=== PATIENT | male | born 1990 | race Two or more races ===

== ENCOUNTER 2024-06-20 10:05 | Outpatient (AMB) | payer OTHER, SELFPAY ==
--- NOTE | 2024-06-20 10:11 | A.OFFVIS_ITS ---
Vital Signs 06/20/24 10:14 Height 5 ft 8 in Weight 218 lb 11.177 oz BMI 33.2 BP 128/70 Blood Pressure Location Lt brachial Position Sitting Pulse 68 Pulse Source Pulse Oximeter Pulse Oximetry (%) 98 Oxygen Delivery Method Room Air Intake Visit Reasons: Colonoscopy Screening Intake Note: NEW PATIENT Oleg presents in office today for a scheduled colo scrn. Prior hx of colo/egd? None reported per referral. No relevant surgeries or FMHx. Meds and Allergies reviewed? Y Any significant concerns or questions? Cramping, diarrhea, constipation, intermittently throughout multiple years. Pharmacy verified? [facility] ([facility]; Father - Crohn's Audio Tape Librarian Required: No Allergies No Known Allergies Allergy (Verified 06/20/24 10:13) HPI HPI Colonoscopy Screening: Details: 33-year-old male with no significant past medical history is here today for initial evaluation. Patient has been sent by PCP. Patient reports that since he was in his 20s he has been dealing with frequent bowel movements. Cramping and pain prior to bowel movement. Pain in the whole abdomen. Patient denies any epigastric pain or discomfort. Denies any melena, hematochezia, unintentional weight loss or ribbon like stools. Patient reports that his father was diagnosed with Crohn's when he was a teenager. Patient reports that he has been tested for IBD in his early 20s. Patient reports that his symptoms are getting worse. Denies any mucus in his stools. Patient is avoiding lactose. Patient is eating healthy food. Patient reports that his bowel movements have nothing to do with meals. Denies postprandial diarrhea. [facility] Medical History (Updated 06/20/24 @ 10:41 by Dena Encinas, [facility]) Family history of Crohn's disease Chronic headache Erectile dysfunction Surgical History (Updated 06/20/24 @ 10:17 by TAL Serrano) Status post left shoulder hemiarthroplasty [place] teeth removed History of tonsillectomy History of adenoidectomy Family History (Updated 06/20/24 @ 10:17 by TAL Serrano) Father Crohn's disease Social History (Updated 06/20/24 @ 10:17 by TAL Serrano) Alcohol intake: current Comment: 1-2 / week Patient Tobacco Use Status: Never used Tobacco Review of Systems Const Denies weight gain and Denies weight loss ENT Reports no additional complaints, Denies dysphagia and Denies odynophagia Card Reports no additional complaints Resp Reports no additional complaints GI Denies abdominal pain, Denies belching, Denies melena, Reports bloating, Denies change in bowel habits, Reports tenesmus, Reports GI cramping, Denies dysphagia, Denies excessive flatus, Denies dyspepsia, Denies heartburn, Denies diarrhea, Reports loose stools, Denies nausea, Denies odynophagia and Denies vomiting Reports no additional complaints Musc Reports no additional complaints Neuro Reports no additional complaints Psych Reports no additional complaints Endo Reports no additional complaints Physical Exam Vital Signs: Last Vital Signs Pulse 68 06/20/24 10:14 BP 128/70 06/20/24 10:14 Pulse Ox 98 06/20/24 10:14 Oxygen Delivery Method Room Air 06/20/24 10:14 BMI result Body Mass Index 33.2 Const General: healthy appearing, no acute distress and well developed Nutritional Appearance: well nourished Orientation/consciousness: patient oriented x3 Resp Effort & Inspection: normal respiratory effort, able to speak in complete sentences, no tracheal deviation and symmetric chest movement Auscultation: clear to auscultation bilaterally Cardio Rate: regular rate GI Inspection: Yes normal to inspection and No distended Palpation (GI): Soft to palpation, not firm, nontender and No hepatosplenomegaly present Auscultation: normal bowel sounds General: Yes no CVA tenderness Back/Spine/Pelvis Back: no CVA tenderness Skin General skin exam: elasticity normal, turgor normal and dry skin Neuro General: patient oriented x3 Psych Appearance: grossly normal Mental Status: mental status grossly normal Assessment & Plan Assessment & Plan (1) Family history of Crohn's disease: Code(s): Z83.79 - Family history of other diseases of the digestive system Category: Medical (2) Diarrhea: Code(s): R19.7 - Diarrhea, unspecified Qualifiers: Diarrhea type: functional diarrhea Qualified Code(s): K59.1 - Functional diarrhea Plan Message sent to surgical schedulers to schedule colonoscopy for patient. Patien t had symptoms of diarrhea on and off for extensive time, however he does report that his symptoms are getting worse. Patient denies any melena, hematochezia, unintentional weight loss or ribbon like stools. Family history of IBD. Patient's father was diagnosed with Crohn's as a teenager. Occasional postprandial abdominal bloating. Will check CRP, fecal calprotectin and rule out celiac. Patient will return in 2 months, sooner on as needed basis. He is agreeable to this plan and verbalizes understanding of instructions. He was given the opportunity to ask questions and all questions answered. Thank you for allowing me to participate in his care Orders: Orders Transglutaminase IgA Today R10.9 - Unspecified abdominal pain C Reactive Protein Today K58.9 - Irritable bowel syndrome, unspecified Calprotectin, Fecal Today R15.9 - Full incontinence of feces Medications: New bisacodyl (Dulcolax (bisacodyl)) take 4 tabs at noon the day before your colonoscopy 20 mg (4 x 5 mg) PO ONCE 1 day 4 tabs 0RF Z12.11 - Encounter for screening for malignant neoplasm of colon polyethylene glycol 3350 (Miralax) As directed by gastroenterology department at [facility] 238 grams PO ONCE 238 grams 0RF Z12.11 - Encounter for screening for malignant neoplasm of colon Coding Level of Care Code New Pt Level 4 (53825) Diagnoses Family history of Crohn's disease Z83.79 Functional diarrhea K59.1 Diarrhea type: functional diarrhea Time Spent (min) 45 Comment 30 minutes spent with patient and additional 15 minutes spent reviewing his records
[2024-06-20 10:14] VITALS: BP 128/70; PULSE 68; O2SAT 98; BMI 33.2
--- OUTSIDE RECORDS SUMMARY | 2024-06-21 00:03 | XMS_ITS | Continuity of Care Document ---
Author Name [facility] Organization [facility] Care Team Providers Care Flange Turner Name Role Phone [facility] Unavailable Unavailable Problems Combined list of problems from Department of Defense and Veterans Affairs facilities. It does not include entries that were removed or entered in error. Problem Status Onset Date Problem Type Date of Resolution Comments Source Cervicalgia Active 013 Condition [facility] Joint pain Active 013 Condition Mar 21, 2024 Entered By: FLAVIA PINZON Comment: joint pain, localized in the hip [facility] Chronic recurrent sinusitis Active Condition [place] Exposure to potentially hazardous substance Active Condition Feb 22, 2024 Entered By: ALBIN FARRELL Comment: [facility] [place] [facility] Irritable bowel syndrome characterized by alternating bowel habit Active Condition Feb 22, 2024 Entered By: ALBIN FARRELL Comment: Alternates Between Constipation and Diarrhea; Gets Colicky Crampy ABD PainAug 2023 Entered By: ALBIN FARRELL Comment: Request Diagnost Colonoscopy to Exclude Organic Disease [place] Labral Tear Active Condition Feb 22, 2024 Entered By: ALBIN FARRELL Comment: Traumatic Tear, Labrum. L Shldr In [employer]; [place]: Was Exercising Feb 22, 2024 Entered By: ALBIN FARRELL Comment: Underwent Surg Repair [place] Mechanical low back pain Active Condition Feb 22, 2024 Entered By: ALBIN FARRELL Comment: Non-Radicular LBP x Yrs; Has Seen PT and ChiropractorAug 2023 Entered By: ALBIN FARRELL Comment: Has Had MRI of L-Spine w/i Last Two Yrs;Feb 22, 2024 Entered By: ALBIN FARRELL Comment: No Definitive Pathology Noted for the LBP; LBP is Non-RadicularAug 2023 Entered By: ALBIN FARRELL Comment: Dorsalgia, T-SpineAug 2023 Entered By: ALBIN FARRELL Comment: Gets X-Ray's T and L Spines; Do PT alsoAug 2023 Entered By: ALBIN FARRELL Comment: Is Weight-Lead [employer] [place] Migraine without aura Active Condition Feb 22, 2024 Entered By: ALBIN FARRELL Comment: Sees Private Neuro at [facility] as of 2023; Attempt Prophylaxis w/ Anti-Seizure Med;Feb 22, 2024 Entered By: ALBIN FARRELL Comment: Insomnia is a FactorAug 2023 Entered By: ALBIN FARRELL Comment: Has Had MRI of Brain: No Organic Disease [place] Primary erectile dysfunction Active Condition [place] Tinnitus Active Condition [place] Brace Inactive Condition [facility] bone cyst Active Condition [facility] joint pain, localized in the hip Active Condition [facility] cervicalgia Active Condition [facility] abdominal pain Active Condition [facility] visit for: services physical demobilization NG Active Condition [facility] groin (inguinal) pain Active Condition [facility] fatigue Active Condition [facility] diffuse joint pain (arthralgias) Inactive Condition [facility] feeling underweight Active Condition [facility] emotional lability Active Condition [facility] changed sexual interest (libido): decreased Active Condition [facility] male erectile disorder Active Condition [facility] wrist sprain Inactive Condition [facility] upper respiratory infection Inactive Condition [facility] lower back pain Active Condition [facility] dermatophytosis tinea corporis Active Condition [facility] visit for: administrative purpose Inactive Condition [facility] Other Physical Therapy Active Condition [facility] joint pain, localized in the left shoulder Active Condition [facility] Aftercare Following Surgery Of Musculoskeletal System Inactive Condition [facility] Aftercare Following Surgery Active Condition [facility] Laboratory Studies Inactive Condition [facility] visit for: preoperative orthopedic exam Inactive Condition [facility] shoulder separation Inactive Condition [facility] visit for: screening exam STD Inactive Condition [facility] acne Inactive Condition [facility] ingrowing toenail Inactive Condition [facility] otitis externa Inactive Condition [facility] acne vulgaris Inactive Condition [facility] skin disorders appendage hair follicle folliculitis Inactive Condition [facility] joint pain, localized in the shoulder Active Condition [facility] strain Inactive Condition [facility] Vaccines Prophylactic Need Inactive Condition [facility] visit for: services physical Active Condition [facility] visit for: services physical pre-deployment Active Condition [facility] visit for: issue medical certificate Inactive Condition [facility] common cold Inactive Condition [facility] sinusitis Inactive Condition [facility] pharyngitis Inactive Condition [facility] Diagnosis: ICD-10-CM M54.51 Vertebrogenic low back pain Active Diagnosis [place] Diagnosis: ICD-10-CM Z71.89 Other specified counseling Active Diagnosis [place] Diagnosis: ICD-10-CM M54.50 Low back pain, unspecified Active Diagnosis [place] Diagnosis: ICD-10-CM Z77.29 Contact with and exposure to other hazardous substances Active Diagnosis [facility] Medications Combined list of outpatient medications from Department of Defense and Veterans Affairs facilities.Medications provided include 1) outpatient medications from the last 15 months, and 2) patient-reported medications. Medication Details Route Status Patient Instructions Prescription Expires Prescription Number Last Dispense Date Ordering Provider Order Date Order Qty Source DICYCLOMINE HCL 20MG TAB TAKE TWO TABLETS BY MOUTH FOUR TIMES DAILY NEEDED (FOR IRRITABL E BOWEL SYNDROME ) ORAL ACTIVE 05/09/2025 [id number] JARED FARRELL 2023 240 [place] DICYCLOMINE HCL 20MG TAB TAKE TWO TABLETS BY MOUTH FOUR TIMES DAILY NEEDED (FOR IRRITABL E BOWEL SYNDROME ) ORAL DISCONT INUED 02/22/2025 [id number] JARED FARRELL 2023 240 [place] FLUTICASONE PROPIONATE 50MCG/SPRAY SOLN,NASAL, 16GM INSTILL 1 SPRAY INTO EACH NOSTRIL TWICE DAILY FOR NASAL IRRITATI ON/INFLA MMATION NASAL ACTIVE 05/09/2025 [id number] JARED FARRELL 2023 1 [place] IBUPROFEN 600MG TAB TAKE ONE TABLET BY MOUTH NEEDED ORAL ACTIVE JARED FARRELL 2023 [place] MELOXICAM 15MG TAB TAKE ONE TABLET BY MOUTH ONCE DAILY ORAL ACTIVE JARED FARRELL 2023 IELD OTHER CAP/TAB TAKE SEIZURE MED FOR MIGRAINE CASSIDY PROPHYLA XIS - NAME? BY MOUTH ONCE DAILY ORAL ACTIVE JARED FARRELL 2023 IELD SILDENAFIL CITRATE 100MG TAB TAKE ONE TABLET BY MOUTH ONCE DAILY ORAL ACTIVE JARED FARRELL 2023 IELD SUMATRIPTAN SUCCINATE 50MG TAB TAKE ONE TABLET BY MOUTH DIRECTED AT ONSET OF HEADACHE ; MAY REPEAT IN 2 HOURS IF FIRST DOSE IS NOT EFFECTIV E ORAL DISCONT INUED 03/23/2024 [id number] JARED FARRELL 2023 18 [place] SUMATRIPTAN SUCCINATE 50MG TAB TAKE ONE TABLET BY MOUTH DIRECTED AT ONSET OF HEADACHE ; MAY REPEAT IN 2 HOURS IF FIRST DOSE IS NOT EFFECTIV E ORAL 06/07/2024 [id number] 4 JARED FARRELL 2023 18 [place] Allergies, Adverse Reactions, Alerts Combined list of allergies from Department of Defense and Veterans Affairs facilities. It does not include entries that were removed or entered in error. Substance Category Reaction Severity Reaction type Status Date Reported Comments Source No Known Allergies Drug allergy (disorder) active 09/27/2012 [facility] Immunizations Combined list of available immunizations from the Department of Defense and Veterans Affairs facilities. 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 Status Comments Source Influenza, seasonal, injectable 4 2012 [id number] Sanofi Pasteur ([facility]) complet ed Influenza , seasonal, injectabl e DoD Influenza, seasonal, injectable, preservative free 3 2011 [id number] Sanofi Pasteur ([facility]) complet ed Influenza , seasonal, injectabl e, preservat kathya free DoD ANTHRAX VACCINE, UNSPECIFIED 2 2009 319 complet ed Lot#: [id number] [facility] I-PulseN [employer] [facility] anthrax vaccine 2 2009 [id number] [employer] [place] ([facility]) complet ed anthrax vaccine DoD VACCINIA (SMALLPOX) 1 2009 75 complet ed vaccinia (smallpox ) vaccine Lot#: [id number] [facility] 1[employer] [facility] vaccinia (smallpox) vaccine 1 2009 [id number] [facility] ([facility]) complet ed vaccinia (smallpox ) vaccine DoD ANTHRAX VACCINE, UNSPECIFIED 1 2009 319 complet ed Lot#: [id number] [facility] [employer] [facility] influenza virus vaccine, split virus (incl. purified surface antigen)-reti red CODE 1 2009 [id number] Sanofi Pasteur ([facility]) complet ed influenza virus vaccine, split virus (incl. purified surface antigen)- retired CODE DoD anthrax vaccine 1 2009 [id number] [employer] [place] ([facility]) complet ed anthrax vaccine DoD HEP A, ADULT 2 2009 52 complet ed hepatitis A vaccine, adult dosage Lot#: [id number] A [facility] hepatitis A vaccine, adult dosage 2 2009 [id number] [facility] [facility] (B) complet ed hepatitis A vaccine, adult dosage DoD TYPHOID, VICPS 1 2009 101 complet ed typhoid Vi capsular polysacch aride vaccine Lot#: [id number] Mfr: SANOFI PASTEUR [facility] typhoid Vi capsular polysaccharid e vaccine 1 2009 [id number] Sanofi Pasteur ([facility]) complet ed typhoid Vi capsular polysacch aride vaccine DoD HEP A, ADULT 1 2008 52 complet ed hepatitis A vaccine, pediatric dosage, unspecifi ed formulati on Lot#: [id number] A [facility] measles, mumps and rubella virus vaccine 1 2008 03 () Not Given measles, mumps and rubella virus vaccine DoD varicella virus vaccine 1 2008 21 () Not Given varicella virus vaccine DoD hepatitis A vaccine, pediatric dosage, unspecified formulation 1 2008 [id number] 31 [facility] ([facility]) complet ed hepatitis A vaccine, pediatric dosage, unspecifi ed formulati on DoD hepatitis B vaccine, unspecified formulation 1 2008 45 () Not Given hepatitis B vaccine, unspecifi ed formulati on DoD MENINGOCOCCAL MCV4P 1 2008 114 complet ed meningoco ccal polysacch aride (groups A, C, Y and W-135) diphtheri a toxoid conjugate vaccine (MCV4P) Lot#: [id number] Mfr: [employer] [facility] POLIO, UNSPECIFIED FORMULATION 1 2008 89 complet ed polioviru s vaccine, inactivat ed Lot#: [id number] Mfr: [facility]FI PASTEUR [facility] TDAP 2008 115 complet ed tetanus toxoid, reduced diphtheri a toxoid, and acellular pertussis vaccine, adsorbed Lot#: [id number] A [facility] poliovirus vaccine, inactivated 1 2008 [id number] 10 Sanofi Pasteur ([facility]) complet ed polioviru s vaccine, inactivat ed DoD influenza virus vaccine, split virus (incl. purified surface antigen)-reti red CODE 1 2008 [id number] 15 [employer] (CSL) complet ed influenza virus vaccine, split virus (incl. purified surface antigen)- retired CODE DoD meningococcal polysaccharid e (groups A, C, Y and W-135) diphtheria toxoid conjugate vaccine (MCV4P) 1 2008 [id number] Sanofi Pasteur ([facility]) complet ed meningoco ccal polysacch aride (groups A, C, Y and W-135) diphtheri a toxoid conjugate vaccine (MCV4P) DoD tetanus toxoid, reduced diphtheria toxoid, and acellular pertu is vaccine, adsorbed 1 2008 [id number] 115 [employer] (SKB) complet ed tetanus toxoid, reduced diphtheri a toxoid, and acellular pertussis vaccine, adsorbed DoD Novel influenza-H1N 1-09, injectable 1 2008 [id number] 1 127 [employer] l Saurabh. (NOV) complet ed Novel influenza -Y1D5-77, injectabl e DoD Results Combined list of recent chemistry, hematology and other laboratory results from Department of Defense and Veterans Affairs, ranging from 15 months to all on record, depending upon the facility. Order Name Results Value Reference Range Date Interpretation Specimen Comments Source FSH FOLLITROPI N [UNITS/VOL UME] IN SERUM OR PLASMA 2.67 1 - 19 06/14 Specimen Type: SERUM No comment entered. Ordering Provider: ALBIN FARRELL Report Released Date/Time: May 08, 2024 11:11 AM Reporting Lab: [facility] [address] [address] Performing Lab: [facility] [address] [address] [place] LH LUTROPIN [UNITS/VOL UME] IN SERUM OR PLASMA 2.51 1 - 9 06/14 Specimen Type: SERUM No comment entered. Ordering Provider: ALBIN FARRELL Report Released Date/Time: May 08, 2024 11:11 AM Reporting Lab: [facility] [address] [address] Performing Lab: [facility] [address] [address] [place] PSA PROSTATE SPECIFIC AG [MASS/VOLU ME] IN SERUM OR PLASMA 0.48 ng/mL 0.00 - 4.00 06/14 Specimen Type: SERUM No comment entered. Ordering Provider: ALBIN FARRELL Report Released Date/Time: May 08, 2024 11:11 AM Reporting Lab: [address] [address] Performing Lab: [address] [address] [place] PTH INTACT PARATHYRIN .INTACT [MASS/VOLU ME] IN SERUM OR PLASMA 57.4 pg/mL 8.7 - 77.1 06/14 Specimen Type: SERUM No comment entered. Ordering Provider: ALBIN FARRELL Report Released Date/Time: May 08, 2024 11:11 AM Reporting Lab: [address] [address] Performing Lab: [address] [address] [place] TESTOSTE LALO, TOTAL (WHV) TESTOSTERO NE [MASS/VOLU ME] IN SERUM OR PLASMA 303.02 ng/dL 220.00 - 892.00 06/14 Specimen Type: SERUM No comment entered. Ordering Provider: ALBIN FARRELL Report Released Date/Time: May 08, 2024 11:11 AM Reporting Lab: [address] [address] Performing Lab: [facility] [address] [facility] [address] [place] TESTOSTE LALO-GEOFF E (qu) TESTOSTERO NE FREE [MASS/VOLU ME] IN SERUM OR PLASMA 75.3 pg/mL 46.0 - 224.0 06/14 Specimen Type: SERUM Comment: The concentrati on of free testosteron e is derived from a mathematica l model using total testosteron e by LCMSMS, sex hormone binding globulin and albumin. This test was developed and its analytical performance characteris tics have been determined by [place], [place]. It has not been cleared or approved by the U.S. Food and Drug Administrat ion. This assay has been validated pursuant to the CLIA regulations and is used for clinical purposes. Test Performed by [facility], [facility], [address] [place] [address] [place] M.D., Ph.D., Director of Laboratorie s , CLIA [id number] TEST PERFORMED AT: , Ordering Provider: ALBIN FARRELL Report Released Date/Time: May 08, 2024 11:11 AM Reporting Lab: [address] [address] Performing Lab: [facility] [address] [address] [place] MICROALB UMIN CREATINI NE RATIO PANEL MICROALBUM IN/CREATIN INE [MASS RATIO] IN URINE 5.7 mg/g 0 - 29.9 04/13 Specimen Type: URINE No comment entered. Ordering Provider: ALBIN FARRELL Report Released Date/Time: Feb 22, 2024 01:07 PM Reporting Lab: [address] [address] Performing Lab: [address] [address] [place] MICROALB UMIN CREATINI NE RATIO PANEL MICROALBUM IN [MASS/VOLU ME] IN URINE 0.8 mg/dL 04/13 Specimen Type: URINE No comment entered. Ordering Provider: ALBIN FARRELL Report Released Date/Time: Feb 22, 2024 01:07 PM Reporting Lab: [address] [address] Performing Lab: [address] [address] [place] MICROALB UMIN CREATINI NE RATIO PANEL CREATININE [MASS/VOLU ME] IN URINE 140.93 mg/dL 04/13 Specimen Type: URINE No comment entered. Ordering Provider: ALBIN FARRELL Report Released Date/Time: Feb 22, 2024 01:07 PM Reporting Lab: [address] [address] Performing Lab: [address] [address] [place] TSH THYROTROPI N [UNITS/VOL UME] IN SERUM OR PLASMA 1.05 u[IU]/mL 0.35 - 5.00 04/13 Specimen Type: SERUM No comment entered. Ordering Provider: ALBIN FARRELL Report Released Date/Time: Feb 22, 2024 01:07 PM Reporting Lab: [address] [address] Performing Lab: [address] [address] [place] URIC ACID URATE [MASS/VOLU ME] IN SERUM OR PLASMA 6.5 mg/dL 3.5 - 7.2 04/13 Specimen Type: SERUM No comment entered. Ordering Provider: ALBIN FARRELL Report Released Date/Time: Feb 22, 2024 01:07 PM Reporting Lab: [address] [address] Performing Lab: [address] [address] [place] URINALYS IS COLOR OF URINE Light-Ye llow 04/13 Specimen Type: URINE Comment: If Glucose = >500 and Ketones are positive, please alert the Physician. Ordering Provider: ALBIN FARRELL Report Released Date/Time: Feb 22, 2024 01:07 PM Reporting Lab: [address] [address] Performing Lab: [address] [address] [place] URINALYS IS APPEARANCE OF URINE Clear 04/13 Specimen Type: URINE Comment: If Glucose = >500 and Ketones are positive, please alert the Physician. Ordering Provider: ALBIN FARRELL Report Released Date/Time: Feb 22, 2024 01:07 PM Reporting Lab: [address] [address] Performing Lab: [address] [address] [place] URINALYS IS GLUCOSE [MASS/VOLU ME] IN URINE Normalmg /dL 04/13 Specimen Type: URINE Comment: If Glucose = >500 and Ketones are positive, please alert the Physician. Ordering Provider: ALBIN FARRELL Report Released Date/Time: Feb 22, 2024 01:07 PM Reporting Lab: [address] [address] Performing Lab: [address] [address] [place] URINALYS IS KETONES [MASS/VOLU ME] IN URINE BY TEST STRIP NEGATIVE mg/dL 04/13 Specimen Type: URINE Comment: If Glucose = >500 and Ketones are positive, please alert the Physician. Ordering Provider: ALBIN FARRELL Report Released Date/Time: Feb 22, 2024 01:07 PM Reporting Lab: [address] [address] Performing Lab: [address] [address] [place] URINALYS IS ERYTHROCYT ES [PRESENCE] IN URINE SEDIMENT BY LIGHT MICROSCOPY NEGATIVE mg/dL 04/13 Specimen Type: URINE Comment: If Glucose = >500 and Ketones are positive, please alert the Physician. Ordering Provider: ALBIN FARRELL Report Released Date/Time: Feb 22, 2024 01:07 PM Reporting Lab: [address] [address] Performing Lab: [address] [address] [place] URINALYS IS PROTEIN [MASS/VOLU ME] IN URINE BY TEST STRIP NEGATIVE mg/dL 04/13 Specimen Type: URINE Comment: If Glucose = >500 and Ketones are positive, please alert the Physician. Ordering Provider: ALBIN FARRELL Report Released Date/Time: Feb 22, 2024 01:07 PM Reporting Lab: [address] [address] Performing Lab: [address] [address] [place] URINALYS IS NITRITE [PRESENCE] IN URINE NEGATIVE mg/dL 04/13 Specimen Type: URINE Comment: If Glucose = >500 and Ketones are positive, please alert the Physician. Ordering Provider: ALBIN FARRELL Report Released Date/Time: Feb 22, 2024 01:07 PM Reporting Lab: [address] [address] Performing Lab: [address] [address] [place] URINALYS IS BILIRUBIN. TOTAL [PRESENCE] IN URINE NEGATIVE mg/dL 04/13 Specimen Type: URINE Comment: If Glucose = >500 and Ketones are positive, please alert the Physician. Ordering Provider: ALBIN FARRELL Report Released Date/Time: Feb 22, 2024 01:07 PM Reporting Lab: [address] [address] Performing Lab: [address] [address] [place] URINALYS IS SPECIFIC GRAVITY OF URINE BY REFRACTOME TRY 1.024 1.016 - 1.022 04/13 H Specimen Type: URINE Comment: If Glucose = >500 and Ketones are positive, please alert the Physician. Ordering Provider: ALBIN FARRELL Report Released Date/Time: Feb 22, 2024 01:07 PM Reporting Lab: [address] [address] Performing Lab: [address] [address] [place] URINALYS IS PH OF URINE BY TEST STRIP 6.0 5.0 - 9.0 04/13 Specimen Type: URINE Comment: If Glucose = >500 and Ketones are positive, please alert the Physician. Ordering Provider: ALBIN FARRELL Report Released Date/Time: Feb 22, 2024 01:07 PM Reporting Lab: [address] [address] Performing Lab: [address] [address] [facility] UROBILINOG EN [MASS/VOLU ME] IN URINE BY TEST STRIP Normalmg /dL <2.0 - 2.0 04/13 Specimen Type: URINE Comment: If Glucose = >500 and Ketones are positive, please alert the Physician. Ordering Provider: ALBIN FARRELL Report Released Date/Time: Feb 22, 2024 01:07 PM Reporting Lab: [address] [address] Performing Lab: [address] [address] [facility] UR[facility] IS LEUKOCYTE ESTERASE [PRESENCE] IN URINE BY TEST STRIP NEGATIVE 04/13 Specimen Type: URINE Comment: If Glucose = >500 and Ketones are positive, please alert the Physician. Ordering Provider: ALBIN FARRELL Report Released Date/Time: Feb 22, 2024 01:07 PM Reporting Lab: [address] [address] Performing Lab: [address] [address] [facility] Vital Signs Combined list of inpatient and outpatient Vital Signs from Department of Defense and Veterans Affairs, ranging from 12 months to all on record, depending upon the facility. Vital Sign Value Date Comments Source SYSTOLIC BLOOD PRESSURE 121 05/08/2024 11:18:21 [place] DIASTOLIC BLOOD PRESSURE 59 05/08/2024 11:18:21 [place] PULSE OXIMETRY 97 05/08/2024 11:18:21 [place] WEIGHT 210 05/08/2024 11:18:21 [place] BMI 32kg/m2 05/08/2024 [facility].9 05/08/[facility]24 [facility]18[facility] [facility] [place] PULSE 79 05/08/2024 11:18:21 [place] RESPIRATION 18 05/08/2024 11:18:21 [place] SYSTOLIC BLOOD PRESSURE 125 02/22/2024 11:12:46 [place] DIASTOLIC BLOOD PRESSURE 73 02/22/2024 11:12:46 [place] PULSE OXIMETRY 97 02/22/2024 11:12:46 [place] 207 02/22/2024 11:12:46 [place] TEMPERATURE 98 02/22/2024 11:12:46 [place] PULSE 78 02/22/2024 11:12:46 [place] RESPIRATION 18 02/22/2024 11:12:46 [place] Encounters Combined list of: 1) Encounters from Department of Veterans Affairs facilities going back up to thelast 18 months. 2) Encounters from the Department of [facility] facilities going back up to 280 months. Location Location Details Encounter Type Encounter Number Reason For Visit Attending Provider ADM Date DC Date Status Disposition Source [employer]([facility]) OUTPATIENT [id number] Cold symptom s DAVE CARCAMO A 08/20 Sick at Home/Quarter s [employer]([facility]) [employer]([facility]) OUTPATIENT [id number] Cold symptom s worseni SUZETTE Kebede A 08/26 Released w/o Limitations [employer]([facility]) [employer](Soc ial Work ([facility])) OUTPATIENT [id number] over[place] s MEHDI Villa 10/02 Released w/o Limitations [employer](S ocial Work ([facility]) ) [employer]([facility]) OUTPATIENT [id number] JEFF Rasheed 03/23 Released w/o Limitations [employer] [employer]([facility]) OUTPATIENT [id number] DAILY- Delpoym ent YONI CONNOLLY 03/26 Released w/o Limitations [employer] OUTPATIENT [id number] 05/18 Released w/o [facility] OUTPATIENT [id number] 05/20 Released w/o [facility] OUTPATIENT [id number] 05/20 Released w/o [facility] OUTPATIENT [id number] 05/27 Released w/o Limitations [facility] [employer]([facility]) OUTPATIENT [id number] Left Shoulde r Pain GOMEZ CROOK R 03/03 Released w/o Limitations [employer]( [facility]) [employer]([facility]) OUTPATIENT [id number] acne f/u DOWNNIKOLE MICHAUD P 05/05 Released w/o Limitations [employer]([facility]) [employer]([facility] Team B) OUTPATIENT [id number] ear issues 15 GONZALO, PIPER R 07/13 Released w/o Limitations [employer]([facility] Team B) [employer]([facility] Team B) OUTPATIENT [id number] toenail removal GONZALO, PIPER R 07/16 Released w/o Limitations [employer]([facility] Team B) [employer]([facility] Team B) OUTPATIENT [id number] f/u toenail removal GONZALO, PIPER R 07/20 Released w/o Limitations [employer]([facility] Team B) [employer]([facility]) OUTPATIENT [id number] CHON Disla 07/21 Released w/o Limitations [employer]( [facility] Clinic) [employer](Ort hopedic [facility]) OUTPATIENT [id number] joint pain, localiz ed in the lt shouldtommie r PARTH ORLANDO 08/02 Released w/o Limitations [employer]([facility]oped ic Clinic) [employer]([facility] Team B) OUTPATIENT [id number] consult roxanne CHON Ramsey 08/02 Released w/o Limitations [employer]([facility] Team B) [employer]([facility] Team A) OUTPATIENT [id number] Notes Entered by: Carmelo AGUERO 21 Sep 2011 1338 ------- ------- ------- ------- -- std check NARA TONYA Hanson 09/20 Released w/o Limitations [facility](Carmelo fink [facility] Team A) [facility]) OUTPATIENT [id number] F/U MRI results lt PARTH Interiano 09/22 Released w/o Limitations [employer](O rthoped ic Clinic) [facility] ent Care [facility]) OUTPATIENT [id number] Notes Entered by: ZHAO SAHU 25 Sep 2011 1941 ------- ------- ------- ------- -- Rt HARRY Alarcon 09/24 Released with Work/Duty Limitations [facility] Medical [facility]) [facility]) OUTPATIENT [id number] Notes Entered by: FREDRICK HOYT 27 Sep 2011 0831 ------- ------- ------- ------- -- Juan Miguel delong Rt ALBIN Murcia 09/25 Released with Work/Duty Limitations [facility](O rthoped ic Clinic) [facility] Care [facility]) OUTPATIENT [id number] Notes Entered by: Heather WALTON 02 Oct 2011 1322 ------- ------- ------- ------- -- My pain meds aren't working MILDRED SHAW 10/01 Released w/o Limitations [facility]) [facility]) TELE CONSULT [id number] Notes Entered by: DIDIER GLORIA 05 Oct 2011 0848 ------- ------- ------- ------- -- Results RAMO STROUD 10/03 Released to Self Care [employer](F amily Practic e Clinic) [employer](Ort hopedic Clinic) OUTPATIENT [id number] Post op surgery 23PARTH Ponce 10/05 Released w/o Limitations [employer](O rthoped ic Clinic) [employer](Phy sical Therapy) OUTPATIENT [id number] sp L shoulde r ANUEL Mares 10/10 Released w/o Limitations [employer](P hysical Therapy ) [employer](Phy sical Therapy) OUTPATIENT [id number] lt shoulde samir SHANELLE MCKINLEY 10/11 Released w/o Limitations [employer](P hysical Therapy ) [employer](Phy sical Therapy) OUTPATIENT [id number] lt mounaSHANELLE Isaac 10/18 Released w/o Limitations [employer](P hysical Therapy ) [employer](Phy sical Therapy) OUTPATIENT [id number] SHANELLE MCKINLEY 10/19 Released w/o Limitations [employer](P hysical Therapy ) [employer](Phy sical Therapy) OUTPATIENT [id number] SHANELLE MCKINLEY 10/20 Released w/o Limitations [employer](P hysical Therapy ) [employer](Phy sical Therapy) OUTPATIENT [id number] lt SHANELLE Larsen 10/21 Released w/o Limitations [employer](P hysical Therapy ) [employer](Phy sical Therapy) OUTPATIENT [id number] lt juan miguel dawson SHANELLE MCKINLEY 10/25 Released w/o Limitations [employer](P hysical Therapy ) [employer](Gilma sandhya [facility] Team B) OUTPATIENT [id number] post CHON SANTOS 10/25 Released w/o Limitations [employer](Carmelo fink [facility] Team B) [employer](Phy sical Therapy) OUTPATIENT [id number] lt mounaSHANELLE Isaac 10/27 Released w/o Limitations [employer](P hysical Therapy ) [employer](Phy sical Therapy) OUTPATIENT [id number] lt juan miguel MCKINLEYSHANELLE Ezio 10/28 Released w/o Limitations [employer](P hysical Therapy ) [employer](Phy sical Therapy) OUTPATIENT [id number] LULI Grace 11/02 Released w/o Limitations [employer](P hysical Therapy ) [employer](Phy sical Therapy) OUTPATIENT [id number] LULI Grace 11/02 Released w/o Limitations [employer](P hysical Therapy ) [facility](Or hopedic Clinic) OUTPATIENT [id number] F/U PARTH Edmonds 11/02 Released w/o Limitations [employer](O rthoped ic Clinic) [facility]) OUTPATIENT [id number] Notes Entered by: DARWIN MAHAJAN 07 Nov 2011 2215 ------- ------- ------- ------- -- lost his post op splint MILDRED SHAW 11/06 Released w/o Limitations [employer]([facility]) [facility](Phy sical Therapy) OUTPATIENT [id number] LULI AWAN 11/10 Released w/o Limitations [employer](P hysical Therapy ) [facility] hoped[facility]) OUTPATIENT [id number] Notes Entered by: FREDRICK HOYT 12 Nov 2011 1304 ------- ------- ------- ------- -- Juan Miguel Calero with Janae morejon MICHAEL TROY 11/11 Released w/o Limitations [employer](O rthoped ic Clinic) [employer](Phy sical Therapy) OUTPATIENT [id number] LULI Grace 11/17 Released w/o Limitations [employer](P hysical Therapy ) [employer](Phy sical Therapy) OUTPATIENT [id number] LULI Grace 11/21 Released w/o Limitations [employer](P hysical Therapy ) [employer](Phy sical Therapy) OUTPATIENT [id number] lt juan miguel dawson LULI AWAN 11/22 Released w/o Limitations [employer](P hysical Therapy ) [employer](Phy sical Therapy) OUTPATIENT [id number] lt juan miguel dawson ANUEL LING 11/23 Released w/o Limitations [employer](P hysical Therapy ) [employer](Phy sical Therapy) OUTPATIENT [id number] lt juan miguel dawson LULI AWAN 11/28 Released w/o Limitations [employer](P hysical Therapy ) [employer](Ort hopedic Clinic) OUTPATIENT [id number] lt juan miguel dawson [place] [place] 11/30 Released w/o Limitations [employer](O rthoped ic Clinic) [employer](Phy sical Therapy) OUTPATIENT [id number] lt juan miguel dawson SHANELLE MCKINLEY 12/06 Released w/o Limitations [employer](P hysical Therapy ) [employer](Fli ght Medicine Clinic) OUTPATIENT [id number] renew profile FILES, BILLY Ezio 12/19 Released w/o Limitations [employer](F light Medicin e Clinic) [employer](Phy sical Therapy Clinic) OUTPATIENT [id number] Afterharinder Davidsoni ng Surgery DARRYL RUSSO 12/23 Released w/o Limitations [employer](P hysical Therapy Clinic) [employer](Ref erral Managemen t Clinic) TELE CONSULT [id number] Notes Entered by: TERESA COFFMAN 24 Dec 2011 1323 ------- ------- ------- ------- -- Physica l Therapy Results FILES, BILLY Ezio 12/23 [employer](R eferral Managem ent Clinic) [employer](Phy sical Therapy Clinic) OUTPATIENT [id number] CYNTHIA MERCADO 12/26 Released w/o Limitations [employer](P hysical Therapy Clinic) [employer](Phy sical Therapy Clinic) OUTPATIENT [id number] CYNTHIA MERCADO 12/29 Released w/o Limitations [employer](P hysical Therapy Clinic) [employer](Phy sical Therapy Clinic) OUTPATIENT [id number] ZACK VARNER 01/02 Released w/o Limitations [employer](P hysical Therapy Clinic) [employer](Phy sical Therapy Clinic) OUTPATIENT [id number] CYNTHIA MERCADO 01/09 Released w/o Limitations [employer](P hysical Therapy Clinic) [employer]([facility]hy [facility]ical Therapy Clinic) OUTPATIENT [id number] ZACK VARNER 01/13 Released w/o Limitations [employer](P hysical Therapy Clinic) [employer](Phy sical Therapy Clinic) OUTPATIENT [id number] DARRYL RUSSO 01/16 Released w/o Limitations [employer](P hysical Therapy Clinic) [employer](Phy sical Therapy Clinic) OUTPATIENT [id number] ZACK VARNER 01/20 Released w/o Limitations [employer](P hysical Therapy Clinic) [employer](Umesh caldwell [facility] Team C) OUTPATIENT [id number] PARISH Mark 01/20 Released w/o Limitations [employer](Maximiliano steele [facility] Team C) [employer](Phy sical Therapy Clinic) OUTPATIENT [id number] ZACK VARNER 01/23 Released w/o Limitations [employer](P hysical Therapy Clinic) [employer](Phy sical Therapy Clinic) OUTPATIENT [id number] ZACK VARNER 01/25 Released w/o Limitations [employer](P hysical Therapy Clinic) [employer](Umesh caldwell [facility] Team D) TELE CONSULT [id number] Notes Entered by: Rachid ANGUIANO 31 Jan 2012 0931 ------- ------- ------- ------- -- Medical in-proc EMMETT Carlson 01/30 Referred for Appointment [employer](Maximiliano steele [facility] Team D) [employer](Phy sical Therapy Clinic) OUTPATIENT [id number] DARRYL RUSSO 02/23 Released w/o Limitations [employer](P hysical Therapy Clinic) [employer](Michaeljoselin caldwell [facility] Team A) TELE CONSULT [id number] Notes Entered by: KARAN PEÑA SA 03 Mar 2012 1007 ------- ------- ------- ------- -- Med Refill CHE PEÑA 03/03 Other Not Elsewhere Classified [employer](Maximiliano mccannmigreyson [facility] Team A) [employer](Phy sical Therapy Clinic) OUTPATIENT [id number] DARRYL RUSSO 03/23 Released w/o Limitations [employer](P hysical Therapy Clinic) [employer]([facility] Medicine Clinic) OUTPATIENT [id number] Needs med renewal :CHRISTEN Choi 03/28 Released w/o Limitations [employer](F light Medicin e Clinic) [employer]([facility] Medicine [facility]) OUTPATIENT [id number] Fungal infect BILLY WICK 05/01 Released w/o Limitations [facility](F light Medicin e Clinic) [facility] Medicine [facility]) OUTPATIENT [id number] Notes Entered by: SOL HOLBROOK 08 May 2012 1404 ------- ------- ------- ------- -- [facility] RONNY Patel 05/08 Released w/o Limitations [employer](F light Medicin e Clinic) [employer]([facility] Medicine [facility]) OUTPATIENT [id number] BACK PAIN (ON GOING) RONNY SALDANA 05/16 Released w/o Limitations [employer](F light Medicin e Clinic) [employer]([facility] Medicine [facility]) OUTPATIENT [id number] (ongoin g) back pain FILESBILLY 05/23 Released with Work/Duty Limitations [employer](F light Medicin e Clinic) [facility] Medicine [facility]) OUTPATIENT [id number] Tramado l refill FILES, BILLY S 07/18 Released w/o Limitations [employer]( light Medicin e [facility]) [employer]([facility]) OUTPATIENT [id number] wrist pain VALE VALDIVIA 08/04 Released w/o Limitations [employer]( light Medicin e [facility]) [employer]([facility]) OUTPATIENT [id number] R wrist and lab f/u RONNY SALDANA 08/14 Released w/o Limitations [employer]( light Medicin e [facility]) [facility]) OUTPATIENT [id number] Notes Entered by: Rachid RUBIO 16 Aug 2012 1300 ------- ------- ------- ------- -- f/up RONNY SALDANA 08/16 Released w/o Limitations [facility]( light Medicin e [facility]) [facility]) OUTPATIENT [id number] pelvic pain FILES, BILLY S 08/21 Released w/o Limitations [facility]( light Medicin e [facility]) [facility](Uro logy CL EG) OUTPATIENT [id number] [place] [address]Dar[place]us/ 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 PAULA GARCIA FOR COMPETI TION IN October S TO DARRYL MCCALLUM 09/07 Released w/o Limitations [employer](U rology CL EG) [facility](Tyn paulette [facility] Team B) OUTPATIENT [id number] Notes Entered by: Rachid CORTES 21 Sep 2012 1137 ------- ------- ------- ------- -- Renuka perez for AGR duty CAMELIA CORTES 09/21 Released w/o Limitations [employer](Maximiliano steele [facility] Team B) [employer]([facility] Medicine [facility]) OUTPATIENT [id number] PHA at 0730/DH A 5 at 0800 RINA ELLIOTT 09/25 Released w/o Limitations [facility]( light Medicin e [facility]) [employer]([facility]) OUTPATIENT [id number] Notes Entered by: IBRAHIMA MCCULLOUGH I 01 Nov 2012 0745 ------- ------- ------- ------- -- stomach pain STONERALBIN 11/01 Sick at Home/Quarter s [employer]( light Medicin e [facility]) [employer]([facility]) OUTPATIENT [id number] Prescri ption refill FILES, BILLY Ezio 11/06 Released w/o Limitations [facility] Medic[facility]) [facility]) OUTPATIENT [id number] separat ion physica l FILES, BILLY S 11/13 Released w/o Limitations [facility] TELE CONSULT [id number] Notes Entered by: Azalea WICK 17 Nov 2012 1441 ------- ------- ------- ------- -- MRI results FILES, BILLY Holguin 11/17 [employer]([facility] ent) [facility]) OUTPATIENT [id number] bump on side FILES, BILLY Holguin 12/07 Released w/o Limitations [facility]( light Medicin e [facility]) [facility] Outpatient Encounter [id number] Diagnos is: ICD-10- CM Z77.29 Contact with and exposur e to other hazardo us substan ekya<br/ > Pilar HAZEL 04/29 [facility] [place] [facility] Outpatient Encounter [id number] 12/15 [facility] [place] [facility] En[facility] [id number] 01/18 [facility] En[facility] [id number] 01/19 [facility] En[facility] [id number] 02/05 [facility] En[facility] [id number] 1.02/05 [facility] En[facility] [id number] 02/21 [facility] [place] O/P EST MOD 30 MIN [id number] Diagnos is: ICD-10- CM M54.50 Low back pain, unspeci fied
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
NAHOMI FRIED 05/01 [facility] XIHAE OFFICE O/P EST MOD 30 MIN [id number] 1BY. Diagnos is: ICD-10- CM M54.50 Low back pain, unspeci fied
PAWAN FARRELL Joselin 05[facility] Outpatient Encounter [id number] 1.06/14 [facility] Outpatient Encounter [id number] 1.06/14 [facility]OP EST NOVEMBER X REQ PHY/QHP [id number] 1BY. 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
NAHOMI FRIED 06/18 [facility] Procedures Combined list of: 1) Procedures from Department of Veterans Affairs facilities going back up to thelast 18 months, not all VA non-surgical procedures are included; 2) All procedures from the Department of Defense facilities. Procedure Procedure Type Code Date Perfomer Comments [facility] PHYSICAL THERAPY RE-EVALUATION 012 DoD PHYSICAL THERAPY RE-EVALUATION 012 DoD APPLICATION OF A MODALITY TO 1 OR MORE AREAS; HOT OR COLD PACKS 012 DoD THERAPEUTIC PROCEDURE, 1 OR MORE AREAS, EACH 15 MINUTES; THERAPEUTIC EXERCISES TO DEVELOP STRENGTH AND ENDURANCE, RANGE OF MOTION AND FLEXIBILITY 012 DoD APPLICATION OF A MODALITY TO 1 OR MORE AREAS; HOT OR COLD PACKS 012 DoD APPLICATION OF A MODALITY TO 1 OR MORE AREAS; HOT OR COLD PACKS 012 DoD APPLICATION OF A MODALITY TO 1 OR MORE AREAS; HOT OR COLD PACKS 012 DoD APPLICATION OF A MODALITY TO 1 OR MORE AREAS; HOT OR COLD PACKS [facility] APPLICATION OF A MODALITY TO 1 OR MORE AREAS; HOT OR COLD PACKS [facility] APPLICATION OF A MODALITY TO 1 OR MORE AREAS; HOT OR COLD PACKS [facility] APPLICATION OF A MODALITY TO 1 OR MORE AREAS; HOT OR COLD PACKS [facility] APPLICATION OF A MODALITY TO 1 OR MORE AREAS; HOT OR COLD PACKS [facility] PSYCHIATRIC DIAGNOSTIC INTERVIEW EXAMINATION [facility] THERAPEUTIC, PROPHYLACTIC, OR DIAGNOSTIC INJECTION (SPECIFY SUBSTANCE OR DRUG); SUBCUTANEOUS OR INTRAMUSCULAR [facility] THERAPEUTIC PROCEDURE, 1 OR MORE AREAS, EACH 15 MINUTES; THERAPEUTIC EXERCISES TO DEVELOP STRENGTH AND ENDURANCE, RANGE OF MOTION AND FLEXIBILITY [facility] THERAPEUTIC PROCEDURE, 1 OR MORE AREAS, EACH 15 MINUTES; THERAPEUTIC EXERCISES TO DEVELOP STRENGTH AND ENDURANCE, RANGE OF MOTION AND FLEXIBILITY [facility] PHYSICAL THERAPY RE-EVALUATION [facility] THERAPEUTIC PROCEDURE, 1 OR MORE AREAS, EACH 15 MINUTES; THERAPEUTIC EXERCISES TO DEVELOP STRENGTH AND ENDURANCE, RANGE OF MOTION AND FLEXIBILITY [facility] THERAPEUTIC PROCEDURE, 1 OR MORE AREAS, EACH 15 MINUTES; THERAPEUTIC EXERCISES TO DEVELOP STRENGTH AND ENDURANCE, RANGE OF MOTION AND FLEXIBILITY [facility] THERAPEUTIC PROCEDURE, 1 OR MORE AREAS, EACH 15 MINUTES; THERAPEUTIC EXERCISES TO DEVELOP STRENGTH AND ENDURANCE, RANGE OF MOTION AND FLEXIBILITY [facility] THERAPEUTIC PROCEDURE, 1 OR MORE AREAS, EACH 15 MINUTES; THERAPEUTIC EXERCISES TO DEVELOP STRENGTH AND ENDURANCE, RANGE OF MOTION AND FLEXIBILITY [facility] THERAPEUTIC PROCEDURE, 1 OR MORE AREAS, EACH 15 MINUTES; THERAPEUTIC EXERCISES TO DEVELOP STRENGTH AND ENDURANCE, RANGE OF MOTION AND FLEXIBILITY [facility] THERAPEUTIC PROCEDURE, 1 OR MORE AREAS, EACH 15 MINUTES; THERAPEUTIC EXERCISES TO DEVELOP STRENGTH AND ENDURANCE, RANGE OF MOTION AND FLEXIBILITY DoD THERAPEUTIC PROCEDURE, 1 OR MORE AREAS, EACH 15 MINUTES; THERAPEUTIC EXERCISES TO DEVELOP STRENGTH AND ENDURANCE, RANGE OF MOTION AND FLEXIBILITY [facility] THERAPEUTIC PROCEDURE, 1 OR MORE AREAS, EACH 15 MINUTES; THERAPEUTIC EXERCISES TO DEVELOP STRENGTH AND ENDURANCE, RANGE OF MOTION AND FLEXIBILITY DoD THERAPEUTIC PROCEDURE, 1 OR MORE AREAS, EACH 15 MINUTES; THERAPEUTIC EXERCISES TO DEVELOP STRENGTH AND ENDURANCE, RANGE OF MOTION AND FLEXIBILITY [facility] THERAPEUTIC PROCEDURE, 1 OR MORE AREAS, EACH 15 MINUTES; THERAPEUTIC EXERCISES TO DEVELOP STRENGTH AND ENDURANCE, RANGE OF MOTION AND FLEXIBILITY [facility] THERAPEUTIC PROCEDURE, 1 OR MORE AREAS, EACH 15 MINUTES; THERAPEUTIC EXERCISES TO DEVELOP STRENGTH AND ENDURANCE, RANGE OF MOTION AND FLEXIBILITY [facility] THERAPEUTIC PROCEDURE, 1 OR MORE AREAS, EACH 15 MINUTES; THERAPEUTIC EXERCISES TO DEVELOP STRENGTH AND ENDURANCE, RANGE OF MOTION AND FLEXIBILITY [facility] THERAPEUTIC PROCEDURE, 1 OR MORE AREAS, EACH 15 MINUTES; THERAPEUTIC EXERCISES TO DEVELOP STRENGTH AND ENDURANCE, RANGE OF MOTION AND FLEXIBILITY [facility] THERAPEUTIC PROCEDURE, 1 OR MORE AREAS, EACH 15 MINUTES; THERAPEUTIC EXERCISES TO DEVELOP STRENGTH AND ENDURANCE, RANGE OF MOTION AND FLEXIBILITY [facility] SELF-CARE/HOME MANAGMENT TRAIN (EG,ACT OF DAILY LIVING (ADL) &COMPENSAT TRAIN,MEAL PREPARATION,SAFETY PROCS,AND INSTRUCT IN USE OF ASST TECHNOLOGY DEV/ADPT EQUIP) DIR ONE-ON-ONE CONT,EA 15 MINUTES [facility] UNLISTED SPECIAL SERVICE, PROCEDURE OR REPORT [facility] SHOULDER SLING OR VEST DESIGN, ABDUCTION RESTRAINER, WITH OR WITHOUT SWATHE CONTROL, PREFABRICATED, INCLUDES FITTING AND ADJUSTMENT [facility] EXCISION OF NAIL AND NAIL MATRIX, PARTIAL OR COMPLETE (EG, INGROWN OR DEFORMED NAIL), FOR PERMANENT REMOVAL [facility] NEUROPSYCHOLOGICAL TESTING (EG, [place] CARD SORTING TEST), ADMINISTERED BY A COMPUTER, WITH QUALIFIED HEALTH PICKED EDGE SEWING MACHINE OPERATOR INTERPRETATION AND REPORT 010 [facility] Physical Therapy Service Re-Evaluation Physical Therapy Service Re-Evaluation [id number] DARRYL RUSSO No treatment today, progressed to self care program at this time [facility] Physical Therapy Service Re-Evaluation Physical Therapy Service Re-Evaluation [id number] DARRYL RUSSO No treatment today, progressed to gym program, will follow up in 4 weeks [facility] Physical Therapy: ___ Se ion Segments, 15 Minutes Each Physical Therapy: ___ Session Segments, 15 Minutes Each [id number] ZACK VARNER Pt performed exercise x 45min to include: UBE x 5min, shrugs, carbon capture power plant operator rows 3x10, cable column ER/Extension/ sidelying ER prone shoulder and 3x10 ea, pour fly press w/rotation 3x10 ea, chest press incline pec fly 3x10 ea, fly push ups 30x, supine tri ext 3x10 rear delt 3x10 DoD Modalities Cryotherapy Cold Packs Modalities Cryotherapy Cold Packs [id number] ZACK VARNER Cold pack to shoulder x 1-10min after exercise. DoD Modalities Cryotherapy Cold Packs Modalities Cryotherapy Cold Packs [id number] 012 ZACK VARNER Cold pack to shoulder x 1-10min after exercise. DoD Physical Therapy: ___ Se ion Segments, 15 Minutes Each Physical Therapy: ___ Session Segments, 15 Minutes Each 012 ZACK VARNER Pt performed exercise x 45min to include: UBE x 5min, shrugs, carbon capture power plant operator rows 3x10, cable column ER/Extension/ sidelying ER prone shoulder and 3x10 ea, pour fly press w/rotation 3x10 ea, chest press incline pec fly 3x10 ea, fly push ups 30x, supine tri ext 3x10 rear delt 3x10 DoD Modalities Cryotherapy Cold Packs Modalities Cryotherapy Cold Packs [id number] 012 ZACK VARNER Cold pack to shoulder x 1-10min after exercise. DoD Physical Therapy: ___ Se ion Segments, 15 Minutes Each Physical Therapy: ___ Session Segments, 15 Minutes Each 012 ZACK VARNER Pt performed exercise x 45min to include: UBE x 5min, shrugs, carbon capture power plant operator rows 3x10, cable column ER/Extension/ sidelying ER prone shoulder and 3x10 ea, pour fly press w/rotation 3x10 ea, chest press incline pec fly 3x10 ea, fly push ups 30x, supine tri ext 3x10 rear delt 3x10 DoD Modalities Cryotherapy Cold Packs Modalities Cryotherapy Cold Packs [id number] 012 DARRYL RUSSO 10 minutes to left shoulder after exercises DoD Physical Therapy: ___ Se ion Segments, 15 Minutes Each Physical Therapy: ___ Session Segments, 15 Minutes Each [id number] 012 DARRYL RUSSO 45 minutes of strengthening for the shoulder DoD Physical Therapy Service Re-Evaluation Physical Therapy Service Re-Evaluation [id number] KARAN, DARRYL D DoD Modalities Cryotherapy Cold Packs Modalities Cryotherapy Cold Packs 84079 012 ZACK VARNER Cold pack to shoulder x 1-10min after exercise. DoD Physical Therapy: ___ Se ion Segments, 15 Minutes Each Physical Therapy: ___ Session Segments, 15 Minutes Each 012 ZACK VARNER Exercises per POC x 40 minutes to include: UBE 5 minutes, wall slides flexion and abduction 10 sec x 10 reps, shrugs 30# 3 x 10 reps, carbon capture power plant operator rows 20# 3 x 10 reps, ER stretch with cane 10 sec holds x 10 reps, cable column shoulder ER 10# and extension 20# 3 x 10 reps each, SL ER 7# 3 x 10 reps, prone shoulder abduction 6# 3 x 10 reps, rear deltoid on incline bench 6# 3 x 10 reps, triceps extension with palm down 6# 3 x 10 reps, push ups on floor x 30 reps, and IR belt stretch 10 sec holds x 10 reps. DoD Modalities Cryotherapy Cold Packs Modalities Cryotherapy Cold Packs [id number] 012 CYNTHIA MRECADO CP to shoulder after exercises x 10 minutes DoD Physical Therapy: ___ Se ion Segments, 15 Minutes Each Physical Therapy: ___ Session Segments, 15 Minutes Each 012 JESSCYNTHIA SEARS Exercises per POC x 40 minutes to include: UBE 5 minutes, wall slides flexion and abduction 10 sec x 10 reps, shrugs 25# 3 x 10 reps, carbon capture power plant operator rows 20# 3 x 10 reps, ER stretch with cane 10 sec holds x 10 reps, cable column shoulder ER 10# and extension 20# 3 x 10 reps each, SL ER 6# 3 x 10 reps, prone shoulder abduction 5# 3 x 10 reps, rear deltoid on incline bench 6# 3 x 10 reps, triceps extension with palm down 6# 3 x 10 reps, push ups on floor x 30 reps, and IR belt stretch 10 sec holds x 10 reps. DoD Modalities Cryotherapy Cold Packs Modalities Cryotherapy Cold Packs 13317 012 ZACK VARNER Cold pack to shoulder x 1-10min after exercise. DoD Physical Therapy: ___ Se ion Segments, 15 Minutes Each Physical Therapy: ___ Session Segments, 15 Minutes Each [id number] 012 ZACK VARNER Exercises per POC x 40 minutes to include: UBE 5 minutes, wall slides flexion and abduction 10 sec x 10 reps, shrugs 25# 3 x 10 reps, carbon capture power plant operator rows 20# 3 x 10 reps, ER stretch with cane 10 sec holds x 10 reps, cable column shoulder ER 10# and extension 20# 3 x 10 reps each, SL ER 6# 3 x 10 reps, prone shoulder abduction 5# 3 x 10 reps, rear deltoid on incline bench 6# 3 x 10 reps, triceps extension with palm down 6# 3 x 10 reps, push up progression low mat about 2' from ground x 30 reps, and IR belt stretch 10 sec holds x 10 reps. DoD Modalities Cryotherapy Cold Packs Modalities Cryotherapy Cold Packs 56213 012 CIRILO MERCADOISSA CP to shoulder after exercises x 10 minutes DoD Physical Therapy: ___ Se ion Segments, 15 Minutes Each Physical Therapy: ___ Session Segments, 15 Minutes Each [id number] 012 JESS, CYNTHIA Exercises per POC x 40 minutes to include: UBE 5 minutes, wall slides flexion and abduction 10 sec x 10 reps, shrugs 20# 3 x 10 reps, carbon capture power plant operator rows 15# 3 x 10 reps, ER stretch with cane 10 sec holds x 10 reps, cable column shoulder ER 10# and extension 15# 3 x 10 reps each, SL ER 5# 3 x 10 reps, prone shoulder abduction 3# 3 x 10 reps, rear deltoid on incline bench 5# 3 x 10 reps, triceps extension with palm down 5# 3 x 10 reps, push up progression low mat about 3' from ground x 30 reps, and IR belt stretch 10 sec holds x 10 reps. DoD Physical Therapy: ___ Se ion Segments, 15 Minutes Each Physical Therapy: ___ Session Segments, 15 Minutes Each [id number] 012 JESS, CYNTHIA Exercises per POC x 40 minutes to include: UBE 5 minutes, wall slides flexion and abduction 10 sec x 10 reps, shrugs 10# 3 x 10 reps, carbon capture power plant operator rows 10# 3 x 10 reps, ER stretch with cane 10 sec holds x 10 reps, cable column shoulder ER and extension 53 3 x 10 reps each, SL ER 3# 3 x 10 reps, prone shoulder abduction 1# 3 x 10 reps, rear deltoid on incline bench 4# 3 x 10 reps, push up progression low mat x 30 reps, and IR belt stretch 10 sec holds x 10 reps. DoD Modalities Cryotherapy Cold Packs Modalities Cryotherapy Cold Packs 38990 012 CYNTHIA MERCADO DoD Modalities Cryotherapy Cold Packs Modalities Cryotherapy Cold Packs 62931 012 DARRYL RUSSO 10 minutes to the left shoulder after exercises DoD Physical Therapy: ___ Se ion Segments, 15 Minutes Each Physical Therapy: ___ Session Segments, 15 Minutes Each [id number] 012 DARRYL RUSSO 45 minutes of stretching and strengthening for the shoulder [facility] Physical Therapy Service Evaluation Physical Therapy Service Evaluation 76010 012 DARRYL RUSSO A isted Exercises [place] ROM [place] [address]4925 012 SHANELLE MCKINLEY isted Exercises [place] 85681 012 LULI AWAN [facility] Physical Therapy Service Re-Evaluation Physical Therapy Service Re-Evaluation 46407 012 ANUEL LING A isted Ex[place] [address] 012 LULI AWAN A isted Ex[place] 98454 012 LULI AWAN A isted Ex[place] 41253 012 LULI AWAN A isted Exercises [place] [address] 012 LULI AWAN A isted Ex[place] [address] 012 LULI AWAN A isted Ex[place] [address] 012 SHANELLE MCKINLEY A isted [place] [address] 012 SHANELLE MCKINLEY A isted Ex[place] [address] 012 SHANELLE MCKINLEY [facility] A isted Ex[place] [address] 012 SHANELLE MCKINLEY A isted Ex[place] [address] 012 SHANELLE MCKINLEY A isted [place] [address] 012 SHANELLE MCKINLEY A isted Exercises [place] 11673 012 SHANELLE MCKINLEY A isted Exercises [place] [address] 012 SHANELLE MCKINLEY [facility] Phys Therapy Education Self Care Training - Per 15 Minutes Phys Therapy Education Self Care Training - Per 15 Minutes 84568 ANUEL LING [facility] Physical Therapy Service Evaluation Physical Therapy Service Evaluation [id number] ANUEL LING [facility] Shoulder sling or vest design, abduction restrainer, with or without swathe control, prefabricated, includes fitting and adjustment LIZA MARSH Applied (M) shoulder immobilizer sling with swathe to Rt shoulder @ 2042L. [facility] Part Permanent Excis Nail, Matrix R First Toe Medial Border Part Permanent Excis Nail, Matrix R First Toe Medial Border [id number] was primary provider, Capt Sánchez was 1st assist [facility] Psychometric Neuropsych Testing Battery Admin By Computer Psychometric Neuropsych Testing Battery Admin By Computer [id number] GERMAN LUKE [facility] Psychiatric Diagnostic Evaluation Comprehensive Examination Psychiatric Diagnostic Evaluation Comprehensive Examination [id number] 010 MEHDI MAHONEY [facility] Social History Combined list of available smoking, tobacco, and other social history from Department of Defense and Veterans Affairs facilities. Social History Type Response Date Comment [facility] e Tobacco smoking status [facility] NEVER USED 02/22/20 24 [place] This section is an empty soc ial history section. [facility] Plan of Care List of future care activities from Department of Veterans Affairs facilities. Additional future care activities may be listed in the Assessment and Plan section. Date/Time Care Activity Care Activity Detail Facili ty 06/20/2024 AMBULATORY - NONE AMBULATORY - NONE [facility] [place] [facility] 07/18/2024 AMBULATORY - REHAB MEDICINE AMBULATORY - REHAB MEDICINE [place] 07/26/2024 AMBULATORY - MEDICINE AMBULATORY - MEDICI [place] 05/08/2024 Consult Order HOME SLEEP STUDY NOX/SPOPC OUTPT Cons Lead Atg Developer's Choice [place] 05/16/2024 Laboratory - Knife Machine Operator ry Order TESTOSTERONE-FREE (qu) BLOOD (RED-PLAIN) [facility] 05/16/2024 Laboratory - Knife Machine Operator ry Order TESTOSTERONE, TOTAL (WHV) BLOOD (SST-GOLD) [facility] 05/23/2024 Laboratory - Knife Machine Operator ry Order TSH BLOOD (SST-SERUM) [facility] 05/23/2024 Laboratory - Knife Machine Operator ry Order TESTOSTERONE, TOTAL (WHV) BLOOD (SST-GOLD) [facility] 05/23/2024 Laboratory - Knife Machine Operator ry Order TESTOSTERONE-FREE (qu) BLOOD (RED-PLAIN) [facility] 05/23/2024 Laboratory - Knife Machine Operator ry Order FSH BLOOD (RED-PLAIN) [facility] 05/23/2024 Laboratory - Knife Machine Operator ry Order LH BLOOD (SST-SERUM) [facility] 06/14/2024 Consult Order COMMUNITY CARE-B H PSYCHOTHERAPY Cons Lead Atg Developer's [facility]
--- OUTSIDE RECORDS SUMMARY | 2024-06-21 00:03 | XMS_ITS ---
Author Name [facility] [place] Organization [facility] [place] Address [address] [place] [id number] Care Team Providers Care Supervising Appraiser Name Role Phone ALBIN FARRELL Primary Care Provider Unavailabl e Selected Encounter This section includes the information on record at [place] for the Encounter. Date/Time Encounter Type Encounter Description Reason Pro vider Source Jan 19, 2024 02:00 PM Outpatient Encounter TELEPHONE PRIMARY CARE I[facility] Encounter Template Text not used by [place] Plan of Treatment: Future Appointments (+ 6 months) and Future Tests (+/- 45 days) The Plan of Treatment section includes future care activities for the patient from all [place] treatmentfacilities. This section includes future appointments and future orders which are active, pending or scheduled. Future Appointments This section includes appointments that were scheduled to occur 6 months from the date of the Encounter, up to a maximum of 20 appointments. The data comes from all [place] treatment facilities. Appointment Date/Time Appointment Type Appointme nt Facility Name Feb 22, 2024 11:00 AM AMBULATORY [facility] May 01, 2024 08:30 [facility] May 08, 2024 10:30 AM [facility]IC[facility] Jun 14, 2024 10:30 AM AMBULATORY - PSYCHIATRY [facility] Jun 18, 2024 02:30 PM AMBULATORY - REHAB MEDICIN E [place] Jun 20, 2024 10:00 AM AMBULATORY - NONE [facility] Jul 18, 2024 07:30 AM AMBULATORY - REHAB [facility] Active, Pending, and Scheduled Orders This section includes a listing of several types of active, pending, and scheduled orders, including clinic medications orders, diagnostic test orders, procedure orders and consult orders; where the start date of the order is 45 days before the date of the Encounter or 45 days after the date of theEncounter. The data comes from all [place] treatment facilities. Test Date/Time Test Type Test Details Facility Name Feb 22, 2024 11:53 AM Consult Order COMMUNITY CARE-COLONOSCOPY DIAGNOSTIC Cons Restaurant Cashier's Choice [place] Encounter Notes: All associated encounter notes This section contains the clinical notes associated to the Encounter. Date/Time Encounter Note(s) Provider Source Jan 19, 2024 02:00 PM PREVENTIVE MEDICINE NURSING NOTE: LOCAL TITLE: CLINICAL REMINDERS/NURSING STANDARD TITLE: PREVENTIVE MEDICINE NURSING NOTE DATE OF NOTE: JAN 19, 2024@14:00 ENTRY DATE: JAN 19, 2024@14:00:35 AUTHOR: LEEROY ARNETT EXP COSIGNER: URGENCY: STATUS: COMPLETED Advance Directive Screen MH AD: Patient does not have an Advance Directive completed and is requesting more information. The patient received education about Advance Directives and written notification of his/her rights. Vet was sent an advanced directive and was asked to fill out and bring in for PCP appt Td / Tdap Immunization: Td/Tdap given previously - written records available The patient has previously received the Tetanus, Diphtheria, Pertussis vaccine (Tdap). Documented: TDAP Historical Date Administered: Jun 13, 2009 Lot: [id number] Exp Date: Unknown Outside Location: Outside Healthcare Provider Information Source: FROM OTHER REGISTRY Comment: tetanus toxoid, reduced diphtheria toxoid, and acellular pertussis vaccine, adsorbed Documented: VACCINIA (SMALLPOX) Historical Date Administered: Mar 23, 2010 Series: Series 1 Lot: [id number] Exp Date: Unknown Outside Location: Outside Healthcare Provider Information Source: FROM OTHER REGISTRY Comment: vaccinia (smallpox) vaccine Documented: TYPHOID, VICPS Historical Date Administered: Oct 02, 2009 Series: Series 1 Head Of Cytogenetics: SANOFI PASTEUR Lot: [id number] Exp Date: Unknown Outside Location: Outside Healthcare Provider Information Source: FROM OTHER REGISTRY Comment: typhoid Vi capsular polysaccharide vaccine Documented: POLIO, UNSPECIFIED FORMULATION Historical Date Administered: Jun 13, 2009 Series: Series 1 Head Of Cytogenetics: SANOFI PASTEUR Lot: [id number] Exp Date: Unknown Outside Location: Outside Healthcare Provider Information Source: FROM OTHER REGISTRY Comment: poliovirus vaccine, inactivated Documented: MENINGOCOCCAL MCV4P Historical Date Administered: Jun 13, 2009 Series: Series 1 Head Of Cytogenetics: SANOFI PASTEUR Lot: [id number] Exp Date: Unknown Outside Location: Outside Healthcare Provider Information Source: FROM OTHER REGISTRY Comment: meningococcal polysaccharide (groups A, C, Y and W-135) diphtheria toxoid conjugate vaccine (MCV4P) Documented: HEP A, ADULT Historical Date Administered: Jun 19, 2009 Series: Series 1 Lot: [id number] Exp Date: Unknown Outside Location: Outside Healthcare Provider Information Source: FROM OTHER REGISTRY Comment: hepatitis A vaccine, pediatric dosage, unspecified formulation Documented: HEP A, ADULT Historical Date Administered: Jan 26, 2010 Series: Series 2 Lot: [id number] Exp Date: Unknown Outside Location: Outside Healthcare Provider Information Source: FROM OTHER REGISTRY Comment: hepatitis A vaccine, adult dosage Documented: ANTHRAX VACCINE, UNSPECIFIED Historical Date Administered: Mar 20, 2010 Series: Series 1 Lot: [id number] Exp Date: Unknown Outside Location: Outside Healthcare Provider Information Source: FROM OTHER REGISTRY Documented: ANTHRAX VACCINE, UNSPECIFIED Historical Date Administered: May 17, 2010 Series: Series 2 Lot: [id number] Exp Date: Unknown Outside Location: Outside Healthcare Provider Information Source: FROM OTHER REGISTRY /orquidea/ LEEROY ARNETT MSN Ed., BSN STONE CARVER NURSE Signed: 03/21/2024 09:10 LEEROY ARNETT CNTRL WSN [facility]
--- OUTSIDE RECORDS SUMMARY | 2024-06-21 00:03 | XMS_ITS ---
Author Name [facility] ([place] Organization Department of [facility] ([place]) Address [address] [place] [address] Care Team Providers Care Gravity Meter Operator Name Role Phone ALBIN FARRELL Primary Care Provider Unavailabl e Selected Encounter This section includes the information on record at [place] for the Encounter. Date/Time Encounter Type Encounter Description Reason Pro vider Source Feb 06, 2024 12:13 PM Outpatient Encounter [facility] IHE Encounter Template Text not used by [place] Plan of Treatment: Future Appointments (+ 6 months) and Future Tests (+/- 45 days) The Plan of Treatment section includes future care activities for the patient from all [place] treatmentfacilities. This section includes future appointments and future orders which are active, pending or scheduled. Future Appointments This section includes appointments that were scheduled to occur 6 months from the date of the Encounter, up to a maximum of 20 appointments. The data comes from all [place] treatment facilities. Appointment Date/Time Appointment Type Appointme nt Facility Name Feb 22, 2024 11:00 [facility] May 01, 2024 08:30 [facility] 08[facility]24 10:30 AM [facility] Jun 14, 2024 10:30 AM AMBULATORY - PSYCHIATRY [facility] Jun 18, 2024 02:30 PM AMBULATORY - REHAB [facility] Jun 20, 2024 10:00 [facility] Jul 18, 2024 07:30 AM AMBULATORY - RE[facility]AB [facility] [place] Jul 26, 2024 10:30 AM [facility] Active, Pending, and Scheduled Orders This section includes a listing of several types of active, pending, and scheduled orders, including clinic medications orders, diagnostic test orders, procedure orders and consult orders; where the start date of the order is 45 days before the date of the Encounter or 45 days after the date of theEncounter. The data comes from all [place] treatment facilities. Test Date/Time Test Type Test Details Facility Name Feb 22, 2024 11:53 AM Consult Order COMMUNITY CARE-COLONOSCOPY DIAGNOSTIC Cons Line Service Attendant's Choice [place] Encounter Notes: All associated encounter notes This section contains the clinical notes associated to the Encounter. Date/Time Encounter Note(s) Provider Source Feb 06, 2024 02:08 PM ADDENDUM: LOCAL TITLE: Addendum STANDARD TITLE: ADDENDUM DATE OF NOTE: FEB 06, 2024@14:08:58 ENTRY DATE: FEB 06, 2024@14:08:59 AUTHOR: DAVIAN LÓPEZIGNER: URGENCY: STATUS: COMPLETED In the absence of our Environmental Engineering Manager, I am alerting Walk-in Clinic and Nursing staff to this patient request for care, so that his needs can be triaged and consults can be entered as appropriate. /orquidea/ Davian López PsyD Psychology Equine Dentist, Outpatient Signed: 02/06/2024 14:10 Receipt Acknowledged By: 02/08/2024 09:25 /es/ NATALIIA GIL LCSW CLINICAL NUCLEAR FUEL PROCESSING TECHNICIAN 02/06/2024 14:35 /orquidea/ Naima Altamirano Equipment Operator [employer], Inpatient & Walk-In 02/07/2024 14:41 /orquidea/ YUAN VARNER MSN, RN MENTAL [facility] CLINIC REGISTERED NURSE === --- Original Document --- 02/06/24 ADMINISTRATIVE NOTE: MELANY spoke with who was speaking with a [place] employee who brought the Ewen to . MELANY advised the protocols that he'd follow for MH services regarding setting up a consult for regular visits. Ewen indicated that he didn't need to be seen today, he was just checking out what was needed for MH services. /orquidea/ NOELLE HOUSER ADVANCED WAD IMPREGNATOR Signed: 02/06/2024 12:17 Receipt Acknowledged By: 02/06/2024 14:11 /orquidea/ Davian López PsyD Psychology Equine Dentist, Outpatient AUDREYDAVIAN [facility] Feb 06, 2024 12:13 PM ADMINISTRATIVE NOTE: LOCAL TITLE: ADMINISTRATIVE NOTE STANDARD TITLE: ADMINISTRATIVE NOTE DATE OF NOTE: FEB 06, 2024@12:13 ENTRY DATE: FEB 06, 2024@12:13:33 AUTHOR: NOELLE HOUSER COSIGNER: URGENCY: STATUS: COMPLETED ADMINISTRATIVE NOTE Has ADDENDA MELANY spoke with Ewen who was speaking with a [facility] employee who brought the Ewen to . MELANY advised the protocols that he'd follow for MH services regarding setting up a consult for regular visits. Ewen indicated that he didn't need to be seen today, he was just checking out what was needed for MH services. /orquidea/ NOELLE HOUSER ADVANCED WAD IMPREGNATOR Signed: 02/06/2024 12:17 Receipt Acknowledged By: 02/06/2024 14:11 /orquidea/ Davian López PsyD Psychology Equine Dentist, Outpatient 02/06/2024 ADDENDUM STATUS: COMPLETED In the absence of our Environmental Engineering Manager, I am alerting Walk-in Clinic and Nursing staff to this patient request for MH care, so that his needs can be triaged and consults can be entered as appropriate. /orquidea/ Davian López PsyD Psychology Equine Dentist, Outpatient Signed: 02/06/2024 14:10 Receipt Acknowledged By: * AWAITING SIGNATURE * NATALIIA GIL * AWAITING SIGNATURE * NAIMA ALTAMIRANO * AWAITING SIGNATURE * YUAN VARNER DEANNE EVELYN [facility]
--- OUTSIDE RECORDS SUMMARY | 2024-06-21 00:03 | XMS_ITS ---
Author Name [facility] [place] Organization [facility] [place] Address [address] [place] [address] Care Team Providers Care Electronic Integrated Systems Mechanic Name Role Phone ALBIN FARRELL Primary Care Provider Unavailabl e Selected Encounter This section includes the information on record at [place] for the Encounter. Date/Time Encounter Type Encounter Description Reason Pro vider Source Feb 06, 2024 11:59 AM Outpatient Encounter PRIMARY CARE/MEDICINE IHE Encounter Template Text not used by [place] Plan of Treatment: Future Appointments (+ 6 months) and Future Tests (+/- 45 days) The Plan of Treatment section includes future care activities for the patient from all [place] treatmentfacilities. This section includes future appointments and future orders which are active, pending or scheduled. Future Appointments This section includes appointments that were scheduled to occur 6 months from the date of the Encounter, up to a maximum of 20 appointments. The data comes from all [place] treatment facilities. Appointment Date/Time Appointment Type Appointme nt Facility Name Feb 22, 2024 11:00 AM [facility] May 01, 2024 08:30 AM AMB[facility]ATORY - REHAB [facility] May 08, 2024 10:30 AM [facility] - MEDICINE [facility] Jun 14, 2024 10:30 AM AMBULATORY - PSYCHIATRY [facility] Jun 18, 2024 02:30 PM AMBULATORY - REHAB [facility] Jun 20, 2024 10:00 AM AMBULATORY - NONE [facility] Jul 18, 2024 07:30 AM [facility]ORY - [facility] Jul 26, 2024 10:30 AM [facility]ORY - MEDICINE [facility] Active, Pending, and Scheduled Orders This section includes a listing of several types of active, pending, and scheduled orders, including clinic medications orders, diagnostic test orders, procedure orders and consult orders; where the start date of the order is 45 days before the date of the Encounter or 45 days after the date of theEncounter. The data comes from all [place] treatment facilities. Test Date/Time Test Type Test Details Facility Name Feb 22, 2024 11:53 AM Consult Order COMMUNITY CARE-COLONOSCOPY DIAGNOSTIC Cons Plastic Die Maker Apprentice's Choice [facility] Encounter Notes: All associated encounter notes This section contains the clinical notes associated to the Encounter. Date/Time Encounter Note(s) Provider Source Feb 06, 2024 12:01 PM ADDENDUM: LOCAL TITLE: Addendum STANDARD TITLE: ADDENDUM DATE OF NOTE: FEB 06, 2024@12:01:34 ENTRY DATE: FEB 06, 2024@12:01:34 AUTHOR: KATLIN CHOW EXP COSIGNER: URGENCY: STATUS: COMPLETED 60 MNS NEW PT APPT NO OUTSIDE PROVIDER PER PT RTC TO PACT 1 /es/ Katlin Chow ADVANCED TOP LIFT COMPRESSER Signed: 02/06/2024 12:03 Receipt Acknowledged By: 02/07/2024 11:49 /es/ GOSIA GUSMAN LPN LICENSED PRACTICAL NURSE 02/06/2024 20:12 /es/ MARVA KAN ADVANCE TOP LIFT COMPRESSER 02/06/2024 14:10 /es/ GABY CORDOBA LPN LICENSED PRACTICAL NURSE 02/06/2024 13:41 /es/ MILDRED TIJERINA Advanced Fitness And Wellness Coordinator 02/06/2024 14:27 /es/ GUSTAVO NELSON RN REGISTERED NURSE ======== --- Original Document --- 02/06/24 PATIENT LETTER (T): KEITH PASCUAL [address] [place], [place], [address] Dear Ernestine Griffincome to patient aligned care team 1 (PACT 1) with CONNOR NIELSEN. Prior to meeting you at your new patient appointment we are requesting some of your past medical history so that we may provide you with the exceptional care you deserve. Please note that it is very helpful to have these documents at least two days prior to your appointment date as the more information we have the better we will be able to meet your needs: * Last History & Physical * Immunization records * Medication list * Diagnosis list * Most recent labs * Diagnostic screens (Colonoscopy, Abdominal Aortic Aneurysm screen, Mammograms, PAPS, etc.) You may either drop the requested records off in person to [address] [place] [address] or you may have them faxed to: [phone] ATTN: PACT 1 *Also please complete the enclosed new patient packet and drop it off at our [place] location: [address] [place] [address]* If you have any questions please do not hesitate to contact the Department of 's Affairs call center at [phone]. We look forward to providing your health care! 02/06/2024 ADDENDUM STATUS: COMPLETED NOTED - THANK YOU /orquidea/ MARVA KAN ADVANCE TOP LIFT COMPRESSER Signed: 02/06/2024 20:12 KATLIN CHOW [facility] Feb 06, 2024 12:00 PM LETTERS: LOCAL TITLE: PATIENT LETTER (T) STANDARD TITLE: LETTERS DATE OF NOTE: FEB 06, 2024@12:00 ENTRY DATE: FEB 06, 2024@12:00:13 AUTHOR: KATLIN CHOW EXP COSIGNER: URGENCY: STATUS: COMPLETED PATIENT LETTER (T) Has ADDENDA [facility] Toll Free Number Primary Care Telephone Assistance can be reached at extension [phone] [facility] scheduling can be reached at extension [phone] scheduling can be reached at ext [phone] KEITH PASCUAL [address] [place], [place], [address] Dear Natalia Griffin to patient aligned care team 1 (PACT 1) with CONNOR NIELSEN. Prior to meeting you at your new patient appointment we are requesting some of your past medical history so that we may provide you with the exceptional care you deserve. Please note that it is very helpful to have these documents at least two days prior to your appointment date as the more information we have the better we will be able to meet your needs: * Last History & Physical * Immunization records * Medication list * Diagnosis list * Most recent labs * Diagnostic screens (Colonoscopy, Abdominal Aortic Aneurysm screen, Mammograms, PAPS, etc.) You may either drop the requested records off in person to [address] [place] [address] or you may have them faxed to: [phone] ATTN: PACT 1 *Also please complete the enclosed new patient packet and drop it off at our [place] location: [address] [place] [address]* If you have any questions please do not hesitate to contact the [facility] [place] call center at [phone]. We look forward to providing your health care! 02/06/2024 ADDENDUM STATUS: COMPLETED 60 MNS NEW PT APPT NO OUTSIDE PROVIDER PER PT RTC TO PACT 1 /orquidea/ Katlin Chow ADVANCED TOP LIFT COMPRESSER Signed: 02/06/2024 12:03 Receipt Acknowledged By: * AWAITING SIGNATURE * GOSIA GUSMAN 02/06/2024 20:12 /es/ MARVA KAN ADVANCE TOP LIFT COMPRESSER 02/06/2024 14:10 /es/ GABY CORDOBA LPN LICENSED PRACTICAL NURSE 02/06/2024 13:41 /es/ MILDRED TIJERINA Advanced Fitness And Wellness Coordinator 02/06/2024 14:27 /es/ GUSTAVO NELSON RN REGISTERED NURSE 02/06/2024 ADDENDUM STATUS: COMPLETED NOTED - THANK YOU /orquidea/ MARVA KAN ADVANCE TOP LIFT COMPRESSER Signed: 02/06/2024 20:12 Sincerely, Your Primary Care Team [facility] [address] [facility] [address] [place] [address] [place] [address] [phone] [facility] [address] [place] [address] [place] [address] [phone] [facility] [address] [facility] [place] [address] [place] [address] [phone] KATLIN CHOWFIELD
--- OUTSIDE RECORDS SUMMARY | 2024-06-21 00:03 | XMS_ITS ---
Author Name [facility] [place] Organization [facility] [place] Address [address] [place] [address] Care Team Providers Care Marketing Sales Manager Name Role Phone ALBIN FARRELL Primary Care Provider Unavailabl e Selected Encounter This section includes the information on record at [place] for the Encounter. Date/Time Encounter Type Encounter Description Reason Pro vider Source Dec 16, 2023 09:41 AM Outpatient Encounter ADMIN PAT ACTIVTIES (MASNONCT) IHE Encounter Template Text not used by [place] Plan of Treatment: Future Appointments (+ 6 months) and Future Tests (+/- 45 days) The Plan of Treatment section includes future care activities for the patient from all [place] treatmentfacilities. This section includes future appointments and future orders which are active, pending or scheduled. Future Appointments This section includes appointments that were scheduled to occur 6 months from the date of the Encounter, up to a maximum of 20 appointments. The data comes from all [place] treatment facilities. Appointment Date/Time Appointment Type Appointme nt Facility Name Feb 22, 2024 11:00 AM [facility]ATORY - [facility]ICINE [facility] May 01, 2024 08:30 AM AM[facility] - [facility]AB [facility] May 08, 2024 10:30 AM AMB[facility]ATORY - MEDICINE [facility] Jun 14, 2024 10:30 AM AMBULATORY - PSYCHIATRY [facility] Encounter Notes: All associated encounter notes This section contains the clinical notes associated to the Encounter. Date/Time Encounter Note(s) Provider Source Dec 27, 2023 01:15 PM ADDENDUM: LOCAL TITLE: Addendum STANDARD TITLE: ADDENDUM DATE OF NOTE: DEC 27, 2023@13:15:16 ENTRY DATE: DEC 27, 2023@13:15:17 AUTHOR: SHAGGY MCINTYREIGNER: URGENCY: STATUS: COMPLETED RN please call and schedule a 60 min new pt appt in ANY open 60 min slot in any providers clinic, RTC to PACT 1 /orquidea/ SHAGGY MCINTYRE SALESPERSON PETS AND PET SUPPLIES RN INTEGRATED Signed: 12/27/2023 13:15 Receipt Acknowledged By: 01/19/2024 13:59 /es/ LEEROY ARNETT MSN Ed., BSN METAL PICKLING EQUIPMENT OPERATOR NURSE === --- Original Document --- 12/16/23 CCC: SCHEDULING ADMINISTRATION: Patient Demographics Patient Name: KEITH PASCUAL Patient Primary Phone: [phone] Patient Primary [address]: [address] [place] [address] Patient : 1990 Patient Age: 33 Caller/Recipient Relation to Patient: Self Administrative Administrative Note Reason: Other Administrative Note Comments: called to establish pcp in [place] office. please call back /es/ MERCEDES MCCLELLAN Signed: 12/16/2023 09:42 Receipt Acknowledged By: 12/16/2023 09:51 /es/ ALAINA PEACE MSA SALESPERSON PETS AND PET SUPPLIES, [facility] 12/16/2023 12:48 /es/ MARTHA CARBAJAL SALESPERSON PETS AND PET SUPPLIES [facility] 12/27/2023 13:15 /orquidea/ SHAGGY MCINTYRE SALESPERSON PETS AND PET SUPPLIES RN INTEGRATED SHAGGY MCINTYRE [facility] [place] [facility] Dec 16, 2023 09:42 AM ADMINISTRATIVE NOTE: LOCAL TITLE: CCC: SCHEDULING ADMINISTRATION STANDARD TITLE: ADMINISTRATIVE NOTE DATE OF NOTE: DEC 16, 2023@09:42:02 ENTRY DATE: DEC 16, 2023@09:42:02 AUTHOR: KILPATRICK-SABILLION,LA EXP COSIGNER: URGENCY: STATUS: COMPLETED CCC: SCHEDULING ADMINISTRATION Has ADDENDA Patient Demographics Patient Name: KEITH PASCUAL Patient Primary Phone: [phone] Patient Primary Address: [facility] [place] [address] Patient : 1990 Patient Age: 33 Caller/Recipient Relation to Patient: Self Administrative Administrative Note Reason: Other Administrative Note Comments: called to establish pcp in [place] office. please call back /es/ MERCEDES MCCLELLAN Signed: 12/16/2023 09:42 Receipt Acknowledged By: 12/16/2023 09:51 /es/ ALAINA PEACE MSA SALESPERSON PETS AND PET SUPPLIES, [facility] 12/16/2023 12:48 /es/ MARTHA CARBAJAL SALESPERSON PETS AND [facility]PPLIES [facility] 12/27/2023 13:15 /es/ SHAGGY MCINTYRE SALESPERSON PETS AND PET SUPPLIES RN INTEGRATED 12/27/2023 ADDENDUM STATUS: COMPLETED RN please call and schedule a 60 min new pt appt in ANY open 60 min slot in any providers clinic, RTC to PACT 1 /orquidea/ SHAGGY MCINTYRE SALESPERSON PETS AND PET SUPPLIES RN INTEGRATED Signed: 12/27/2023 13:15 Receipt Acknowledged By: * AWAITING SIGNATURE * LEEROY ARNETT LA URA D [place] [facility]
--- OUTSIDE RECORDS SUMMARY | 2024-06-21 00:04 | XMS_ITS | Encounter Summary ---
Author Name [facility] [place] Organization [place] Address [address] [place] [address] Care Team Providers Care Partner Marketing Manager Name Role Phone ALBIN FARRELL Primary Care Provider Unavailabl e Selected Encounter This section includes the information on record at [place] for the Encounter. Date/Time Encounter Type Encounter Description Reason Pro vider Source Jan 20, 2024 12:00 AM Outpatient Encounter EVENT (HISTORICAL) IHE Encounter Template Text not used by CT Plan of Treatment: Future Appointments (+ 6 months) and Future Tests (+/- 45 days) The Plan of Treatment section includes future care activities for the patient from all [place] treatmentfacilities. This section includes future appointments and future orders which are active, pending or scheduled. Future Appointments This section includes appointments that were scheduled to occur 6 months from the date of the Encounter, up to a maximum of 20 appointments. The data comes from all [place] treatment facilities. Appointment Date/Time Appointment Type Appointme nt Facility Name Feb 22, 2024 11:00 AM [facility] May 01, 2024 08:30 AM [facility]AB [facility] May 08, 2024 10:30 AM [facility] Jun 14, 2024 10:30 AM AMBULATORY - PSYCHIATRY [facility] Jun 18, 2024 02:30 PM AMBULATORY - REHAB [facility] Jun 20, 2024 10:00 AM [facility] - NONE [facility] Jul 18, 2024 07:30 AM AMBULATORY - REHAB [facility] Active, Pending, and Scheduled Orders This section includes a listing of several types of active, pending, and scheduled orders, including clinic medications orders, diagnostic test orders, procedure orders and consult orders; where the start date of the order is 45 days before the date of the Encounter or 45 days after the date of theEncounter. The data comes from all [place] treatment facilities. Test Date/Time Test Type Test Details Facility Name Feb 22, 2024 11:53 AM Consult Order COMMUNITY CARE-COLONOSCOPY DIAGNOSTIC Cons Occupational Medicine Officer's Choice [facility] Encounter Notes: All associated encounter notes This section contains the clinical notes associated to the Encounter. Date/Time Encounter Note(s) Provider Source Jan 20, 2024 12:00 AM NONVA NOTE: LOCAL TITLE: NON-VA OUTPATIENT NOTES STANDARD TITLE: NONVA NOTE DATE OF NOTE: JAN 20, 2024 ENTRY DATE: MAR 13, 2024@12:42:02 AUTHOR: LINDSEY SALDANA EXP COSIGNER: URGENCY: STATUS: COMPLETED VistA Imaging - Scanned Document SCANNED DOCUMENT SIGNATURE NOT REQUIRED Electronically Filed: 03/13/2024 by: LINDSEY SALDANA MACHINE TAILER LINDSEY SALDANA [facility]
--- OUTSIDE RECORDS SUMMARY | 2024-06-21 00:04 | XMS_ITS ---
Author Name [facility] Address [address] [place] [id number] Care Team Providers Care Host Coordinator Name Role Phone ALBIN FARRELL Primary Care Provider Unavailabl e Selected Encounter This section includes the information on record at [place] for the Encounter. Date/Time Encounter Type Encounter Description Reason Pro vider Source Apr 20, 2024 07:42 AM Outpatient Encounter ADMIN PAT ACTIVTIES (MASNONCT) [facility] Encounter Template Text not used by [place] Plan of Treatment: Future Appointments (+ 6 months) and Future Tests (+/- 45 days) The Plan of Treatment section includes future care activities for the patient from all [place] treatmentfacilities. This section includes future appointments and future orders which are active, pending or scheduled. Future Appointments This section includes appointments that were scheduled to occur 6 months from the date of the Encounter, up to a maximum of 20 appointments. The data comes from all [place] treatment facilities. Appointment Date/Time Appointment Type Appointme nt Facility Name May 01, 2024 08:30 AM AMBULATORY - [facility] May 08, 2024 10:30 [facility] Jun 14, 2024 10:30 AM [facility] - PS[facility]CHIATRY [facility] Jun 18, 2024 02:30 PM AMBULATORY - [facility] Jun 20, 2024 10:00 AM AMBULATORY - NONE [facility] Jul 18, 2024 07:30 AM [facility]ATORY - [facility] Jul 26, 2024 10:30 AM AMBULATORY - MEDICINE [facility] Active, Pending, and Scheduled Orders This section includes a listing of several types of active, pending, and scheduled orders, including clinic medications orders, diagnostic test orders, procedure orders and consult orders; where the start date of the order is 45 days before the date of the Encounter or 45 days after the date of theEncounter. The data comes from all [place] treatment facilities. Test Date/Time Test Type Test Details Facility Name Apr 23, 2024 12:00 AM Laboratory - Chemi stry Order TSH BLOOD (SST-SERUM) [facility] May 08, 2024 11:13 AM Consult Order HOME SLEEP STUDY NOX/SPOPC OUTPT Cons [employer] [facility] May 16, 2024 12:00 AM Laboratory - Chemi stry Order TESTOSTERONE-FREE (qu) BLOOD (RED-PLAIN) [facility] May 16, 2024 12:00 AM Laboratory - Chemi stry Order TESTOSTERONE, TOTAL (WHV) BLOOD (SST-GOLD) [facility] May 23, 2024 12:00 AM Laboratory - Chemi stry Order TSH BLOOD (SST-SERUM) [facility] May 23, 2024 12:00 AM Laboratory - Chemi stry Order TESTOSTERONE, TOTAL (WHV) BLOOD (SST-GOLD) [facility] May 23, 2024 12:00 AM Laboratory - Chemi stry Order TESTOSTERONE-FREE (qu) BLOOD (RED-PLAIN) [facility] May 23, 2024 12:00 AM Laboratory - Chemi stry Order FSH BLOOD (RED-PLAIN) [facility] May 23, 2024 12:00 AM Laboratory - Chemi stry Order LH BLOOD (SST-SERUM) [facility] Lab Results: +/- 30 days of the encounter This section includes the Chemistry and Hematology Lab Results on record with [place] for the patient. Radiology Reports and Pathology Reports are provided separately, in subsequent sections. Lab Results This section contains the Chemistry/Hematology Results that were resulted 30 days before or 30 daysafter the date of the Encounter. Date/Time Source Result Type Result - Unit Interpretation Reference Range Comment Apr 13, 2024 08:40 AM [facility] URIC ACID Specimen Type: SERUM No comment entered. Ordering Provider: ALBIN FARRELL Report Released Date/Time: Feb 22, 2024 01:07 PM Reporting Lab: [facility] [address] [facility] [address] Performing Lab: [address] [address] URIC ACID 6.5 mg/dL 3.5-7.2 Apr 13, 2024 08:40 AM [facility] TSH Specimen Type: SERUM No comment entered. Ordering Provider: ALBIN FARRELL Report Released Date/Time: Feb 22, 2024 01:07 PM Reporting Lab: [facility] [address] [facility] [address] Performing Lab: [address] [address] TSH 1.05 u[IU]/mL 0.35-5.00 Apr 13, 2024 08:40 AM [facility] URINALYSIS Specimen Type: URINE Comment: If Glucose = >500 and Ketones are positive, please alert the Physician. Ordering Provider: ALBIN FARRELL Report Released Date/Time: Feb 22, 2024 01:07 PM Reporting Lab: [address] [address] Performing Lab: [address] [address] UA COLOR Light-Yellow Yellow UA APPEARANCE Clear Clear UA GLUCOSE Normal mg/dL Negative UA KETONES NEGATIVE mg/dL Negative UA BLOOD NEGATIVE mg/dL Negative UA PROTEIN NEGATIVE mg/dL Negative UA NITRITE NEGATIVE mg/dL Negative UA BILIRUBIN NEGATIVE mg/dL Negative UA SPECIFIC GRAVITY 1.024 H 1.016-1.022 UA pH 6.0 5.0-9.0 UA UROBILINOGEN Normal mg/dL <2.0 UA LEUKOCYTE NEGATIVE Negative Apr 13, 2024 08:40 AM [facility] MICROALBUMIN CREATININE RATIO PANEL Spe cimen Type: URINE No comment entered. Ordering Provider: ALBIN FARRELL Report Released Date/Time: Feb 22, 2024 01:07 PM Reporting Lab: [address] [address] Performing Lab: [address] [address] MICROALBUMIN/C REATININE RATIO 5.7 mg/g 0-29.9 MICROALBUMIN,Q UANTITATIVE 0.8 mg/dL RR UNAVAIL CREATININE URINE 140.93 mg/dL Apr 13, 2024 08:40 AM [facility] HEMOGLOBIN A1C PANEL Specimen Type: BLOOD Comment: Values obtained from A1C measurements can vary. For atypical A1C assays, a reported value of 7.0 could actually be between 6.72 and 7.28 if measured by a reference method. A reported value of 9.0 could actually be between 8.73 and 9.27. Ref: http://www.ngs p.org/CAPdata. asp Ordering Provider: ALBIN FARRELL Report Released Date/Time: Feb 22, 2024 01:07 PM Reporting Lab: [address] [address] Performing Lab: [address] [address] HEMOGLOBIN A1C 4.7 4.0-5.6 Apr 13, 2024 08:40 AM [facility] FERRITIN Specimen Type: SERUM No comment entered. Ordering Provider: ALBIN FARRELL Report Released Date/Time: Feb 22, 2024 01:07 PM Reporting Lab: [address] [address] Performing Lab: [address] [address] FERRITIN 91 ng/mL 20-300 Apr 13, 2024 08:40 AM [facility] VITAMIN D (25-OH) Specimen Type: SERUM No comment entered. Ordering Provider: ALBIN FARRELL Report Released Date/Time: Feb 22, 2024 01:07 PM Reporting Lab: [address] [address] Performing Lab: [address] [address] VITAMIN D (25-OH) 41 ng/mL 20-50 Apr 13, 2024 08:40 AM [facility] VITAMIN B12 Specimen Type: SERUM No comment entered. Ordering Provider: ALBIN FARRELL Report Released Date/Time: Feb 22, 2024 01:07 PM Reporting Lab: [address] [address] Performing Lab: [facility] [address] [facility] [address] VITAMIN B12 393 pg/mL 200-900 Apr 13, 2024 08:40 AM [facility] CBC AND DIFF (AUTO) Specimen Type: BLOOD No comment entered. Ordering Provider: ALBIN FARRELL Report Released Date/Time: Feb 22, 2024 01:07 PM Reporting Lab: [facility] [address] [facility] [address] Performing Lab: [address] [address] WBC 4.94 10*3/uL 4.50-11.00 RBC 4.96 10*6/uL 4.23-5.66 HGB 15.0 g/dL 12.8-17 HCT 44.0 39.2-50.4 MCV 88.7 fL 82-99 MCHC 34.1 g/dL 30.8-35.1 PLT 306 10*3/uL 140-360 RDW-CV 13.1 12.0-16.0 MONO, ABS 0.33 10*3/uL 0.30-1.10 MCH 30.2 pg 26.2-32.6 NEUT % 49.8 43.7-75.8 LYMPH % 36.8 14.0-42.3 MONO % 6.7 5.1-13.7 EOS % 5.3 0.4-6.8 BASO % 0.8 0.1-2.0 NEUT, ABS 2.46 10*3/uL 2.20-7.60 LYMPH, ABS 1.82 10*3/uL 1.00-3.20 EOS, ABS 0.26 10*3/uL 0.03-0.44 BASO, ABS 0.04 10*3/uL 0.01-0.13 IMMATURE GRAN % 0.6 0.0-0.7 IMMATURE GRAN, ABS 0.03 10*3/uL 0.00-0.06 NRBC % 0.0 0.0-0.0 NRBC, ABS 0.00 10*3/uL 0.00-0.00 Apr 13, 2024 08:40 AM [facility] PSA Specimen Type: SERUM No comment entered. Ordering Provider: ALBIN FARRELL Report Released Date/Time: Feb 22, 2024 01:07 PM Reporting Lab: [address] [address] Performing Lab: [address] [address] PSA 0.46 ng/mL 0.00-4.00 Apr 13, 2024 08:40 AM [facility] BASIC METABOLIC PANEL (fasting) Specime n Type: SERUM No comment entered. Ordering Provider: ALBIN FARRELL Report Released Date/Time: Feb 22, 2024 01:07 PM Reporting Lab: [address] [address] Performing Lab: [address] [address] UREA NITROGEN 18 mg/dL 7-25 GLUCOSE 85 mg/dL 65-100 SODIUM 139 mmol/L 135-145 POTASSIUM 4.5 mmol/L 3.5-5.0 CHLORIDE 106 mmol/L 100-110 CO2 23 meq/L 20-30 CREATININE, Serum 1.03 mg/dL 0.50-1.40 eGFR(CKD-EPI 2020) >90 mL/min >60 Apr 13, 2024 08:40 AM [facility] LIVER FUNCTION Specimen Type: SERUM No comment entered. Ordering Provider: ALBIN FARRELL Report Released Date/Time: Feb 22, 2024 01:07 PM Reporting Lab: [address] [address] Performing Lab: [address] [address] PROTEIN,TOTAL 7.2 g/dL 6.0-8.3 ALBUMIN 4.4 g/dL 3.5-5.0 ALKALINE PHOSPHATASE 38 U/L L 40-150 AST 21 U/L 5-34 ALT 28 U/L BILIRUBIN, TOTAL 0.4 mg/dL 0.2-1.2 Apr 13, 2024 08:40 AM [facility] LIPID PANEL FASTING Specimen Type: SERUM No comment entered. Ordering Provider: ALBIN FARRELL Report Released Date/Time: Feb 22, 2024 01:07 PM Reporting Lab: [address] [address] Performing Lab: [address] [address] CHOLESTEROL 178 mg/dL TRIGLYCERIDE 69 mg/dL 0-150 LDL calculated 112 mg/dL 0-129 CHOL/HDL 3.4 HDL CHOLESTEROL 52 mg/dL 40-60 Apr 13, 2024 08:40 AM [facility] CALCIUM Specimen Type: SERUM No comment entered. Ordering Provider: ALBIN FARRELL Report Released Date/Time: Feb 22, 2024 01:07 PM Reporting Lab: [address] [address] Performing Lab: [address] [address] CALCIUM 9.5 mg/dL 8.5-10.2 Radiology Reports: +/- 30 days of the encounter Radiology Reports For cases when an order for radiology services may have been completed prior to the date of the Encounter, the report list includes the Radiology Reports that were completed up to 30 days before dateof the Encounter. For cases when an order for radiology services may have been completed after the date of the Encounter, the report list also includes the Radiology Reports that were completed up to30 days after date of the Encounter. The data comes from all [place] treatment facilities. Date/Time Radiology Report Provider Source Apr 16, 2024 08:53 AM SPINE LUMBOSACRAL MIN 2 VIEWS: KEITH PASCUAL [id number] -1990 M Exm Date: APR 16, 2024@08:53 Req Phys: ALBIN FARRELL Pat Loc: CWM/SO/PACT 3 WH (Req'g Loc) [facility] [place] Loc: [facility] Service: [place] [address] (Case 48 COMPLETE) SPINE LUMBOSACRAL MIN 2 VIEWS (RAD Detailed) CPT:53780 Reason for Study: lbp and thoracic back Clinical History: seems purely muscular no neurologic sx Report Status: Verified Date Reported: APR 16, 2024 Date Verified: APR 16, 2024 Letter Sorting Machine Operator E-Sig:/ES/MANISHA GARCIA JR Report: Study: AP and lateral views of the lumbar spine. COMPARISON: None FINDINGS: There are 6 lumbar type vertebral bodies identified. The lumbar spine intervertebral disc spaces are normal. The lumbar spine alignment is normal. The vertebral body heights are normal. The bony mineralization is normal. The sacroiliac joints are normal for age. The paraspinal soft tissues appear normal. Impression: No acute bony abnormality identified. Primary Diagnostic Code: No immediate attention required Primary Interpreting Staff: MANISHA GARCIA JR, Radiologist (Letter Sorting Machine Operator) /MANISHA BRANDT JR [facility] Apr 16, 2024 08:53 AM SPINE THORACIC, 2 VIEWS: KEITH PASCUAL [id number] -1990 M Exm Date: APR 16, 2024@08:53 Req Phys: ALBIN FARRELL Loc: CWM/SO/PACT 3 [facility] (Req'g Loc) Img Loc: [facility] 1 Service: [place] [address] (Case 49 COMPLETE) SPINE THORACIC, 2 VIEWS (RAD Detailed) CPT:23697 Reason for Study: lbp and thoracic back Clinical History: seems purely muscular no neurologic sx Report Status: Verified Date Reported: APR 16, 2024 Date Verified: APR 16, 2024 Letter Sorting Machine Operator E-Sig:/ES/MANISHA GARCIA JR Report: Study: AP and lateral views of the thoracic spine. Comparison: None. Findings: There is mild intervertebral disc space narrowing, vertebral endplate sclerosis and anterior osteophytosis throughout the entire thoracic spine consistent with degenerative disc disease. The thoracic spine alignment is normal. The vertebral heights are normal.There is mild facet joint hypertrophic change. The bony mineralization is normal. No bony fracture, dislocation or subluxation. The visualized paravertebral soft tissues are normal. Impression: No acute bony abnormality with mild degenerative changes to the thoracic spine, as described above. Primary Diagnostic Code: No immediate attention required Primary Interpreting Staff: MANISHA GARCIA JR, Radiologist (Letter Sorting Machine Operator) /MANISHA BRANDT JR [facility] Encounter Notes: All associated encounter notes This section contains the clinical notes associated to the Encounter. Date/Time Encounter Note(s) Provider Source Apr 20, 2024 07:42 AM ADMINISTRATIVE NOT E: LOCAL TITLE: CCC: SCHEDULING ADMINISTRATION STANDARD TITLE: ADMINISTRATIVE NOTE DATE OF NOTE: APR 20, 2024@07:42 ENTRY DATE: APR 20, 2024@07:42:15 AUTHOR: MITALI VAZQUEZ EXP COSIGNER: URGENCY: STATUS: COMPLETED Cancel Appointment Verify Patient Demographics Successfully verified patient demographics Appointment Type: Reason for Cancellation: Change in Schedule Patient would like: Cancel and reschedule Action(s) Completed: Successfully canceled and rescheduled appointment. [place] rescheduled to 04/27/24@1000 /es/ MITALI VAZQUEZ VISN 2 [facility] Signed: 04/20/2024 07:43 Receipt Acknowledged By: 04/20/2024 09:01 /es/ TULIO MOSLEY for MILDRED TIJERINA 04/23/2024 13:46 /es/ GABY CORDOBA LPN LICENSED PRACTICAL NURSE MITALI [facility]QUEZ [facility]
--- OUTSIDE RECORDS SUMMARY | 2024-06-21 00:04 | XMS_ITS | Encounter Summary ---
Author Name [facility] Address [address] [place] [id number] Care Team Providers Care Dragger Name Role Phone ALBIN FARRELL Primary Care Provider Unavailonesimo e Selected Encounter This section includes the information on record at NH for the Encounter. Date/Time Encounter Type Encounter Description Reason Provider Source May 01, 2024 08:30 AM SELF CARE MNGMENT TRAINING PHYSICAL THERAPY ICD-10-CM M54.51 Vertebrogenic low back pain LINO RUTH [facility] Encounter Template Text not used by [facility] Assessments - Encounter Diagnoses This section includes the primary and secondary diagnoses documented for the Encounter. Date/Time Primary/Secondary Diagnosis Diagnosis Name Provider Source May 01, 2024 01:00 PM PRIMARY Vertebrogenic low back pain CHON RUTH Plan of Treatment: Future Appointments (+ 6 months) and Future Tests (+/- 45 days) The Plan of Treatment section includes future care activities for the patient from all [place] treatmentfacilities. This section includes future appointments and future orders which are active, pending or scheduled. Future Appointments This section includes appointments that were scheduled to occur 6 months from the date of the Encounter, up to a maximum of 20 appointments. The data comes from all [place] treatment facilities. Appointment Date/Time Appointment Type Appointme nt Facility Name May 08, 2024 10:30 AM AMBULATORY - MEDICINE [facility] Jun 14, 2024 10:30 AM AMBULATORY - PSYCHIATRY SP [facility] Jun 18, 2024 02:30 PM AMBULATORY - REHAB MEDICIN [facility] Jun 20, 2024 10:00 AM AMBULATORY - NONE [facility] Jul 18, 2024 07:30 AM AMBULATORY - REHAB MEDICIN [facility] Jul 26, 2024 10:30 AM AMBULATORY - MEDICINE [facility] Active, Pending, and Scheduled Orders This section includes a listing of several types of active, pending, and scheduled orders, including clinic medications orders, diagnostic test orders, procedure orders and consult orders; where the start date of the order is 45 days before the date of the Encounter or 45 days after the date of theEncounter. The data comes from all [place] treatment facilities. Test Date/Time Test Type Test Details Facility Name Apr 23, 2024 12:00 AM Laboratory - Chemi stry Order TSH BLOOD (SST-SERUM) [facility] May 08, 2024 11:13 AM Consult Order HOME SLEEP STUDY NOX/SPOPC OUTPT Cons Pattern Room Attendant's [facility] May 16, 2024 12:00 AM Laboratory - Chemi stry Order TESTOSTERONE-FREE (qu) BLOOD (RED-PLAIN) SERUM [facility] May 16, 2024 12:00 AM Laboratory - Chemi stry Order TESTOSTERONE, TOTAL (WHV) BLOOD (SST-GOLD) SERUM [facility] May 23, 2024 12:00 AM Laboratory - Chemi stry Order TSH BLOOD (SST-SERUM) [facility] May 23, 2024 12:00 AM Laboratory - Chemi stry Order TESTOSTERONE, TOTAL (WHV) BLOOD (SST-GOLD) SERUM [facility] May 23, 2024 12:00 AM Laboratory - Chemi stry Order TESTOSTERONE-FREE (qu) BLOOD (RED-PLAIN) SERUM [facility] May 23, 2024 12:00 AM Laboratory - Chemi stry Order FSH BLOOD (RED-PLAIN) SERUM [facility] May 23, 2024 12:00 AM Laboratory - Chemi stry Order LH BLOOD (SST-SERUM) [facility] Jun 14, 2024 03:35 PM Consult Order COMMUNITY CARE- PSYCHOTHERAPY Cons Pattern Room Attendants [facility] Lab Results: +/- 30 days of the encounter This section includes the Chemistry and Hematology Lab Results on record with [facility] for the patient. Radiology Reports and Pathology Reports are provided separately, in subsequent sections. Lab Results This section contains the Chemistry/Hematology Results that were resulted 30 days before or 30 daysafter the date of the Encounter. Date/Time Source Result Type Result - Unit Interpretation Reference Range Comment Apr 13, 2024 08:40 AM [facility] URIC ACID Specimen Type: SERUM No comment entered. Ordering Provider: ALBIN FARRELL Report Released Date/Time: Feb 22, 2024 01:07 PM Reporting Lab: [address] [address] Performing Lab: [address] [address] URIC ACID 6.5 mg/dL 3.5-7.2 Apr 13, 2024 08:40 AM [facility] TSH Specimen Type: SERUM No comment entered. Ordering Provider: ALBIN FARRELL Report Released Date/Time: Feb 22, 2024 01:07 PM Reporting Lab: [address] [address] Performing Lab: [address] [address] TSH 1.05 u[IU]/mL 0.35-5.00 Apr 13, 2024 08:40 AM [facility] URINALYSIS Specimen Type: URINE Comment: If Glucose = >500 and Ketones are positive, please alert the Physician. Ordering Provider: ALBIN FARRELL Report Released Date/Time: Feb 22, 2024 01:07 PM Reporting Lab: [address] [address] Performing Lab: [address] [address] UA COLOR Light-Yellow Yellow UA APPEARANCE Clear Clear UA GLUCOSE Normal mg/dL Negative UA KETONES NEGATIVE mg/dL Negative UA BLOOD NEGATIVE mg/dL Negative UA PROTEIN NEGATIVE mg/dL Negative UA NITRITE NEGATIVE mg/dL Negative UA BILIRUBIN NEGATIVE mg/dL Negative UA SPECIFIC GRAVITY 1.024 H 1.016-1.022 UA pH 6.0 5.0-9.0 UA UROBILINOGEN Normal mg/dL <2.0 UA LEUKOCYTE NEGATIVE Negative Apr 13, 2024 08:40 AM [facility] MICROALBUMIN CREATININE RATIO PANEL Spe cimen Type: URINE No comment entered. Ordering Provider: ALBIN FARRELL Report Released Date/Time: Feb 22, 2024 01:07 PM Reporting Lab: [address] [address] Performing Lab: [address] [address] MICROALBUMIN/C REATININE RATIO 5.7 mg/g 0-29.9 MICROALBUMIN,Q UANTITATIVE 0.8 mg/dL RR UNAVAIL CREATININE URINE 140.93 mg/dL Apr 13, 2024 08:40 AM [facility] HEMOGLOBIN A1C PANEL Specimen Type: BLOOD Comment: [...] Feb 22, 2024 01:07 PM Reporting Lab: [address] [address] Performing Lab: [address] [address] HEMOGLOBIN A1C 4.7 4.0-5.6 Apr 13, 2024 08:40 AM [facility] FERRITIN Specimen Type: SERUM No comment entered. Ordering Provider: ALBIN FARRELL Report Released Date/Time: Feb 22, 2024 01:07 PM Reporting Lab: [address] [address] Performing Lab: [address] [address] FERRITIN 91 ng/mL 20-300 Apr 13, 2024 08:40 AM [facility] VITAMIN D (25-OH) Specimen Type: SERUM No comment entered. Ordering Provider: ALBIN FARRELL Report Released Date/Time: Feb 22, 2024 01:07 PM Reporting Lab: [address] [address] Performing Lab: [address] [address] VITAMIN D (25-OH) 41 ng/mL 20-50 Apr 13, 2024 08:40 AM [facility] VITAMIN B12 Specimen Type: SERUM No comment entered. Ordering Provider: ALBIN FARRELL Report Released Date/Time: Feb 22, 2024 01:07 PM Reporting Lab: [facility] [address] [facility] [address] Performing Lab: [address] [address] VITAMIN B12 393 pg/mL 200-900 Apr 13, 2024 08:40 AM [facility] CBC AND DIFF (AUTO) Specimen Type: BLOOD No comment entered. Ordering Provider: ALBIN FARRELL Report Released Date/Time: Feb 22, 2024 01:07 PM Reporting Lab: [address] [address] Performing Lab: [address] [address] WBC 4.94 10*3/uL 4.50-11.00 RBC 4.96 10*6/uL [...] 10*3/uL 0.00-0.00 Apr 13, 2024 08:40 AM [facility] PSA Specimen Type: SERUM No comment entered. Ordering Provider: ALBIN FARRELL Report Released Date/Time: Feb 22, 2024 01:07 PM Reporting Lab: [facility] [address] [address] Performing Lab: [address] [address] PSA 0.46 ng/mL 0.00-4.00 Apr 13, 2024 08:40 AM [facility] BASIC METABOLIC PANEL (fasting) Specime n Type: SERUM No comment entered. Ordering Provider: ALBIN FARRELL Report Released Date/Time: Feb 22, 2024 01:07 PM Reporting Lab: [address] [address] Performing Lab: [address] [address] UREA NITROGEN 18 mg/dL 7-25 GLUCOSE 85 mg/dL 65-100 SODIUM 139 mmol/L 135-145 POTASSIUM 4.5 mmol/L 3.5-5.0 CHLORIDE 106 mmol/L 100-110 CO2 23 meq/L 20-30 CREATININE, Serum 1.03 mg/dL 0.50-1.40 eGFR(CKD-EPI 2020) >90 mL/min >60 Apr 13, 2024 08:40 AM [facility] LIVER FUNCTION Specimen Type: SERUM No comment entered. Ordering Provider: ALBIN FARRELL Report Released Date/Time: Feb 22, 2024 01:07 PM Reporting Lab: [address] [address] Performing Lab: [address] [address] PROTEIN,TOTAL 7.2 g/dL 6.0-8.3 ALBUMIN 4.4 g/dL 3.5-5.0 ALKALINE PHOSPHATASE 38 U/L L 40-150 AST 21 U/L 5-34 ALT 28 U/L BILIRUBIN, TOTAL 0.4 mg/dL 0.2-1.2 Apr 13, 2024 08:40 AM [facility] LIPID PANEL FASTING Specimen Type: SERUM No comment entered. Ordering Provider: ALBIN FARRELL Report Released Date/Time: Feb 22, 2024 01:07 PM Reporting Lab: [address] [address] Performing Lab: [address] [address] CHOLESTEROL 178 mg/dL TRIGLYCERIDE 69 mg/dL 0-150 LDL calculated 112 mg/dL 0-129 CHOL/HDL 3.4 HDL CHOLESTEROL 52 mg/dL 40-60 Apr 13, 2024 08:40 AM [facility] CALCIUM Specimen Type: SERUM No comment entered. Ordering Provider: ALBIN FARRELL Report Released Date/Time: Feb 22, 2024 01:07 PM Reporting Lab: [address] [address] Performing Lab: [address] [address] CALCIUM 9.5 mg/dL 8.5-10.2 Social History: Smoking Status (Most current) and Tobacco Use (All prior to encounter date) This section includes the most current, and the historical, smoking and tobacco- related health factors from the [place] facility where the Encounter took place. Current Smoking Status This section includes the most current smoking, or tobacco-related health factor, from the [place] facility where the Encounter took place. Date/Time Current Smoking Status Comment Facil ity Feb 22, 2024 11:00 AM [facility]-TOBACCO NEVER USED [facility] Radiology Reports: +/- 30 days of the [...] the Encounter. The data comes from all [place] treatment facilities. Date/Time Radiology Report Provider Source Apr 16, 2024 08:53 AM SPINE LUMBOSACRAL MIN 2 VIEWS: KEITH PASCUAL [id number] -1990 M Exm Date: APR 16, 2024@08:53 Req Phys: ALBIN FARRELL Loc: CWM/SO/PACT 3 WH (Req'g Loc) Img Loc: [facility] 1 Service: [place] [address] (Case 48 COMPLETE) SPINE LUMBOSACRAL MIN 2 VIEWS (RAD Detailed) CPT:23905 Reason for Study: lbp and thoracic back Clinical History: seems purely muscular no neurologic sx Report Status: Verified Date Reported: APR 16, 2024 Date Verified: APR 16, 2024 Cartridge Feeder E-Sig:/ES/MANISHA GARCIA JR Report: Study: AP and [...] Primary Interpreting Staff: MANISHA GARCIA JR, Radiologist (Cartridge Feeder) /EAD MANISHA GARCIA JR [facility] Apr 16, 2024 08:53 AM SPINE THORACIC, 2 VIEWS: KEITH PASCUAL [id number] -1990 M Exm Date: APR 16, 2024@08:53 Req Phys: ALBIN FARRELL Loc: CWM/SO/PACT 3 WH (Req'g Loc) Img Loc: [facility] 1 Service: [place] [address] (Case 49 COMPLETE) SPINE THORACIC, 2 VIEWS (RAD Detailed) CPT:06101 Reason for Study: lbp and thoracic back Clinical History: seems purely muscular no neurologic sx Report Status: Verified Date Reported: APR 16, 2024 Date Verified: APR 16, 2024 Cartridge Feeder E-Sig:/ES/MANISHA GARCIA JR Report: Study: AP and [...] Primary Interpreting Staff: MANISHA GARCIA JR, Radiologist (Cartridge Feeder) /MANISHA BRANDT JR [facility] Encounter Notes: All associated encounter notes This section contains the clinical notes associated to the Encounter. Date/Time Encounter Note(s) Provider Source May 01, 2024 03:13 PM ADDENDUM: LOCAL TITLE: Addendum STANDARD TITLE: ADDENDUM DATE OF NOTE: MAY 01, 2024@15:13:23 ENTRY DATE: MAY 01, 2024@15:13:23 AUTHOR: CHON RUTH COSIGNER: URGENCY: STATUS: COMPLETED This visit was primarily performed by Catie Molina SPT, however, I, Chon Ruth PT DPT, was present during the course of this visit in its entirety providing direct supervision for this student. I agree with treatment and plan of care as stated. /orquidea/ CHON RUTH PT, DPT PHYSICAL THERAPIST Signed: 05/01/2024 15:13 Receipt Acknowledged By: 06/04/2024 16:25 /orquidea/ CATIE MOLINA PHYSICAL THERAPY STUDENT ====== --- Original Document --- 05/01/24 PHYSICAL THERAPY CONSULT: Initial Evaluation date: 05/01/24 Progress Note Date: 06/01/24 Treatment #: eval Treatment time: 45 Diagnosis: Vertebrogenic low back pain(ICD-10-CM M54.51) Provider: ALBIN FARRELL PT Treatment Precautions: Patient identified by full name and date of SUBJECTIVE: History of Current injury: Patient is a 33 yo male that reports to clinic with chief complaint of chronic low-back pain. Patient reports onset of symptoms happened years ago when they were in the service but has recently been worsening. They often had to lift heavy boxes around 100lbs from overhead shelves. Patient has been going to a chiropractor that has been using E-stim, heat, and mobilizations which provide only temporary relief. 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 Patient exercises regularly with peloton and weight lifting. Patient has difficulty and pain with running, bending over, heavy lifting/squatting, and heavier IADLs. Patient reports difficulty sleeping every night due to pain. Patients symptoms are improved with rest and medications such as ibuprofen, meloxicam, and muscle relaxer PRN. 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 Lumbar spine X-ray is unremarkable with good disc height and foraminal space. Posture: Mild rounding in shoulders, mild anterior pelvic tilt * = pain during testing ROM: Lumbar Flexion: WNL* Lumbar Extension: 25% limitation* Lumbar Left side bend: WNL Lumbar Right side bend: WNL Lumbar Left rotation: 25% limitation Lumbar Right rotation: 25% limitation Hip ROM: WNL in all directions on PROM testing Lumbar/Hip Special Tests: SLR Sign of the Buttock JUANITO (+) Bilaterally Scour CONSUELO GUILLEN 90/90 HS LEG LENGTH BERNARD PIT (-) Quadrant test - Strength: Abdominals: Leg lower test- 20 degrees Functional assessment: Bodyweight squat- increased lumbar flexion and posterior pelvic tilt at end range Palpation: Pain on CPA joint play on L4-T10. No reports of pain on palpation of paraspinal musculature. HEP Access Code: [email or web address] URL: [email or web address] Date: 05/01/2024 Prepared by: Chon Ruth Exercises - Static Prone on Elbows - 2-3 x daily - 7 x weekly - 2-3mins hold - Prone Press Up - 2-3 x daily - 7 x weekly - 10 reps - 10 hold - Cat Cow - 1 x daily - 7 x weekly - 2 sets - 10 reps - Supine Bug with Leg Extension - 1 x daily - 7 x weekly - 2-3 sets - 10-20 reps - Half Kneeling Hip Flexor Stretch - 1 x daily - 7 x weekly - 3 sets - 30 hold - Supine Bridge with Resistance Band - 1 x daily - 7 x weekly - 2-3 sets - 10-20 reps - Clamshell with Resistance - 1 x daily - 7 x weekly - 3 sets - 10 reps INTERVENTIONS: Patient education: Mins: 25 Discussed potential etiology of symptoms with patient including potential structures involved and how this relates to exercises prescribed and POC discussing frequency and duration of services to be provided with patient verbalizing good understanding and agreement with POC. Provided written HEP to patient with therex from today reviewing proper form sets reps and frequency and safety precautions with patient verbalizing and demonstrating good understanding in clinic. Provided on relative rest and to avoid motions that produce excessive flexion to help decompress the spine. Radiology findings were discussed with patients. Discussed activity modification to avoid barbell squatting, deadlifting, exercises with repetitive flexion/extension like sit ups. Also discussed using rolled towel or sweatshirt or pillow placed at the thoracolumbar junction while seated in their car or at a desk to promote a more neutral position at the lumbar spine. ASSESSMENT: Patient seen for physical therapy evaluation following referral for chronic low-back pain. Patient reports a constant baseline pain of 7/10 that impacts their activity and participation. Primary aggravating factors include running, prolonged sitting, bending over, heavy weight lifting, and IADLs such as yardwork. On physical assessment, patient had appropriate lumbar ROM but was highly irritable with pain provoked in every direction. Patients hip ROM is WNL in all direction but a positive JUANITO test due to increase knee height from the table suggesting some restrictions in the patients hip mobility. Patients leg lowering test suggest some mild core weakness and were negative for posterior instability. Functional examination of squat shows a butt wink creating rounding in the lowback. Based on patient hx and findings on examination patient is likely dealing with mechanical LBP with a mild flexion intolerance. Patient reports these symptoms impact their ability to complete their normal daily tasks like yard work and playing with their kids. Patient requires skilled physical therapy services in order to address these impairments and activity limitations and to achieve patient goal of decreasing pain. GOALS: in 4-6weeks, patient will demonstrate: consistent carryover of HEP 5/7 days per week with patient able to independently teach back 75% of exercises 2pt decrease in pain level at worst to improve patient ability to complete IADLs around the house and increase participation to improve QOL Patient will report being able to sleep though the night 4/7 days of the week to improve patient QOL Patient will report being able to squat 100lbs at the gym with self reported pain levels of 5/10 to help return to functional weight lifting task 25% improvement in lumbar extension ROM PLAN: Plan to address core stabilization exercises and progress as tolerated. Stretch out hip structures to improve restriction in mobility and strengthen the glutes to help with weight bearing activities. Progress extension-based exercises program wot help alleviate symptoms of being in a flexed posture most of the day. Plan for biweekly visits due to high irritability and chronicity of pain. [x]Low impact cardio: [X]Nustep []Recumbent bike []Recumbent elliptical []TM []Manual: []STM/DTM []METs/SCS []IASTM []Joint mobilizations [x]Therex: [X]Progressive UQ [X]Progressive Core X[]Progressive LQ []UQ flex [X] Lumbar flex []LQ flex [X]Foam rolling []Proprioception []Neuro Re-education: []Static []Dynamic []Dual-Task [x]Education: [X]Posture [X]Ergonomics []Bodymechanics []Self-care strategies []PNE []Modalities(PRN): []Heat/Ice []Estim/Tens []Mechanical traction []K-tape [] Biofreeze Initial /orquidea/ CHON RUTH PT, DPT PHYSICAL THERAPIST Signed: 05/01/2024 13:03 [place] May 01, 2024 09:12 AM PHYSICAL THERAPY C ONSULT: LOCAL TITLE: PHYSICAL THERAPY CONSULT STANDARD TITLE: PHYSICAL THERAPY CONSULT DATE OF NOTE: MAY 01, 2024@09:12 ENTRY DATE: MAY 01, 2024@09:12:10 AUTHOR: CHON RUTH EXP COSIGNER: URGENCY: STATUS: COMPLETED PHYSICAL THERAPY CONSULT Has ADDENDA Initial Evaluation date: 05/01/24 Progress Note Date: 06/01/24 Treatment #: eval Treatment time: 45 Diagnosis: Vertebrogenic low back pain(ICD-10-CM M54.51) Provider: ALBIN FARRELL PT Treatment Precautions: Patient identified by full name and date of SUBJECTIVE: History of Current injury: Patient is a 33 yo male that reports to clinic with chief complaint of chronic low-back pain. Patient reports onset of symptoms happened years ago when they were in the service but has recently been worsening. They often had to lift heavy boxes around 100lbs from overhead shelves. Patient has been going to a chiropractor that has been using E-stim, heat, and mobilizations which provide only temporary relief. 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 Patient exercises regularly with peloton and weight lifting. Patient has difficulty and pain with running, bending over, heavy lifting/squatting, and heavier IADLs. Patient reports difficulty sleeping every night due to pain. Patients symptoms are improved with rest and medications such as ibuprofen, meloxicam, and muscle relaxer PRN. 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 Lumbar spine X-ray is unremarkable with good disc height and foraminal space. Posture: Mild rounding in shoulders, mild anterior pelvic tilt * = pain during testing ROM: Lumbar Flexion: WNL* Lumbar Extension: 25% limitation* Lumbar Left side bend: WNL Lumbar Right side bend: WNL Lumbar Left rotation: 25% limitation Lumbar Right rotation: 25% limitation Hip ROM: WNL in all directions on PROM testing Lumbar/Hip Special Tests: SLR Sign of the Buttock JUANITO (+) Bilaterally Scour FADDIR CELSA WILMER 90/90 HS LEG LENGTH BERNARD PIT (-) Quadrant test - Strength: Abdominals: Leg lower test- 20 degrees Functional assessment: Bodyweight squat- increased lumbar flexion and posterior pelvic tilt at end range Palpation: Pain on CPA joint play on L4-T10. No reports of pain on palpation of paraspinal musculature. HEP Access Code: [email or web address] URL: [email or web address] Date: 05/01/2024 Prepared by: Chon Ruth Exercises - Static Prone on Elbows - 2-3 x daily - 7 x weekly - 2-3mins hold - Prone Press Up - 2-3 x daily - 7 x weekly - 10 reps - 10 hold - Cat Cow - 1 x daily - 7 x weekly - 2 sets - 10 reps - Supine Bug with Leg Extension - 1 x daily - 7 x weekly - 2-3 sets - 10-20 reps - Half Kneeling Hip Flexor Stretch - 1 x daily - 7 x weekly - 3 sets - 30 hold - Supine Bridge with Resistance Band - 1 x daily - 7 x weekly - 2-3 sets - 10-20 reps - Clamshell with Resistance - 1 x daily - 7 x weekly - 3 sets - 10 reps INTERVENTIONS: Patient education: Mins: 25 Discussed potential etiology of symptoms with patient including potential structures involved and how this relates to exercises prescribed and POC discussing frequency and duration of services to be provided with patient verbalizing good understanding and agreement with POC. Provided written HEP to patient with therex from today reviewing proper form sets reps and frequency and safety precautions with patient verbalizing and demonstrating good understanding in clinic. Provided on relative rest and to avoid motions that produce excessive flexion to help decompress the spine. Radiology findings were discussed with patients. Discussed activity modification to avoid barbell squatting, deadlifting, exercises with repetitive flexion/extension like sit ups. Also discussed using rolled towel or sweatshirt or pillow placed at the thoracolumbar junction while seated in their car or at a desk to promote a more neutral position at the lumbar spine. ASSESSMENT: Patient seen for physical therapy evaluation following referral for chronic low-back pain. Patient reports a constant baseline pain of 7/10 that impacts their activity and participation. Primary aggravating factors include running, prolonged sitting, bending over, heavy weight lifting, and IADLs such as yardwork. On physical assessment, patient had appropriate lumbar ROM but was highly irritable with pain provoked in every direction. Patients hip ROM is WNL in all direction but a positive JUANITO test due to increase knee height from the table suggesting some restrictions in the patients hip mobility. Patients leg lowering test suggest some mild core weakness and were negative for posterior instability. Functional examination of squat shows a butt wink creating rounding in the lowback. Based on patient hx and findings on examination patient is likely dealing with mechanical LBP with a mild flexion intolerance. Patient reports these symptoms impact their ability to complete their normal daily tasks like yard work and playing with their kids. Patient requires skilled physical therapy services in order to address these impairments and activity limitations and to achieve patient goal of decreasing pain. GOALS: in 4-6weeks, patient will demonstrate: consistent carryover of HEP 5/7 days per week with patient able to independently teach back 75% of exercises 2pt decrease in pain level at worst to improve patient ability to complete IADLs around the house and increase participation to improve QOL Patient will report being able to sleep though the night 4/7 days of the week to improve patient QOL Patient will report being able to squat 100lbs at the gym with self reported pain levels of 5/10 to help return to functional weight lifting task 25% improvement in lumbar extension ROM PLAN: Plan to address core stabilization exercises and progress as tolerated. Stretch out hip structures to improve restriction in mobility and strengthen the glutes to help with weight bearing activities. Progress extension-based exercises program wot help alleviate symptoms of being in a flexed posture most of the day. Plan for biweekly visits due to high irritability and chronicity of pain. [x]Low impact cardio: [X]Nustep []Recumbent bike []Recumbent elliptical []TM []Manual: []STM/DTM []METs/SCS []IASTM []Joint mobilizations [x]Therex: [X]Progressive UQ [X]Progressive Core X[]Progressive LQ []UQ flex [X] Lumbar flex []LQ flex [X]Foam rolling []Proprioception []Neuro Re-education: []Static []Dynamic []Dual-Task [x]Education: [X]Posture [X]Ergonomics []Bodymechanics []Self-care strategies []PNE []Modalities(PRN): []Heat/Ice []Estim/Tens []Mechanical traction []K-tape [] Biofreeze Initial /orquidea/ CHON RUTH PT, DPT PHYSICAL THERAPIST Signed: 05/01/2024 13:03 05/01/2024 ADDENDUM STATUS: COMPLETED This visit was primarily performed by Catie Molina SPT, however, I, Chon Ruth PT, DPT, was present during the course of this visit in its entirety providing direct supervision for this student. I agree with treatment and plan of care as stated. /orquidea/ CHON RUTH PT, DPT PHYSICAL THERAPIST Signed: 05/01/2024 15:13 Receipt Acknowledged By: * AWAITING SIGNATURE * CATIE MOLINA MICHAEL [place]
--- OUTSIDE RECORDS SUMMARY | 2024-06-21 00:04 | XMS_ITS | Encounter Summary ---
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 Date/Time Encounter Type Encounter Description Reason Provider Source Feb 22, 2024 11:00 AM OFFICE O/P EST MOD 30 MIN PRIMARY CARE/MEDICINE ICD-10-CM M54.50 Low back pain, unspecified ALBIN FARRELL Encounter Template Text not used by [place] Assessments - Encounter Diagnoses This section includes the primary and secondary diagnoses documented for the Encounter. Date/Time Primary/Secondary Diagnosis Diagnosis Name Provider Source Feb 22, 2024 03:51 PM PRIMARY Low back pain, unspecified ALBIN FARRELL Feb 22, 2024 03:51 PM SECONDARY Irritable bowel syndrome without diarrhea ALBIN FARRELL Feb 22, 2024 03:51 PM SECONDARY Migraine w/o aura, not intractable, w/o status migrainosus ALBIN FARRELL Plan of Treatment: Future Appointments (+ 6 months) and Future Tests (+/- 45 days) The Plan of Treatment section includes future care activities for the patient from all [place] treatmentfacilities. This section includes future appointments and future orders which are active, pending or scheduled. Future Appointments This section includes appointments that were scheduled to occur 6 months from the date of the Encounter, up to a maximum of 20 appointments. The data comes from all [place] treatment facilities. Appointment Date/Time Appointment Type Appointme nt Facility Name May 01, 2024 08:30 AM AMBULATORY - REHAB MEDICIN [facility] May 08, 2024 10:30 AM AMBUL[facility] - MEDICINE [facility] Jun 14, 2024 10:30 AM AMBULATORY - PSYCHIATRY [facility] Jun 18, 2024 02:30 PM AMBULATORY - RE[facility]AB MEDICIN [facility] Jun 20, 2024 10:00 AM AMBULATORY - NONE [facility] [place] [facility] Jul 18, 2024 07:30 AM AMBULATORY - [facility]IN [facility] Jul 26, 2024 10:30 AM AMBULATORY - MEDICINE [facility] Active, Pending, and Scheduled Orders This section includes a listing of several types of active, pending, and scheduled orders, including clinic medications orders, diagnostic test orders, procedure orders and consult orders; where the start date of the order is 45 days before the date of the Encounter or 45 days after the date of theEncounter. The data comes from all [facility]. Test Date/Time Test Type Test Details Facility Name Feb 22, 2024 11:53 AM Consult Order COMMUNITY CARE-COLONOSCOPY DIAGNOSTIC Cons Director [facility] Vital Signs: All taken on the encounter date This section contains inpatient and outpatient Vital Signs collected on the date of the Encounter. Date/Time Temperature Pulse Blood Pressure Respiratory Rate SP02 Pain Height Weight Body Mass Index Source Feb 22, 2024 11:13 AM 68 [place] Feb 22, 2024 11:12 AM 98 78 125/73 18 97 207 [facility] Social History: Smoking Status (Most current) and Tobacco Use (All prior to encounter date) This section includes the most current, and the historical, smoking and tobacco- related health factors from the [place] facility where the Encounter took place. Current Smoking Status This section includes the most current smoking, or tobacco-related health factor, from the [place] facility where the Encounter took place. Date/Time Current Smoking Status Comment Denisa davis Feb 22, 2024 11:00 AM VA-TOBACCO NEVER USED [facility] Encounter Notes: All associated encounter notes This section contains the clinical notes associated to the Encounter. Date/Time Encounter Note(s) Provider Source Apr 17, 2024 03:01 PM LETTERS: LOCAL TITLE: PATIENT LETTER (T) STANDARD TITLE: LETTERS DATE OF NOTE: APR 17, 2024@15:01 ENTRY DATE: APR 17, 2024@15:02:02 AUTHOR: ALBIN FARRELL EXP COSIGNER: URGENCY: STATUS: COMPLETED [facility] Toll Free Number Primary Care Telephone Assistance can be reached at extension [phone] [facility] scheduling can be reached at extension [phone] [facility] scheduling can be reached at ext [phone] KEITH SILVA [address] [place], [place], [address] Dear Mr. Silva, The x-rays of you back were good. There is no arthritis or slipped discs or, any other abnormailities. 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 [address] [facility] [address] [place] [address] [place] [address] [phone] [facility] [address] [place] [address] [place] [address] [phone] [facility] [address] [facility] [place] [id number] [place] [address] ALBIN FARRELL Feb 22, 2024 11:07 AM PREVENTIVE MEDICIN E NURSING NOTE: LOCAL TITLE: CLINICAL REMINDERS/NURSING STANDARD TITLE: PREVENTIVE MEDICINE NURSING NOTE DATE OF NOTE: FEB 22, 2024@11:07 ENTRY DATE: FEB 22, 2024@11:08:01 AUTHOR: GABY CORDOBA EXP COSIGNER: URGENCY: STATUS: COMPLETED Suicide Screen: C-SSRS Screening [place] Suicide Severity Rating Scale (C-SSRS) screener 1. Over the past month, have you wished you were or wished you could go to sleep and not wake up? No 2. Over the past month, have you had any actual thoughts of killing yourself? No 3. Over the past month, have you been thinking about how you might do this? Response not required due to responses to other questions. 4. Over the past month, have you had these thoughts and had some intention of acting on them? Response not required due to responses to other questions. 5. Over the past month, have you started to work out or worked out the details of how to kill yourself? Response not required due to responses to other questions. 6. If yes, at any time in the past month did you intend to carry out this plan? Response not required due to responses to other questions. 7. In your lifetime, have you ever done anything, started to do anything, or prepared to do anything to end your life (for example, collected pills, obtained a gun, gave away valuables, went to the roof but didn't jump)? No 8. If YES, was this within the past 3 months? Response not required due to responses to other questions. Preferred Language: What is your, or your caregiver's preferred language for healthcare? Preferred Language: Chinese HIV Screening: HIV Testing was done outside of this facility: HIV test results unknown. DATE: Month/Year 08/17/2014 in [facility] Depression Screening: Perform PHQ-2 A PHQ-2 screen was performed. The score was 0 which is a negative screen for depression. Over the past two weeks, how often have you been bothered by the following problems? 1. Little interest or pleasure in doing things Not at all 2. Feeling down, depressed, or hopeless Not at all PTSD Screening: PC-PTSD-5 A PTSD screening test (PC-PTSD-5) was negative (score=0). IN THE PAST MONTH, have you ever had any experience that was so frightening, horrible or traumatic. For example: A serious accident or fire a physical or sexual assault or abuse An earthquake or flood A war Seeing someone be killed or seriously injured Having a loved one through homicide or suicide 1. Have you ever experienced this kind of event? NO 2. Had nightmares about the event(s) or thought about the event(s) when you did not want to? Response not required due to responses to other questions. 3. Tried hard not to think about the event(s) or went out of your way to avoid situations that reminded you of the event(s)? Response not required due to responses to other questions. 4. Been constantly on guard, watchful, or easily startled? Response not required due to responses to other questions. 5. [place] numb or detached from people, activities, or your surroundings? Response not required due to responses to other questions. 6. [place] guilty or unable to stop blaming yourself or others for the event(s) or any problems the event(s) may have caused? Response not required due to responses to other questions. Tobacco Use Screening: The patient has never used tobacco. Influenza Immunization: No influenza vaccination was received during the recent influenza season. Tdap Immunization: The patient declines to receive the recommended dose of Tdap vaccine. Immunization: TDAP Refusal Reason: PATIENT DECISION Patient refuses all immunization(s) in the TDAP group Date Documented: 02/22/24 11:11 Sexual Orientation: The patient thinks of their sexual orientation as: Straight or Heterosexual Alcohol Use Screen (AUDIT-C): Alcohol Screen: SCREEN FOR ALCOHOL (AUDIT-C) An alcohol screening test (AUDIT-C) was negative (score=2). 1. How often did you have a drink containing alcohol in the past year? Consider a drink to be a 12 ounce can or bottle of regular beer, 8 ounces of malt liquor, a 5 ounce glass of table wine, or a 1.5 ounce shot of liquor (like scotch, gin, or vodka). Two to four times a month 2. How many drinks containing alcohol did you have on a typical day when you were drinking in the past year? One or two drinks 3. How often did you have six or more drinks on one occasion in the past year? Never RHS Screen: RHS Screen Environmental Check Upon inquiry, the individual reports that the environment is safe to proceed. Informed Consent to Screen and Document The individual consents to proceed with screening. The individual consents to documentation of responses. PRIMARY SCREEN: In the past 12 months, how often did a current or former intimate partner (e.g., boyfriend, girlfriend, , , sexual partner): 1. Scream or curse at you Never 2. Insult or talk down to you Never 3. Threaten you with harm Never 4. Physically hurt you Never 5. Force or pressure you to have sexual contact against your will, or when you were unable to say no Never ?? The HITS tool (items 1-4 above) is US copyright protected by Wade Maldonado MD, and the user has full rights to use it throughout the [place] system. PRIMARY SCREEN RESULT: The Primary Screen is NEGATIVE. The individual answered never to all forms of IPV above (i.e., answered never to all 5 items) The individual accepts education and/or resources: No EDUCATION: Other: COVID-19 Immunization: Vaccine given previously - no written/electronic documentation available Comment: Its at home my card The patient was instructed to bring a copy of their COVID-19 vaccine information to their next appointment so that this can be accurately recorded in their [place] medical record. BMI>30/>24.99 High Risk: Patient declines to discuss weight management. Patient declined weight discussion. Discussed revisiting at a future visit. Hepatitis B Serology/Immunization: The patient declines to have HBV serology done. Reason: The patient declines to receive the recommended dose of Hepatitis B vaccine. Immunization: HEP B, UNSPECIFIED FORMULATION Refusal Reason: PATIENT DECISION Patient refuses all immunization(s) in the HepB group Comment: Here to soto I have an outsdie doctor. Date Documented: 02/22/24 11:19 Hepatitis C Testing: Patient declines HCV lab test. Reason: I am here to establish sue /orquidea/ GABY CORDOBA LPN LICENSED PRACTICAL NURSE Signed: 02/22/2024 11:23 GABY CORDOBA [facility] Feb 22, 2024 11:07 AM PHYSICIAN ASSISTAN T NOTE: LOCAL TITLE: PA NOTE STANDARD TITLE: PHYSICIAN MANAGER DRIVE NOTE DATE OF NOTE: FEB 22, 2024@11:07 ENTRY DATE: FEB 22, 2024@11:07:21 AUTHOR: ALBIN FARRELL COSIGNER: URGENCY: STATUS: COMPLETED S - 33 y/o M Allergy: NKAM MEDS: see below CC: new pt initial eval HPI: see Problem List PMH: neg CAD/AMI neg HTN neg PVD or PAD neg COPD neg Asthma + Chronic Sinusitis neg Hepatic Disorders neg Renal Disorders neg CVA/TIA neg Seizures +Migraine CASSIDY neg Chronic Coagulopathy +Reflux + IBS (gets both constipation and diarrhea) neg PUD, UGI Bleed neg Anemia, Excess Bleeding, Easy Bruising neg Blood Transfusions neg DM neg Thyroid Disorders neg BPH +ED + Insomnia (not AISHA) any Signif Infectious Diseases? No like TB/HIV/HEP B or C +arthralgias/myalgias that he attributes to the never CA of any kind PSH: see Problem list ROS: denies fever, night sweats denies unintended changes WT/appetite denies new fatigue denies new chest pain denies new dyspnea/SOB denies new mental staus changes (or TIA Sx) denies ABD pain denies N/V/D +intermit diarrhea/constipation associ. 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 [employer] - [place], [place], [place], [place], [place] WIA - never TBI - no [place]: [employer] SH: O - coop A&Ox3 NAD W-N/H/D VS: Stable HEENT: Eyes - PERRL, anicteric OU Ears - EAC clear AU TM clear AU Oropharynx - no petechiae, uvula midline NECK: no adeno no bruits PUL: Resp full, reg, unlabored; CTA B/L COR: RRR, no M ABD: no distention no bruits no tenderness no mass/megaly RECTAL: defer SPINE: nl kyphosis nl lordosis +PVM rigid, tenderness lat's bilat F-AROM Neuro Intact SLR neg EXT: no LLE or calf tenderness INTEG: NL texture/turgor NAILS: no clubbing no spooning LABS: not done yet A/P - 1) Normotensive 2) C/V Stable - never VT 3) Migraine CASSIDY's Neuro Stable - never CVA/TIA - RADS: has has MRI of Brain in past - no Organic Disease - sees Private Neuro [facility] - I ask that [facility] Obtain Private Neuro Notes - then, I will ask Neuro at [facility] ([facility]) for Second Opinion 4) Normoglycemic 5) Coagulopathy - no 6) Irritable Bowel Syndrome ? r/o Organic Disease - CON: Diagnost Colonoscopy (r/o organic processes) - trial [facility] 8) [place] - RADS: L-Spine T-Spine - CON: PT for Lumbar and Dorsal Spines 9) I Think Anxiety is Source CASSIDY's IBS, Insomnia; may even Contribute to Back Pain MEDS: Reconciled - has list RTC APR 24 - sooner prn Fast Labs Few Days Before Next Visit MST Screening: Patient denies experiencing sexual trauma (MST). Preferred Language: What is your, or your caregiver's preferred language for healthcare? Preferred Language: Chinese PTSD Screening: PC-PTSD-5 A PTSD screening test (PC-PTSD-5) was negative (score=0). IN THE PAST MONTH, have you ever had any experience that was so frightening, horrible or traumatic. For example: A serious accident or fire a physical or sexual assault or abuse An earthquake or flood A war Seeing someone be killed or seriously injured Having a loved one through homicide or suicide 1. Have you ever experienced this kind of event? NO 2. Had nightmares about the event(s) or thought about the event(s) when you did not want to? Response not required due to responses to other questions. 3. Tried hard not to think about the event(s) or went out of your way to avoid situations that reminded you of the event(s)? Response not required due to responses to other questions. 4. Been constantly on guard, watchful, or easily startled? Response not required due to responses to other questions. 5. [place] numb or detached from people, activities, or your surroundings? Response not required due to responses to other questions. 6. [place] guilty or unable to stop blaming yourself or others for the event(s) or any problems the event(s) may have caused? Response not required due to responses to other questions. TBI Screening: The was not deployed in support of post-03/21 operations. Tobacco Use Screening: The patient has never used tobacco. Medication Reconciliation: Outpatient: Has the patient been taking medications as documented in the EMLR? YES: The patient has been taking medications as documented in the EMLR. Essential Medication List for Review used to complete this medication reconciliation. INCLUDED IN THIS LIST: Alphabetical list of active outpatient prescriptions dispensed from this VA (local) and dispensed from another VA or DoD facility (remote) as well as inpatient orders (local, pending and active), local clinic medications, locally documented non-VA medications, and local prescriptions that have or been discontinued in the past 90 days. - All changes in medications, including all non-VA/Herbal/OTC medications were entered into CPRS. Changes: nt - If there were any medications the patient should no longer take, they were discontinued. - The patient/caregiver was instructed to update this list, discard old lists, and take this list to the next appointment, whether with a VA or non-VA provider. Alcohol Use Screen (AUDIT-C): Alcohol Screen: SCREEN FOR ALCOHOL (AUDIT-C) An alcohol screening test (AUDIT-C) was negative (score=1). 1. How often did you have a drink containing alcohol in the past year? Consider a drink to be a 12 ounce can or bottle of regular beer, 8 ounces of malt liquor, a 5 ounce glass of table wine, or a 1.5 ounce shot of liquor (like scotch, gin, or vodka). Monthly or less 2. How many drinks containing alcohol did you have on a typical day when you were drinking in the past year? One or two drinks 3. How often did you have six or more drinks on one occasion in the past year? Never Sexual Orientation: The patient thinks of their sexual orientation as: Straight or Heterosexual Screen for Embedded Fragments: SCREEN FOR EMBEDDED FRAGMENTS The patient reports no embedded fragments. Depression Screening: Perform PHQ-2 A PHQ-2 screen was performed. The score was 0 which is a negative screen for depression. Over the past two weeks, how often have you been bothered by the following problems? 1. Little interest or pleasure in doing things Not at all 2. Feeling down, depressed, or hopeless Not at all Homelessness/Food Insecurity Screen: In the past 2 months, have you been living in stable housing that you own, rent, or stay in as part of a household? Yes - Living in stable housing. Are you worried or concerned that in the next 2 months you may NOT have stable housing that you own, rent, or stay in as part of a household? No - Not worried about housing near future The [place] reports the following: Within the past 12 months, you worried whether your food would run out before you got money to buy more. Never true Within the past 12 months, the food you bought just didn't last and you didn't have money to get more. Never true Suicide Screen: C-SSRS Screening [place]-Suicide Severity Rating Scale (C-SSRS Screener) 1. Over the past month, have you wished you were or wished you could go to sleep and not wake up? No 2. Over the past month, have you had any actual thoughts of killing yourself? No 3. Over the past month, have you been thinking about how you might do this? Response not required due to responses to other questions. 4. Over the past month, have you had these thoughts and had some intention of acting on them? Response not required due to responses to other questions. 5. Over the past month, have you started to work out or worked out the details of how to kill yourself? Response not required due to responses to other questions. 6. If yes, at any time in the past month did you intend to carry out this plan? Response not required due to responses to other questions. 7. In your lifetime, have you ever done anything, started to do anything, or prepared to do anything to end your life (for example, collected pills, obtained a gun, gave away valuables, went to the roof but didn't jump)? No 8. If YES, was this within the past 3 months? Response not required due to responses to other questions. /orquidea/ ALBIN FARRELL PA-C STAFF PHYSICIAN MANAGER DRIVE Signed: 02/22/2024 15:51 ALBIN FARRELL
--- OUTSIDE RECORDS SUMMARY | 2024-06-21 00:04 | XMS_ITS ---
Author Name [facility] [place] Organization [place] Address [address] [place] [address] Care Team Providers Care Electrophysiology Technician Name Role Phone ALBIN FARRELL Primary Care Provider Unavailabl e Selected Encounter This section includes the information on record at [place] for the Encounter. Date/Time Encounter Type Encounter Description Reason Pro vider Source Feb 22, 2024 12:11 PM Outpatient Encounter PRIMARY CARE/MEDICINE IHE Encounter Template Text not used by [place] Plan of Treatment: Future Appointments (+ 6 months) and Future Tests (+/- 45 days) The Plan of Treatment section includes future care activities for the patient from all [place] treatmentfacilities. This section includes future appointments and future orders which are active, pending or scheduled. Future Appointments This section includes appointments that were scheduled to occur 6 months from the date of the Encounter, up to a maximum of 20 appointments. The data comes from all [place] treatment facilities. Appointment Date/Time Appointment Type Appointme nt Facility Name May 01, 2024 08:30 AM AMBULATORY - REHAB MEDICIN [facility] May 08, 2024 10:30 AM AMBULATORY - MEDICINE [facility] Jun 14, 2024 10:30 AM AMBULATORY - PSYCHIATRY SP [facility] Jun 18, 2024 02:30 PM AMBULATORY - REHAB MEDICIN [facility] [place] Jun 20, 2024 10:00 AM [facility] Jul 18, 2024 07:30 AM AMBULATORY - REHAB MEDICIN E [place] Jul 26, 2024 10:30 AM AMBULATORY - MEDICINE [place] Active, Pending, and Scheduled Orders This section includes a listing of several types of active, pending, and scheduled orders, including clinic medications orders, diagnostic test orders, procedure orders and consult orders; where the start date of the order is 45 days before the date of the Encounter or 45 days after the date of theEncounter. The data comes from all [place] treatment facilities. Test Date/Time Test Type Test Details Facility Name Feb 22, 2024 11:53 AM Consult Order COMMUNITY CARE-COLONOSCOPY DIAGNOSTIC Cons Senior Software Project Manager's Choice [place] Encounter Notes: All associated encounter notes This section contains the clinical notes associated to the Encounter. Date/Time Encounter Note(s) Provider Source Feb 22, 2024 12:11 PM ADMINISTRATIVE NOT E: LOCAL TITLE: ADMINISTRATIVE NOTE STANDARD TITLE: ADMINISTRATIVE NOTE DATE OF NOTE: FEB 22, 2024@12:11 ENTRY DATE: FEB 22, 2024@12:11:59 AUTHOR: PATSY HU EXP COSIGNER: URGENCY: STATUS: COMPLETED RECORDS REQUESTED FROM [facility]UROLOG[facility] DIRECTED /orquidea/ PATSY MOSLEY Signed: 02/22/2024 12:12 PATSY HU
--- OUTSIDE RECORDS SUMMARY | 2024-06-21 00:04 | XMS_ITS ---
Author Name [facility] [place] [place] Organization [place] Address [address] [place] [address] Care Team Providers Care Electromechanical Technologist Name Role Phone ALBIN FARRELL Primary Care Provider Unavailabl e Selected Encounter This section includes the information on record at [place] for the Encounter. Date/Time Encounter Type Encounter Description Reason Pro vider Source Feb 22, 2024 11:00 AM Outpatient Encounter EVENT (HISTORICAL) IHE Encounter [...] 01, 2024 08:30 AM [facility] May 08, 2024 10:30 AM [facility]UL[facility] - MEDICINE [facility] Jun 14, 2024 10:30 AM AMBULATORY - PSYCHIATRY SP [facility] Jun 18, 2024 02:30 PM AMBULATORY - REHAB MEDICIN E [place] Jun 20, 2024 10:00 AM [facility] Jul 18, 2024 07:30 AM AMBULATORY - REHAB MEDICIN E [place] Jul 26, 2024 10:30 AM AM[facility]ATORY - MEDICINE [facility] Active, Pending, and Scheduled Orders [...] AM Consult Order COMMUNITY CARE-COLONOSCOPY DIAGNOSTIC Cons Insulation Technician's Choice [place]
--- OUTSIDE RECORDS SUMMARY | 2024-06-21 00:04 | XMS_ITS | Encounter Summary ---
Author Name [facility] [place] Organization [place] Address [address] [place] [id number] Care Team Providers Care Auto Motor Mechanic Name Role Phone ALBIN FARRELL Primary Care Provider Unavailabl e Selected Encounter This section includes the information on record at [place] for the Encounter. Date/Time Encounter Type Encounter Description Reason Pro vider Source Apr 13, 2024 08:18 AM Outpatient Encounter TELEPHONE TRIAGE IHE Encounter Template Text not used by [place] Plan of Treatment: Future Appointments (+ 6 months) and Future Tests (+/- 45 days) The Plan of Treatment section includes future care activities for the patient from all [place] treatmentfacilities. This section includes future appointments and future orders which are active, pending or scheduled. Future Appointments This section includes appointments that were scheduled to occur 6 months from the date of the Encounter, up to a maximum of 20 appointments. The data comes from all [place] treatment facilities. Appointment Date/Time Appointment Type Appointme nt Facility Name May 01, 2024 08:30 AM AMBULATORY - RE[facility]AB MEDICIN [facility] May 08, 2024 10:30 AM [facility] Jun 14, 2024 10:30 AM AMBULATORY - PSYCHIATRY SP [facility] Jun 18, 2024 02:30 PM AMBULATORY - REHAB MEDICIN [place] Jun 20, 2024 10:00 AM [facility] Jul 18, 2024 07:30 AM AMBULATORY - REHAB MEDICIN E [place] Jul 26, 2024 10:30 AM AMBULATORY - MEDICINE [facility] Active, Pending, and Scheduled Orders This section includes a listing of several types of active, pending, and scheduled orders, including clinic medications orders, diagnostic test orders, procedure orders and consult orders; where the start date of the order is 45 days before the date of the Encounter or 45 days after the date of theEncounter. The data comes from all [place] treatment facilities. Test Date/Time Test Type Test Details Facility Name Apr 23, 2024 12:00 AM Laboratory - Chemi stry Order TSH BLOOD (SST-SERUM) [facility] May 08, 2024 11:13 AM Consult Order HOME SLEEP STUDY NOX/SPOPC OUTPT Cons Group Insurance Specialist's Choice [place] May 16, 2024 12:00 AM Laboratory - Chemi stry Order TESTOSTERONE-FREE (qu) BLOOD (RED-PLAIN) SERUM [facility] May 16, 2024 12:00 AM Laboratory - Chemi stry Order TESTOSTERONE, TOTAL (WHV) BLOOD (SST-GOLD) SERUM [facility] May 23, 2024 12:00 AM Laboratory - Chemi stry Order TSH BLOOD (SST-SERUM) [facility] May 23, 2024 12:00 AM Laboratory - Chemi stry Order TESTOSTERONE, TOTAL (WHV) BLOOD (SST-GOLD) SERUM [facility] May 23, 2024 12:00 AM Laboratory - Chemi stry Order TESTOSTERONE-FREE (qu) BLOOD (RED-PLAIN) SERUM [facility] May 23, 2024 12:00 AM Laboratory - Chemi stry Order FSH BLOOD (RED-PLAIN) SERUM [facility] May 23, 2024 12:00 AM Laboratory - Chemi stry Order LH BLOOD (SST-SERUM) [facility] Lab Results: +/- 30 days of the encounter This section includes the Chemistry and Hematology Lab Results on record with [place] for the patient. Radiology Reports and Pathology Reports are provided separately, in subsequent sections. Lab Results This section contains the Chemistry/Hematology Results that were resulted 30 days before or 30 daysafter the date of the Encounter. Date/Time Source Result Type Result - Unit Interpretation Reference Range Comment Apr 13, 2024 08:40 AM [place] URIC ACID Specimen Type: SERUM No comment entered. Ordering Provider: ALBIN FARRELL Report Released Date/Time: Feb 22, 2024 01:07 PM Reporting Lab: [place] [facility] [address] [place] [address] Performing Lab: [address] [address] URIC ACID 6.5 mg/dL 3.5-7.2 Apr 13, 2024 08:40 AM [place] TSH Specimen Type: SERUM No comment entered. Ordering Provider: ALBIN FARRELL Report Released Date/Time: Feb 22, 2024 01:07 PM Reporting Lab: [address] [address] Performing Lab: [address] [address] TSH 1.05 u[IU]/mL 0.35-5.00 Apr 13, 2024 08:40 AM [place] URINALYSIS Specimen Type: URINE Comment: If Glucose = >500 and Ketones are positive, please alert the Physician. Ordering Provider: ALBIN FARRELL Report Released Date/Time: Feb 22, 2024 01:07 PM Reporting Lab: [address] [address] Performing Lab: [address] [address] UA COLOR Light-Yellow Yellow UA APPEARANCE Clear Clear UA GLUCOSE Normal mg/dL Negative UA KETONES NEGATIVE mg/dL Negative UA BLOOD NEGATIVE mg/dL Negative UA PROTEIN NEGATIVE mg/dL Negative UA NITRITE NEGATIVE mg/dL Negative UA BILIRUBIN NEGATIVE mg/dL Negative UA SPECIFIC GRAVITY 1.024 H 1.016-1.022 UA pH 6.0 5.0-9.0 UA UROBILINOGEN Normal mg/dL <2.0 UA LEUKOCYTE NEGATIVE Negative Apr 13, 2024 08:40 AM [place] MICROALBUMIN CREATININE RATIO PANEL Spe cimen Type: URINE No comment entered. Ordering Provider: ALBIN FARRELL Report Released Date/Time: Feb 22, 2024 01:07 PM Reporting Lab: [address] [address] Performing Lab: [address] [address] MICROALBUMIN/C REATININE RATIO 5.7 mg/g 0-29.9 MICROALBUMIN,Q UANTITATIVE 0.8 mg/dL RR UNAVAIL CREATININE URINE 140.93 mg/dL Apr 13, 2024 08:40 AM [place] HEMOGLOBIN A1C PANEL Specimen Type: BLOOD Comment: [...] Feb 22, 2024 01:07 PM Reporting Lab: [facility] [address] [address] Performing [facility]: [facility] [address] HEMOGLOBIN A1C 4.7 4.0-5.6 Apr 13, 2024 08:40 AM [place] FERRITIN Specimen Type: SERUM No comment entered. Ordering Provider: ALBIN FARRELL Report Released Date/Time: Feb 22, 2024 01:07 PM Reporting Lab: [facility] [place] [facility] [address] [facility] [address] Performing Lab: [facility] [address] [address] FERRITIN 91 ng/mL 20-300 Apr 13, 2024 08:40 AM [place] VITAMIN D (25-OH) Specimen Type: SERUM No comment entered. Ordering Provider: ALBIN FARRELL Report Released Date/Time: Feb 22, 2024 01:07 PM Reporting Lab: [facility] [place] [address] [address] Performing [facility]: [facility] [address] [address] VITAMIN D (25-OH) 41 ng/mL 20-50 Apr 13, 2024 08:40 AM [place] VITAMIN B12 Specimen Type: SERUM No comment entered. Ordering Provider: ALBIN FARRELL Report Released Date/Time: Feb 22, 2024 01:07 PM Reporting Lab: [facility] [address] [address] Performing Lab: [place] [address] [address] VITAMIN B12 393 pg/mL 200-900 Apr 13, 2024 08:40 AM [place] CBC AND DIFF (AUTO) Specimen Type: BLOOD No comment entered. Ordering Provider: ALBIN FARRELL Report Released Date/Time: Feb 22, 2024 01:07 PM Reporting Lab: [address] [address] Performing Lab: [address] [address] WBC 4.94 10*3/uL 4.50-11.00 RBC 4.96 10*6/uL [...] 10*3/uL 0.00-0.00 Apr 13, 2024 08:40 AM [place] PSA Specimen Type: SERUM No comment entered. Ordering Provider: LABIN FARRELL Report Released Date/Time: Feb 22, 2024 01:07 PM Reporting Lab: [facility] [address] [facility] [address] Performing Lab: [facility] [address] [address] PSA 0.46 ng/mL 0.00-4.00 Apr 13, 2024 08:40 AM [place] BASIC METABOLIC PANEL (fasting) Specime n Type: SERUM No comment entered. Ordering Provider: ALBIN FARRELL Report Released Date/Time: Feb 22, 2024 01:07 PM Reporting [facility]: [facility] [address] [address] Performing Lab: [facility] [address] [address] UREA NITROGEN 18 mg/dL 7-25 GLUCOSE 85 mg/dL 65-100 SODIUM 139 mmol/L 135-145 POTASSIUM 4.5 mmol/L 3.5-5.0 CHLORIDE 106 mmol/L 100-110 CO2 23 meq/L 20-30 CREATININE, Serum 1.03 mg/dL 0.50-1.40 eGFR(CKD-EPI 2020) >90 mL/min >60 Apr 13, 2024 08:40 AM [place] LIVER FUNCTION Specimen Type: SERUM No comment entered. Ordering Provider: ALBIN FARRELL Report Released Date/Time: Feb 22, 2024 01:07 PM Reporting Lab: [address] [address] Performing Lab: [address] [address] PROTEIN,TOTAL 7.2 g/dL 6.0-8.3 ALBUMIN 4.4 g/dL 3.5-5.0 ALKALINE PHOSPHATASE 38 U/L L 40-150 AST 21 U/L 5-34 ALT 28 U/L BILIRUBIN, TOTAL 0.4 mg/dL 0.2-1.2 Apr 13, 2024 08:40 AM [place] LIPID PANEL FASTING Specimen Type: SERUM No comment entered. Ordering Provider: ALBIN FARRELL Report Released Date/Time: Feb 22, 2024 01:07 PM Reporting [facility]: [facility] [address] [address] Performing Lab: [address] [address] CHOLESTEROL 178 mg/dL TRIGLYCERIDE 69 mg/dL 0-150 LDL calculated 112 mg/dL 0-129 CHOL/HDL 3.4 HDL CHOLESTEROL 52 mg/dL 40-60 Apr 13, 2024 08:40 AM [place] CALCIUM Specimen Type: SERUM No comment entered. Ordering Provider: ALBIN FARRELL Report Released Date/Time: Feb 22, 2024 01:07 PM Reporting Lab: [address] [address] Performing Lab: [address] [address] CALCIUM 9.5 mg/dL 8.5-10.2 Radiology Reports: +/- [...] the Encounter. The data comes from all [place] treatment facilities. Date/Time Radiology Report Provider Source Apr 16, 2024 08:53 AM SPINE LUMBOSACRAL MIN 2 VIEWS: KEITH PASCUAL [id number] -1990 M Exm Date: APR 16, 2024@08:53 Req Phys: ALBIN FARRELL Pat Loc: CWM/SO/PACT 3 WH (Req'g Loc) Img Loc: [facility] Service: [place] [address] (Case 48 COMPLETE) SPINE LUMBOSACRAL MIN 2 VIEWS (RAD Detailed) CPT:21262 Reason for Study: lbp and thoracic back Clinical History: seems purely muscular no neurologic sx Report Status: Verified Date Reported: APR 16, 2024 Date Verified: APR 16, 2024 Screen Stretcher E-Sig:/ES/MANISHA GARCIA JR Report: Study: AP and [...] Primary Interpreting Staff: MANISHA GARCIA JR, Radiologist (Screen Stretcher) /MANISHA BRANDT JR [facility] Apr 16, 2024 08:53 AM SPINE THORACIC, 2 VIEWS: KEITH PASCUAL [place] [id number] -1990 M Exm Date: APR 16, 2024@08:53 Req Phys: ALBIN FARRELL Loc: CWM/SO/PACT 3 WH (Req'g Loc) Img Loc: [facility] Service: [place] [address] (Case 49 COMPLETE) SPINE THORACIC, 2 VIEWS (RAD Detailed) CPT:87427 Reason for Study: lbp and thoracic back Clinical History: seems purely muscular no neurologic sx Report Status: Verified Date Reported: APR 16, 2024 Date Verified: APR 16, 2024 Screen Stretcher E-Sig:/ES/MANISHA GARCIA JR Report: Study: AP and [...] Primary Interpreting Staff: MANISHA GARCIA JR, Radiologist (Screen Stretcher) /MANISHA BRANDT JR [facility] Encounter Notes: All associated encounter notes This section contains the clinical notes associated to the Encounter. Date/Time Encounter Note(s) Provider Source Apr 13, 2024 08:18 AM RN PROGRESS NOTE: LOCAL TITLE: CCC: CLINICAL TRIAGE STANDARD TITLE: RN PROGRESS NOTE DATE OF NOTE: APR 13, 2024@08:18:23 ENTRY DATE: APR 13, 2024@08:18:24 AUTHOR: AMINA CONTRERAS COSIGNER: URGENCY: STATUS: COMPLETED Patient Demographics Patient Name: KEITH PASCUAL Patient Primary Address: [address] [place] [id number] Patient Primary Phone: [phone] Patient : 1990 Patient Age: 33 Current Location: [place] Call Back Number: Caller/Recipient Relation to Patient: Self Emergency Contact: MELISA ANKUR Triage Summary Chief Complaint: Sinus Congestion System WHEN: Self-care Nurse's Recommendation / WHEN: Other Nurse's Other / WHEN: 1 week System WHERE: Home Nurse's Recommendation / WHERE: Clinic/[facility] WHEN/WHERE modifier reason: Other Other - Modifiers: severity of symptoms Nursing Plan and Disposition Referred Patient for In-Person Appt Transferred patient to Sched & Admin-Apt Other course(s) of action Generated msg to PACT/Provider Provided guidance for worsening symptoms: *Caller/Patient* advised to call facilities [place] Clinical Contact Center or seek immediate medical attention for new or worsening symptoms Nurse Summary Nurse Summary: . [place] calls reporting sinus congestion x 1 yr. Also reports bilat shoulder and lower back pain x 10+ yrs. Advised F2F within 1 week with PCP. Provided in network UC option if no appt available or new/worsening symptoms. Advised of [facility] Triage 24.7 availability. [place] verbalizes understanding and agrees with plan. . . Clinical Contact Center Codes Clinic/Location: V1 CWM PHONE [facility] RN Decision Support System Output: Triage Complete Triage Date: 04/13/2024, 08:14 AM Triage Note: Decision Support Tool Used: [facility] Phone Triage 13 Apr 2024 12:12:44 +0000 [facility] Demographics 33 y/o Male Results CC: Sinus Congestion Software suggested: Self-care Software suggested follow-up location: Home, [facility] Values and Measures Duration of CC: 1 Years Positive Responses HPI: headache, moderate to severe HPI: nasal congestion, duration longer than 2 days VS: temperature not taken Negative Responses Denies: HPI: breathing more rapidly than usual Denies: HPI: cough, new or worsening Denies: HPI: eye pruritus, eye tearing Denies: HPI: fever, subjective Denies: HPI: myalgias Denies: HPI: neck pain, elicited by neck flexion Denies: HPI: pain, maxillary or frontal sinuses Denies: HPI: rash, petechial Denies: HPI: rhinorrhea, yellow or brown Denies: HPI: sneezing, episodic attacks Denies: HPI: sore throat Denies: HPI: symptoms similar to past allergic rhinitis Denies: HPI: vomiting Denies: HPI: weakness, fatigue, more than usual Denies: HPI: wheezing, new or worsening Denies: MEDS: antibiotic IMPORTANT: This note was created by [facility] Clinical Contact Center staff. Please do not alert the staff member by adding them as a signer for future communications. Alerts are not monitored by this user. /orquidea/ AMINA CONTRERAS VISHeather 1 [facility] surgeon partner Signed: 04/13/2024 08:18 Receipt Acknowledged By: 04/13/2024 08:56 /es/ Kary La RN Registered Nurse (RN) 04/16/2024 09:14 /orquidea/ GABY CORDOBA LPN LICENSED PRACTICAL NURSE AMINA CONTRERAS [place] [facility]
--- OUTSIDE RECORDS SUMMARY | 2024-06-21 00:04 | XMS_ITS | Encounter Summary ---
Author Name [facility] [place] Organization [facility] [place] [place] Address [address] [place] [address] Care Team Providers Care Fell Cutter Name Role Phone ALBIN FARRELL Primary Care Provider Unavailabl e Selected Encounter This section includes the information on record at [place] for the Encounter. Date/Time Encounter Type Encounter Description Reason Pro vider Source Mar 21, 2024 08:39 AM Outpatient Encounter TELEPHONE PRIMARY CARE IHE Encounter Template Text not used by [place] Plan of Treatment: Future Appointments (+ 6 months) and Future Tests (+/- 45 days) The Plan of Treatment section includes future care activities for the patient from all [place] treatmentfacilities. This section includes future appointments and future orders which are active, pending or scheduled. Future Appointments This section includes appointments that were scheduled to occur 6 months from the date of the Encounter, up to a maximum of 20 appointments. The data comes from all [place] treatment facilities. Appointment Date/Time Appointment Type Appointme nt Facility Name May 01, 2024 08:30 AM [facility] May 08, 2024 10:30 AM [facility] Jun 14, 2024 10:30 AM AMBULATORY - PSYCHIATRY SP [facility] Jun 18, 2024 02:30 PM AMBULATORY - REHAB MEDICIN [facility] [place] Jun 20, 2024 10:00 AM [facility] - NONE [facility] Jul 18, 2024 07:30 AM AMBULATORY - REHAB MEDICIN E [place] Jul 26, 2024 10:30 AM AMBULATORY - MEDICINE [facility] Active, Pending, and Scheduled Orders This section includes a listing of several types of active, pending, and scheduled orders, including clinic medications orders, diagnostic test orders, procedure orders and consult orders; where the start date of the order is 45 days before the date of the Encounter or 45 days after the date of theEncounter. The data comes from all [place] treatment facilities. Test Date/Time Test Type Test Details Facility Name Feb 22, 2024 11:53 AM Consult Order COMMUNITY CARE-COLONOSCOPY DIAGNOSTIC Cons Sunglass Clip Attacher's Choice [place] Apr 23, 2024 12:00 AM Laboratory - Chemi stry Order TSH BLOOD (SST-SERUM) [facility] Lab Results: +/- 30 days of the encounter This section includes the Chemistry and Hematology Lab Results on record with [place] for the patient. Radiology Reports and Pathology Reports are provided separately, in subsequent sections. Lab Results This section contains the Chemistry/Hematology Results that were resulted 30 days before or 30 daysafter the date of the Encounter. Date/Time Source Result Type Result - Unit Interpretation Reference Range Comment Apr 13, 2024 08:40 AM [place] URIC ACID Specimen Type: SERUM No comment entered. Ordering Provider: ALBIN FARRELL Report Released Date/Time: Feb 22, 2024 01:07 PM Reporting Lab: [facility] [address] [facility] [address] Performing Lab: [address] [address] URIC ACID 6.5 mg/dL 3.5-7.2 Apr 13, 2024 08:40 AM [place] TSH Specimen Type: SERUM No comment entered. Ordering Provider: ALBIN FARRELL Report Released Date/Time: Feb 22, 2024 01:07 PM Reporting Lab: [facility] [address] [facility] [address] Performing Lab: [address] [address] TSH 1.05 u[IU]/mL 0.35-5.00 Apr 13, 2024 08:40 AM [place] URINALYSIS Specimen Type: URINE Comment: If Glucose = >500 and Ketones are positive, please alert the Physician. Ordering Provider: ALBIN FARRELL Report Released Date/Time: Feb 22, 2024 01:07 PM Reporting Lab: [address] [address] Performing Lab: [address] [address] UA COLOR Light-Yellow Yellow UA APPEARANCE Clear Clear UA GLUCOSE Normal mg/dL Negative UA KETONES NEGATIVE mg/dL Negative UA BLOOD NEGATIVE mg/dL Negative UA PROTEIN NEGATIVE mg/dL Negative UA NITRITE NEGATIVE mg/dL Negative UA BILIRUBIN NEGATIVE mg/dL Negative UA SPECIFIC GRAVITY 1.024 H 1.016-1.022 UA pH 6.0 5.0-9.0 UA UROBILINOGEN Normal mg/dL <2.0 UA LEUKOCYTE NEGATIVE Negative Apr 13, 2024 08:40 AM [place] MICROALBUMIN CREATININE RATIO PANEL Spe cimen Type: URINE No comment entered. Ordering Provider: ALBIN FARRELL Report Released Date/Time: Feb 22, 2024 01:07 PM Reporting Lab: [address] [address] Performing Lab: [address] [address] MICROALBUMIN/C REATININE RATIO 5.7 mg/g 0-29.9 MICROALBUMIN,Q UANTITATIVE 0.8 mg/dL RR UNAVAIL CREATININE URINE 140.93 mg/dL Apr 13, 2024 08:40 AM [place] HEMOGLOBIN A1C PANEL Specimen Type: BLOOD Comment: [...] Feb 22, 2024 01:07 PM Reporting Lab: [address] [address] Performing Lab: [address] [address] HEMOGLOBIN A1C 4.7 4.0-5.6 Apr 13, 2024 08:40 AM [place] FERRITIN Specimen Type: SERUM No comment entered. Ordering Provider: ALBIN FARRELL Report Released Date/Time: Feb 22, 2024 01:07 PM Reporting Lab: [facility] [address] [address] Performing Lab: [address] [address] FERRITIN 91 ng/mL 20-300 Apr 13, 2024 08:40 AM [place] VITAMIN D (25-OH) Specimen Type: SERUM No comment entered. Ordering Provider: ALBIN FARRELL Report Released Date/Time: Feb 22, 2024 01:07 PM Reporting Lab: [address] [address] Performing Lab: [address] [address] VITAMIN D (25-OH) 41 ng/mL 20-50 Apr 13, 2024 08:40 AM [place] VITAMIN B12 Specimen Type: SERUM No comment entered. Ordering Provider: ALBIN FARRELL Report Released Date/Time: Feb 22, 2024 01:07 PM Reporting Lab: [facility] [address] [address] Performing Lab: [address] [address] VITAMIN B12 393 pg/mL 200-900 Apr 13, 2024 08:40 AM [place] CBC AND DIFF (AUTO) Specimen Type: BLOOD No comment entered. Ordering Provider: ALBIN FARRELL Report Released Date/Time: Feb 22, 2024 01:07 PM Reporting Lab: [facility] [address] [address] Performing Lab: [address] [address] WBC 4.94 10*3/uL 4.50-11.00 RBC 4.96 10*6/uL [...] 10*3/uL 0.00-0.00 Apr 13, 2024 08:40 AM [place] PSA Specimen Type: SERUM No comment entered. Ordering Provider: ALBIN FARRELL Report Released Date/Time: Feb 22, 2024 01:07 PM Reporting Lab: [address] [address] Performing Lab: [address] [address] PSA 0.46 ng/mL 0.00-4.00 Apr 13, 2024 08:40 AM [place] BASIC METABOLIC PANEL (fasting) Specime n Type: SERUM No comment entered. Ordering Provider: ALBIN FARRELL Report Released Date/Time: Feb 22, 2024 01:07 PM Reporting Lab: [address] [address] Performing Lab: [address] [address] UREA NITROGEN 18 mg/dL 7-25 GLUCOSE 85 mg/dL 65-100 SODIUM 139 mmol/L 135-145 POTASSIUM 4.5 mmol/L 3.5-5.0 CHLORIDE 106 mmol/L 100-110 CO2 23 meq/L 20-30 CREATININE, Serum 1.03 mg/dL 0.50-1.40 eGFR(CKD-EPI 2020) >90 mL/min >60 Apr 13, 2024 08:40 AM [place] LIVER FUNCTION Specimen Type: SERUM No comment entered. Ordering Provider: ALBIN FARRELL Report Released Date/Time: Feb 22, 2024 01:07 PM Reporting Lab: [address] [address] Performing Lab: [address] [address] PROTEIN,TOTAL 7.2 g/dL 6.0-8.3 ALBUMIN 4.4 g/dL 3.5-5.0 ALKALINE PHOSPHATASE 38 U/L L 40-150 AST 21 U/L 5-34 ALT 28 U/L BILIRUBIN, TOTAL 0.4 mg/dL 0.2-1.2 Apr 13, 2024 08:40 AM [place] LIPID PANEL FASTING Specimen Type: SERUM No comment entered. Ordering Provider: ALBIN FARRELL Report Released Date/Time: Feb 22, 2024 01:07 PM Reporting Lab: [address] [address] Performing Lab: [address] [address] CHOLESTEROL 178 mg/dL TRIGLYCERIDE 69 mg/dL 0-150 LDL calculated 112 mg/dL 0-129 CHOL/HDL 3.4 HDL CHOLESTEROL 52 mg/dL 40-60 Apr 13, 2024 08:40 AM [place] CALCIUM Specimen Type: SERUM No comment entered. Ordering Provider: ALBIN FARRELL Report Released Date/Time: Feb 22, 2024 01:07 PM Reporting Lab: [address] [address] Performing Lab: [address] [address] CALCIUM 9.5 mg/dL 8.5-10.2 Radiology Reports: +/- [...] the Encounter. The data comes from all [place] treatment facilities. Date/Time Radiology Report Provider Source Apr 16, 2024 08:53 AM SPINE LUMBOSACRAL MIN 2 VIEWS: KEITH PASCUAL [facility] [id number] -1990 M Exm Date: APR 16, 2024@08:53 Req Phys: ALBIN FARRELL Loc: CWM/SO/PACT 3 WH (Req'g Loc) Img Loc: [facility]/BUILDING 1 Service: [place] [address] (Case 48 COMPLETE) SPINE LUMBOSACRAL MIN 2 VIEWS (RAD Detailed) CPT:30495 Reason for Study: lbp and thoracic back Clinical History: seems purely muscular no neurologic sx Report Status: Verified Date Reported: APR 16, 2024 Date Verified: APR 16, 2024 Learning Support Teacher E-Sig:/ES/MANISHA GARCIA JR Report: Study: AP and [...] Primary Interpreting Staff: MANISHA GARCIA JR, Radiologist (Learning Support Teacher) /MANISHA BRANDT JR [facility] Apr 16, 2024 08:53 AM SPINE THORACIC, 2 V[facility]WS: [facility] [id number] -1990 M Exm Date: APR 16, 2024@08:53 Req Phys: ALBIN FARRELL Loc: CWM/SO/PACT 3 WH (Req'g Loc) Img Loc: [facility]/BUILDING 1 Service: [place] [address] (Case 49 COMPLETE) SPINE THORACIC, 2 VIEWS (RAD Detailed) CPT:37551 Reason for Study: lbp and thoracic back Clinical History: seems purely muscular no neurologic sx Report Status: Verified Date Reported: APR 16, 2024 Date Verified: APR 16, 2024 Learning Support Teacher E-Sig:/ES/MANISHA GARCIA JR Report: Study: AP and [...] Primary Interpreting Staff: MANISHA GARCIA JR, Radiologist (Learning Support Teacher) /MANISHA BRANDT JR [facility] Encounter Notes: All associated encounter notes This section contains the clinical notes associated to the Encounter. Date/Time Encounter Note(s) Provider Source Mar 21, 2024 08:39 AM LETTERS: LOCAL TITLE: PATIENT LETTER (B) STANDARD TITLE: LETTERS DATE OF NOTE: MAR 21, 2024@08:39 ENTRY DATE: MAR 21, 2024@08:39:31 AUTHOR: LEEROY ARNETT COSIGNER: URGENCY: STATUS: COMPLETED == [facility] [address] [place] [address] [phone] * [phone] * = Date: 03/21/24 Dear : Keith Thank you for choosing the Department of [facility] ([place]) [facility]. The Whole Health Program aims to support you in pursuing what matters most to you, and includes services that support your values and overall wellness. This includes the following offerings: * Yoga * Acupuncture * [facility] Acupuncture for Acute Pain (offered weekly; drop-in or scheduled) * Individual health coaching * Package Crimper * Biofeedback for Hypertension and Anxiety * Guided Imagery Group * Meditation Group * Cancer Support Group * Stress Management Group ( Stress Less ) The following require no referral from a provider, and can be initiated by you at any time: * Yoga * Meditation * [facility] Acupuncture * Cancer Support Group * Individual Health Coaching * Stress Management Group ( Stress Less ) If interested in any of the above offerings, please reach out to the Whole Health Team at [phone]. [phone]. To schedule consult-required services, or if you would like more information regarding VA health care benefits, please call toll free at [phone]), visit the VA website at [email or web address].gov/healthbenefit [email or web address], or contact your local [facility]. If you have any questions, please do not hesitate to contact the Department of 's Affairs call center. Sincerely. Dr. Susu Ivan Whole Health and Integrated Hard Tile Setter Apprentice [facility] Direct LEEROY ARNETT [facility]
--- OUTSIDE RECORDS SUMMARY | 2024-06-21 00:05 | XMS_ITS | Encounter Summary ---
Author Name [facility] [place] Organization [facility] [place] Address [address] [place] [id number] Care Team Providers Care Licensed Reactor Operator Name Role Phone ALBIN FARRELL Primary Care Provider [facility] Selected Encounter This section includes the information on record at [place] for the Encounter. Date/Time Encounter Type Encounter Description Reason Provider Source Jun 14, 2024 10:30 AM OFF/OP EST NOVEMBER X REQ PHY/Q [facility] - IND ICD-10-CM Z71.89 Other specified counseling JASON WHITNEY Encounter Template Text not used by [place] Assessments - Encounter Diagnoses This section includes the primary and secondary diagnoses documented for the Encounter. Date/Time Primary/Secondary Diagnosis Diagnosis Name Provider Source Jun 14, 2024 04:13 PM PRIMARY Other specified counseling JASON WHITNEY Plan of Treatment: Future Appointments (+ 6 months) and Future Tests (+/- 45 days) The Plan of Treatment section includes future care activities for the patient from all [place] treatmentfacilities. This section includes future appointments and future orders which are active, pending or scheduled. Future Appointments This section includes appointments that were scheduled to occur 6 months from the date of the Encounter, up to a maximum of 20 appointments. The data comes from all [place] treatment facilities. Appointment Date/Time Appointment Type Appointme nt Facility Name Jun 18, 2024 02:30 PM AMBULATORY - REHAB [facility] Jun 20, 2024 10:00 AM AMBULATORY - NONE [place] [facility] Jul 18, 2024 07:30 AM AMBULATORY - REHAB [facility]ICIN [facility] Jul 26, 2024 10:30 AM AMBULATORY - MEDICINE [facility] Active, Pending, and Scheduled Orders This section includes a listing of several types of active, pending, and scheduled orders, including clinic medications orders, diagnostic test orders, procedure orders and consult orders; where the start date of the order is 45 days before the date of the Encounter or 45 days after the date of theEncounter. The data comes from all [place] treatment facilities. Test Date/Time Test Type Test Details Facility Name May 08, 2024 11:13 AM Consult Order HOME SLEEP STUDY NOX/SPOPC OUTPT Cons Page Technician's [facility] May 16, 2024 12:00 AM Laboratory - Chemi stry Order TESTOSTERONE-FREE (qu) BLOOD (RED-PLAIN) SERUM [facility] May 16, 2024 12:00 AM Laboratory - Chemi stry Order TESTOSTERONE, TOTAL (WHV) BLOOD (SST-GOLD) SERUM [facility] May 23, 2024 12:00 AM Laboratory - Chemi stry Order TSH BLOOD (SST-SERUM) [facility] May 23, 2024 12:00 AM Laboratory - Chemi stry Order TESTOSTERONE, TOTAL (WHV) BLOOD (SST-GOLD) SERUM [facility] May 23, 2024 12:00 AM Laboratory - Chemi stry Order TESTOSTERONE-FREE (qu) BLOOD (RED-PLAIN) SERUM [facility] May 23, 2024 12:00 AM Laboratory - Chemi stry Order FSH BLOOD (RED-PLAIN) SERUM [facility] May 23, 2024 12:00 AM Laboratory - Chemi stry Order LH BLOOD (SST-SERUM) [facility] Jun 14, 2024 03:35 PM Consult Order COMMUNITY CARE- PSYCHOTHERAPY Cons Page Technician's [facility] Lab Results: +/- 30 days of the encounter This section includes the Chemistry and Hematology Lab Results on record with [place] for the patient. Radiology Reports and Pathology Reports are provided separately, in subsequent sections. Lab Results This section contains the Chemistry/Hematology Results that were resulted 30 days before or 30 daysafter the date of the Encounter. Date/Time Source Result Type Result - Unit Interpretation Reference Range Comment Jun 14, 2024 10:17 AM [facility] TESTOSTERONE-FREE (qu) Specimen Type: SERUM Comment: The concentration of free testosterone is derived from a mathematical model using total testosterone by LCMSMS, sex hormone binding globulin and albumin. This test was developed and its analytical performance characteristics have been determined by [facility] [place], [place]. It has not been cleared or approved by the U.S. Food and Drug Administration. This assay has been validated pursuant to the CLIA regulations and is used for clinical purposes. Test Performed by [facility], [facility] [place], [address] [address], [place] M.D., Ph.D., Director of Laboratories , CLIA [id number] TEST PERFORMED AT: , Ordering Provider: ALBIN FARRELL Report Released Date/Time: May 08, 2024 11:11 AM Reporting Lab: [address] [address] Performing Lab: [facility] [address] [address] TESTOSTER ONE-FREE (qu) 75.3 pg/mL 46.0-224.0 Jun 14, 2024 10:17 AM [facility] TESTOSTERONE, TOTAL (WHV) Specimen Type : SERUM No comment entered. Ordering Provider: ALBIN FARRELL Report Released Date/Time: May 08, 2024 11:11 AM Reporting Lab: [address] [address] Performing Lab: [facility] [address] [facility] [address] TESTOSTER ONE, TOTAL (WHV) 303.02 ng/dL 220.00-892. 00 Jun 14, 2024 10:17 AM [facility] LH Specimen Type: SERUM No comment entered. Ordering Provider: ALBIN FARRELL Report Released Date/Time: May 08, 2024 11:11 AM Reporting Lab: [facility] [address] [facility] [address] Performing Lab: [facility] [address] [facility] [address] LH 2.51 1-9 Jun 14, 2024 10:17 AM [facility] FSH Specimen Type: SERUM No comment entered. Ordering Provider: ALBIN FARRELL Report Released Date/Time: May 08, 2024 11:11 AM Reporting Lab: [facility] [address] [facility] [address] Performing Lab: [facility] [place] [facility] [address] [facility] [address] FSH 2.67 1-19 Jun 14, 2024 10:17 AM [facility] PSA Specimen Type: SERUM No comment entered. Ordering Provider: ALBIN FARRELL Report Released Date/Time: May 08, 2024 11:11 AM Reporting Lab: [place] [facility] [place] [facility] [address] [facility] [address] Performing Lab: [facility] [address] [facility] [address] PSA 0.48 ng/mL 0.00-4.00 Jun 14, 2024 10:17 AM [facility] PTH INTACT Specimen Type: SERUM No comment entered. Ordering Provider: ALBIN FARRELL Report Released Date/Time: May 08, 2024 11:11 AM Reporting Lab: [place] [facility] [place] [facility] [address] [facility] [address] Performing Lab: [place] [facility] [address] [facility] [address] PTH INTACT 57.4 pg/mL 8.7-77.1 Social History: Smoking Status (Most current) and Tobacco Use (All prior to encounter date) This section includes the most current, and the historical, smoking and tobacco- related health factors from the [place] facility where the Encounter took place. Current Smoking Status This section includes the most current smoking, or tobacco-related health factor, from the [place] facility where the Encounter took place. Date/Time Current Smoking Status Comment Denisa davis Feb 22, 2024 11:00 AM [place]-TOBACCO NEVER USED [facility] Encounter Notes: All associated encounter notes This section contains the clinical notes associated to the Encounter. Date/Time Encounter Note(s) Provider Source Jun 14, 2024 03:40 PM SOCIAL WORK NOTE: LOCAL TITLE: SOCIAL WORK NOTE STANDARD TITLE: SOCIAL WORK NOTE DATE OF NOTE: JUN 14, 2024@15:40 ENTRY DATE: JUN 14, 2024@15:40:11 AUTHOR: CHELO,JASON O EXP COSIGNER: URGENCY: STATUS: COMPLETED is seen at his initiation. 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 Some of his deployments have been to [place], [place]. He was not in combat per se but he experienced difficult situations. 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 Gaby's parents and his have noticed that he is different since returning from his deployments. He notices that he is more anxious, irritable at times, I sometimes just don't feel comfortable here, that I don't fit in. Gaby has met w a [employer] officer and has filed some claims for medical problems- back, knees. He intends to also file a claim for PTSD. He would like to meet w a therapist to help him w his anxiety. It was explained there is a [facility], he is accepting of a CC referral- consult placed. Gaby was cooperative, pleasant, able to explain himself well, somewhat anxious. He was given this worker's direct #, he will call if needed. /orquidea/ MORA Velez DIP TUBE ASSEMBLER MACHINE Signed: 06/14/2024 16:13 JASON WHITNEY [facility]
--- OUTSIDE RECORDS SUMMARY | 2024-06-21 00:05 | XMS_ITS | Encounter Summary ---
Author Name [facility] ([place]) Organization [facility] of [facility] ([place]) Address [address] [place] [address] Care Team Providers Care Gasket Supervisor Name Role Phone ALBIN FARRELL Primary Care Provider Unavailabl e Selected Encounter This section includes the information on record at [place] for the Encounter. Date/Time Encounter Type Encounter Description Reason Pro vider Source Jun 14, 2024 10:24 AM Outpatient Encounter PRIMARY CARE/MEDICINE IHE Encounter [...] 18, 2024 02:30 PM AMBULATORY - REHAB [facility] Jun 20, 2024 10:00 AM AMBULATORY - NONE [facility] Jul 18, 2024 07:30 AM AMBULATORY - REHAB [facility] [place] Jul 26, 2024 10:30 AM AMBULATORY - [...] of theEncounter. The data comes from all [place] treatment facilities. Test Date/Time Test Type Test Details Facility Name May 08, 2024 11:13 AM Consult Order HOME SLEEP STUDY NOX/SPOPC OUTPT Cons Benzene Still [facility] May 16, 2024 12:00 AM Laboratory - Chemi stry Order TESTOSTERONE-FREE (qu) BLOOD (RED-PLAIN) [facility] May 16, 2024 12:00 AM Laboratory - Chemi stry Order TESTOSTERONE, TOTAL (WHV) BLOOD (SST-GOLD) [facility] May 23, 2024 12:00 AM Laboratory - Chemi stry Order TSH BLOOD (SST-SERUM) [facility] May 23, 2024 12:00 AM Laboratory - Chemi stry Order TESTOSTERONE, TOTAL (WHV) BLOOD (SST-GOLD) [facility] May 23, 2024 12:00 AM Laboratory - Chemi stry Order TESTOSTERONE-FREE (qu) BLOOD (RED-PLAIN) [facility] May 23, 2024 12:00 AM Laboratory - Chemi stry Order FSH BLOOD (RED-PLAIN) [facility] May 23, 2024 12:00 AM Laboratory - Chemi stry Order LH BLOOD (SST-SERUM) [facility] Jun 14, 2024 03:35 PM Consult Order [facility] Cons Benzene Still [facility] Lab Results: +/- 30 days of the encounter This section includes the Chemistry and Hematology Lab Results on record with [place] for the patient. Radiology Reports and Pathology Reports are provided separately, in subsequent sections. Lab Results This section contains the Chemistry/Hematology Results that were resulted 30 days before or 30 daysafter the date of the Encounter. Date/Time Source Result Type Result - Unit Interpretation Reference Range Comment Jun 14, 2024 10:17 AM [place] TESTOSTERONE-FREE (qu) Specimen Type: SERUM Comment: The concentration of free testosterone is derived from a mathematical model using total testosterone by LCMSMS, sex hormone binding globulin and albumin. This test was developed and its analytical performance characteristics have been determined by [employer] [place], [place]. It has not been cleared or approved by the U.S. Food and Drug Administration. This assay has been validated pursuant to the CLIA regulations and is used for clinical purposes. Test Performed by [facility], [address] [place], [place] M.D., Ph.D., Director of Laboratories , CLIA [id number] TEST PERFORMED AT: , Ordering Provider: ALBIN FARRELL Report Released Date/Time: May 08, 2024 11:11 AM Reporting Lab[facility] [address] [facility] [address] Performing Lab: [facility] [address] [address] TESTOSTER ONE-FREE (qu) 75.3 pg/mL 46.0-224.0 Jun 14, 2024 10:17 AM [place] TESTOSTERONE, TOTAL (WHV) Specimen Type : SERUM No comment entered. Ordering Provider: ALBIN FARRELL Report Released Date/Time: May 08, 2024 11:11 AM Reporting Lab: [facility] [address] [facility] [address] Performing Lab: [facility] [address] [facility] [address] TESTOSTER ONE, TOTAL (WHV) 303.02 ng/dL 220.00-892. 00 Jun 14, 2024 10:17 AM [place] LH Specimen Type: SERUM No comment entered. Ordering Provider: ALBIN FARRELL Report Released Date/Time: May 08, 2024 11:11 AM Reporting Lab: [facility] [address] [facility] [address] Performing Lab: [facility] [address] [facility] [address] LH 2.51 1-9 Jun 14, 2024 10:17 AM [place] FSH Specimen Type: SERUM No comment entered. Ordering Provider: ALBIN FARRELL Report Released Date/Time: May 08, 2024 11:11 AM Reporting Lab: [facility] [address] [facility] [address] Performing Lab: [facility] [address] [facility] [address] FSH 2.67 1-19 Jun 14, 2024 10:17 AM [place] PSA Specimen Type: SERUM No comment entered. Ordering Provider: ALBIN FARRELL Report Released Date/Time: May 08, 2024 11:11 AM Reporting Lab: [facility] [address] [facility] [address] Performing Lab: [facility] [address] [address] PSA 0.48 ng/mL 0.00-4.00 Jun 14, 2024 10:17 AM [place] PTH INTACT Specimen Type: SERUM No comment entered. Ordering Provider: ALBIN FARRELL Report Released Date/Time: May 08, 2024 11:11 AM Reporting Lab: [facility] [address] [facility] [address] Performing Lab: [facility] [address] [address] PTH INTACT 57.4 pg/mL 8.7-77.1 Encounter Notes: All associated encounter notes This section contains the clinical notes associated to the Encounter. Date/Time Encounter Note(s) Provider Source Jun 14, 2024 10:50 AM ADDENDUM: LOCAL TITLE: Addendum STANDARD TITLE: ADDENDUM DATE OF NOTE: JUN 14, 2024@10:50:44 ENTRY DATE: JUN 14, 2024@10:50:45 AUTHOR: ASA LA EXP COSIGNER: URGENCY: STATUS: COMPLETED Does need EKG? Thanks /orquidea/ Asa La RN Registered Nurse (RN) Signed: 06/14/2024 10:51 Receipt Acknowledged By: 06/14/2024 11:34 /orquidea/ ALBIN FARRELL PA-C STAFF PHYSICIAN DATA ENTRY SPECIALIST --- Original Document --- 06/14/24 WALK-IN NOTE PRIMARY CARE (T): <====Click to Start [facility] presents to the Primary Care clinic with the following request: [ ]Medication Renewal/Refill [ ]Consultation with Team RN [ ]Symptoms [ X ]Other The states they are: [ ]Waiting [ X ]Not Waiting No Walk in visit scheduled with PACT Nurse [ X ] At this encounter the Roma's demographics were verified. [ X ] At this encounter the Roma's Insurance information was verified. [ X ] At this encounter the below scheduled visits for the Roma were discussed and appointment reminder card was offered. Future appointments: 06/18/2024 14:30 CWM/SO/PHYSICAL THERAPY C 06/20/2024 10:00 COM CARE-COLONOSCOPY DIAG 07/10/2024 11:00 CWM/SO/MHC/CHELO 07/26/2024 10:30 CWM/SO/HOMESLEEP 1 Vet is in inquiring about an EKG. Says this was discussed at last visit. /orquidea/ TULIO MOSLEY Signed: 06/14/2024 10:26 Receipt Acknowledged By: * AWAITING SIGNATURE * ASA LA * AWAITING SIGNATURE * GABY CORDOBA HOLLY N [place] Jun 14, 2024 10:24 AM PRIMARY CARE NOTE: LOCAL TITLE: WALK-IN NOTE PRIMARY CARE (T) STANDARD TITLE: PRIMARY CARE NOTE DATE OF NOTE: JUN 14, 2024@10:24 ENTRY DATE: JUN 14, 2024@10:24:51 AUTHOR: TULIO FONTANEZ EXP COSIGNER: URGENCY: STATUS: COMPLETED WALK-IN NOTE PRIMARY CARE (T) Has ADDENDA <====Click to Start [facility] Roma presents to the Primary Care clinic with the following request: [ ]Medication Renewal/Refill [ ]Consultation with Team RN [ ]Symptoms [ X ]Other The states they are: [ ]Waiting [ X ]Not Waiting No Walk in visit scheduled with PACT Nurse [ X ] At this encounter the 's demographics were verified. [ X ] At this encounter the 's Insurance information was verified. [ X ] At this encounter the below scheduled visits for the Roma were discussed and appointment reminder card was offered. Future appointments: 06/18/2024 14:30 CWM/SO/PHYSICAL THERAPY C 06/20/2024 10:00 COM CARE-COLONOSCOPY DIAG 07/10/2024 11:00 CWM/SO/MHC/CHELO 07/26/2024 10:30 CWM/SO/HOMESLEEP 1 Vet is in inquiring about an EKG. Says this was discussed at last visit. /orquidea/ TULIO MOSLEY Signed: 06/14/2024 10:26 Receipt Acknowledged By: 06/14/2024 12:53 /es/ Asa La RN Registered Nurse (RN) 06/14/2024 11:43 /es/ GABY CORDOBA LPN LICENSED PRACTICAL NURSE 06/14/2024 ADDENDUM STATUS: COMPLETED Does need EKG? Thanks /orquidea/ Asa La RN Registered Nurse (RN) Signed: 06/14/2024 10:51 Receipt Acknowledged By: 06/14/2024 11:34 /es/ ALBIN FARRELL PA-C STAFF PHYSICIAN DATA ENTRY SPECIALIST TULIO FONTANEZFIELD
--- OUTSIDE RECORDS SUMMARY | 2024-06-21 00:05 | XMS_ITS | Encounter Summary ---
Author Name [facility] [place] Organization [facility] [place] Address [address] [place] [id number] Care Team Providers Care Telephone Station Repairer Name Role Phone ALBIN FARRELL Primary Care Provider Unavailabl e Selected Encounter This section includes the information on record at [place] for the Encounter. Date/Time Encounter Type Encounter Description Reason Provider Source May 08, 2024 10:30 AM OFFICE O/P EST MOD 30 MIN PRIMARY CARE/MEDICINE ICD-10-CM M54.50 Low back pain, unspecified ALBIN FARRELL Marija Encounter Template Text not used by [place] Assessments - Encounter Diagnoses This section includes the primary and secondary diagnoses documented for the Encounter. Date/Time Primary/Secondary Diagnosis Diagnosis Name Provider Source May 08, 2024 11:19 AM PRIMARY Low back pain, unspecified BERYLYOUNG Lindquist [facility] May 08, 2024 11:19 AM SECONDARY Irritable bowel syndrome, unspecified BERYLYOUNG [facility] May 08, 2024 11:19 AM SECONDARY Migraine w/o aura, not intractable, w/o status migrainosus YOUNG CORDOBA [place] Plan of Treatment: Future Appointments (+ 6 months) and Future Tests (+/- 45 days) The Plan of Treatment section includes future care activities for the patient from all [facility] treatment[facility]ilities. This section includes future appointments and future orders which are active, pending or scheduled. Future Appointments This section includes appointments that were scheduled to occur 6 months from the date of the Encounter, up to a maximum of 20 appointments. The data comes from all [place] treatment [facility]. Appointment Date/Time Appointment Type Appointme nt Facility Name Jun 14, 2024 10:30 AM AMBULATORY - PSYCHIATRY [facility] Jun 18, 2024 02:30 PM AMBULATORY - REHAB MEDICIN E [facility] Jun 20, 2024 10:00 AM AMBULATORY - NONE [place] [facility] Jul 18, 2024 07:30 AM AMBULATORY - REHAB MEDICIN E [place] Jul 26, 2024 10:30 AM AMBULATORY - MEDICINE [facility] Active, Pending, and Scheduled Orders This section includes a listing of several types of active, pending, and scheduled orders, including clinic medications orders, diagnostic test orders, procedure orders and consult orders; where the start date of the order is 45 days before the date of the Encounter or 45 days after the date of theEncounter. The data comes from all [facility]. Test Date/Time Test Type Test Details Facility Name Apr 23, 2024 12:00 AM Laboratory - Chemi stry Order TSH BLOOD (SST-SERUM) [facility] May 08, 2024 11:13 AM Consult Order HOME SLEEP STUDY NOX/SPOPC OUTPT Cons [facility] [place] May 16, 2024 12:00 AM Laboratory - Chemi stry Order TESTOSTERONE-FREE (qu) BLOOD (RED-PLAIN) SERUM [facility] May 16, 2024 12:00 AM Laboratory - Chemi stry Order TESTOSTERONE, TOTAL (WHV) BLOOD (SST-GOLD) SERUM [facility] May 23, 2024 12:00 AM Laboratory - Chemi stry Order TSH BLOOD (SST-SERUM) [facility] May 23, 2024 12:00 AM Laboratory - Chemi stry Order TESTOSTERONE, TOTAL (WHV) BLOOD (SST-GOLD) SERUM [facility] May 23, 2024 12:00 AM Laboratory - Chemi stry Order TESTOSTERONE-FREE (qu) BLOOD (RED-PLAIN) SERUM [facility] May 23, 2024 12:00 AM Laboratory - Chemi stry Order FSH BLOOD (RED-PLAIN) SERUM [facility] May 23, 2024 12:00 AM Laboratory - Chemi stry Order LH BLOOD (SST-SERUM) [facility] Jun 14, 2024 03:35 PM Consult Order COMMUNITY CARE- PSYCHOTHERAPY Cons [facility] Lab Results: +/- 30 days of the encounter This section includes the Chemistry and Hematology Lab Results on record with [place] for the patient. Radiology Reports and Pathology Reports are provided separately, in subsequent sections. Lab Results This section contains the Chemistry/Hematology Results that were resulted 30 days before or 30 daysafter the date of the Encounter. Date/Time Source Result Type Result - Unit Interpretation Reference Range Comment Apr 13, 2024 08:40 AM [facility] URIC ACID Specimen Type: SERUM No comment entered. Ordering Provider: ALBIN FARRELL Report Released Date/Time: Feb 22, 2024 01:07 PM Reporting Lab: [address] [address] Performing Lab: [address] [address] URIC ACID 6.5 mg/dL 3.5-7.2 Apr 13, 2024 08:40 AM [facility] TSH Specimen Type: SERUM No comment entered. Ordering Provider: ALBIN FARRELL Report Released Date/Time: Feb 22, 2024 01:07 PM Reporting Lab: [address] [address] Performing Lab: [address] [address] TSH 1.05 u[IU]/mL 0.35-5.00 Apr 13, 2024 08:40 AM [facility] URINALYSIS Specimen Type: URINE Comment: If Glucose = >500 and Ketones are positive, please alert the Physician. Ordering Provider: ALBIN FARRELL Report Released Date/Time: Feb 22, 2024 01:07 PM Reporting Lab: [address] [address] Performing Lab: [address] [address] UA COLOR Light-Yellow Yellow UA APPEARANCE Clear Clear UA GLUCOSE Normal mg/dL Negative UA KETONES NEGATIVE mg/dL Negative UA BLOOD NEGATIVE mg/dL Negative UA PROTEIN NEGATIVE mg/dL Negative UA NITRITE NEGATIVE mg/dL Negative UA BILIRUBIN NEGATIVE mg/dL Negative UA SPECIFIC GRAVITY 1.024 H 1.016-1.022 UA pH 6.0 5.0-9.0 UA UROBILINOGEN Normal mg/dL <2.0 UA LEUKOCYTE NEGATIVE Negative Apr 13, 2024 08:40 AM [facility] MICROALBUMIN CREATININE RATIO PANEL Spe cimen Type: URINE No comment entered. Ordering Provider: ALBIN FARRELL Report Released Date/Time: Feb 22, 2024 01:07 PM Reporting Lab: [facility] [address] [facility] [address] Performing Lab: [facility] [address] [facility] [address] MICROALBUMIN/C REATININE RATIO 5.7 mg/g 0-29.9 MICROALBUMIN,Q UANTITATIVE 0.8 mg/dL RR UNAVAIL CREATININE URINE 140.93 mg/dL Apr 13, 2024 08:40 AM [place] HEMOGLOBIN A1C PANEL Specimen Type: BLOOD Comment: [...] Feb 22, 2024 01:07 PM Reporting Lab: [facility] [address] [facility] [address] Performing Lab: [address] [address] HEMOGLOBIN A1C 4.7 4.0-5.6 Apr 13, 2024 08:40 AM [place] FERRITIN Specimen Type: SERUM No comment entered. Ordering Provider: ALBIN FARRELL Report Released Date/Time: Feb 22, 2024 01:07 PM Reporting Lab: [facility] [address] [facility] [address] Performing Lab: [address] [address] FERRITIN 91 ng/mL 20-300 Apr 13, 2024 08:40 AM [place] VITAMIN D (25-OH) Specimen Type: SERUM No comment entered. Ordering Provider: ALBIN FARRELL Report Released Date/Time: Feb 22, 2024 01:07 PM Reporting Lab: [address] [address] Performing Lab: [address] [address] VITAMIN D (25-OH) 41 ng/mL 20-50 Apr 13, 2024 08:40 AM [place] VITAMIN B12 Specimen Type: SERUM No comment entered. Ordering Provider: ALBIN FARRELL Report Released Date/Time: Feb 22, 2024 01:07 PM Reporting Lab: [address] [address] Performing Lab: [address] [address] VITAMIN B12 393 pg/mL 200-900 Apr 13, 2024 08:40 AM [place] CBC AND DIFF (AUTO) Specimen Type: BLOOD No comment entered. Ordering Provider: ALBIN FARRELL Report Released Date/Time: Feb 22, 2024 01:07 PM Reporting Lab: [address] [address] Performing Lab: [address] [address] WBC 4.94 10*3/uL 4.50-11.00 RBC 4.96 10*6/uL [...] 10*3/uL 0.00-0.00 Apr 13, 2024 08:40 AM [place] PSA Specimen Type: SERUM No comment entered. Ordering Provider: ALBIN FARRELL Report Released Date/Time: Feb 22, 2024 01:07 PM Reporting Lab: [facility] [address] [address] Performing Lab: [address] [address] PSA 0.46 ng/mL 0.00-4.00 Apr 13, 2024 08:40 AM [place] BASIC METABOLIC PANEL (fasting) Specime n Type: SERUM No comment entered. Ordering Provider: ALBIN FARRELL Report Released Date/Time: Feb 22, 2024 01:07 PM Reporting Lab: [facility] [address] [address] Performing Lab: [facility] [address] [address] UREA NITROGEN 18 mg/dL 7-25 GLUCOSE 85 mg/dL 65-100 SODIUM 139 mmol/L 135-145 POTASSIUM 4.5 mmol/L 3.5-5.0 CHLORIDE 106 mmol/L 100-110 CO2 23 meq/L 20-30 CREATININE, Serum 1.03 mg/dL 0.50-1.40 eGFR(CKD-EPI 2020) >90 mL/min >60 Apr 13, 2024 08:40 AM [place] LIVER FUNCTION Specimen Type: SERUM No comment entered. Ordering Provider: ALBIN FARRELL Report Released Date/Time: Feb 22, 2024 01:07 PM Reporting Lab: [facility] [address] [address] Performing Lab: [address] [address] PROTEIN,TOTAL 7.2 g/dL 6.0-8.3 ALBUMIN 4.4 g/dL 3.5-5.0 ALKALINE PHOSPHATASE 38 U/L L 40-150 AST 21 U/L 5-34 ALT 28 U/L BILIRUBIN, TOTAL 0.4 mg/dL 0.2-1.2 Apr 13, 2024 08:40 AM [place] LIPID PANEL FASTING Specimen Type: SERUM No comment entered. Ordering Provider: ALBIN FARRELL Report Released Date/Time: Feb 22, 2024 01:07 PM Reporting Lab: [address] [address] Performing Lab: [address] [address] CHOLESTEROL 178 mg/dL TRIGLYCERIDE 69 mg/dL 0-150 LDL calculated 112 mg/dL 0-129 CHOL/HDL 3.4 HDL CHOLESTEROL 52 mg/dL 40-60 Apr 13, 2024 08:40 AM [place] CALCIUM Specimen Type: SERUM No comment entered. Ordering Provider: ALBIN FARRELL Report Released Date/Time: Feb 22, 2024 01:07 PM Reporting Lab: [address] [address] Performing Lab: [address] [address] CALCIUM 9.5 mg/dL 8.5-10.2 Vital Signs: All taken on the encounter date This section contains inpatient and outpatient Vital Signs collected on the date of the Encounter. Date/Time Temperature Pulse Blood Pressure Respiratory Rate SP02 Pain Height Weight Body Mass Index Source May 08, 2024 11:18 AM 96.9 79 121/59 18 97 210 32 [facility] IE Social History: Smoking Status (Most current) and [...] place. Date/Time Current Smoking Status Comment Facil susan Feb 22, 2024 11:00 AM [place]-TOBACCO NEVER USED [place] Radiology Reports: +/- 30 days of the [...] the Encounter. The data comes from all [place] treatment facilities. Date/Time Radiology Report Provider Source Apr 16, 2024 08:53 AM SPINE LUMBOSACRAL MIN 2 VIEWS: KEITH PASCUAL BANNER [id number] -1990 M Exm Date: APR 16, 2024@08:53 Req Phys: ALBIN FARRELL Loc: CWM/SO/PACT 3 WH (Req'g Loc) Img Loc: [facility] 1 Service: [place] [address] (Case 48 COMPLETE) SPINE LUMBOSACRAL MIN 2 VIEWS (RAD Detailed) CPT:86060 Reason for Study: lbp and thoracic back Clinical History: seems purely muscular no neurologic sx Report Status: Verified Date Reported: APR 16, 2024 Date Verified: APR 16, 2024 Drop Pit Worker E-Sig:/ES/MANSIHA GARCIA JR Report: Study: AP and lateral [...] Primary Interpreting Staff: MANISHA GARCIA JR, Radiologist (Drop Pit Worker) /MANISHA BRANDT JR [facility] Apr 16, 2024 08:53 AM SPINE THORACIC, 2 VIEWS: KEITH PASCUAL BANNER [id number] -1990 M Exm Date: APR 16, 2024@08:53 Req Phys: ALBIN FARRELL Loc: CWM/SO/PACT 3 WH (Req'g Loc) Img Loc: [facility] 1 Service: [place] [address] (Case 49 COMPLETE) SPINE THORACIC, 2 VIEWS (RAD Detailed) CPT:97966 Reason for Study: lbp and thoracic back Clinical History: seems purely muscular no neurologic sx Report Status: Verified Date Reported: APR 16, 2024 Date Verified: APR 16, 2024 Drop Pit Worker E-Sig:/ES/MANISHA GARCIA JR Report: Study: AP and [...] Primary Interpreting Staff: MANISHA GARCIA JR, Radiologist (Drop Pit Worker) /MANISHA BRANDT JR [facility] Encounter Notes: All associated encounter notes This section contains the clinical notes associated to the Encounter. Date/Time Encounter Note(s) Provider Source May 08, 2024 11:20 AM LETTERS: LOCAL TITLE: PATIENT LETTER (T) STANDARD TITLE: LETTERS DATE OF NOTE: MAY 08, 2024@11:20 ENTRY DATE: MAY 08, 2024@11:20:35 AUTHOR: ALBIN FARRELL COSIGNER: URGENCY: STATUS: COMPLETED [facility] Toll Free Number Primary Care Telephone Assistance can be reached at extension [phone] [facility] scheduling can be reached at extension [phone] [facility] scheduling can be reached at ext [phone] KEITH PASCUAL [address], [place], [address] Dear , testos laBS Sincerely, Your Primary Care Team [facility] [address] [facility] [address] [place] [address] [place] [address] [phone] [facility] [facility] Outpatient [facility] [address] [place] [address] [place], [place] [id number] [facility] [address] [facility] [place] [address] [place] [address] [phone] ALBIN FARRELL May 08, 2024 11:18 AM PREVENTIVE MEDICIN E NURSING NOTE: LOCAL TITLE: CLINICAL REMINDERS/NURSING STANDARD TITLE: PREVENTIVE MEDICINE NURSING NOTE DATE OF NOTE: MAY 08, 2024@11:18 ENTRY DATE: MAY 08, 2024@11:19:01 AUTHOR: GABY CORDOBA EXP COSIGNER: URGENCY: STATUS: COMPLETED Influenza Immunization: Deferral / Refusal The patient declines to receive the recommended dose of seasonal influenza vaccine. Immunization: INFLUENZA, UNSPECIFIED FORMULATION Refusal Reason: PATIENT DECISION Patient refuses all immunization(s) in the FLU group Date Documented: 05/08/24 11:19 Td / Tdap Immunization: Prior Td vaccination The patient may have been vaccinated in the past but written documentation of vaccination is not available today. Patient instructed to obtain a written record of the prior vaccine and bring it to the next appointment. COVID-19 Immunization: Vaccine given previously - no written/electronic documentation available The patient was instructed to bring a copy of their COVID-19 vaccine information to their next appointment so that this can be accurately recorded in their [facility] medical record. 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; mri of l-spine suports muscl-lig pathology; not a surg case; is s/p labral repair of l shldr; kind of better sees chiropractor chronic migraine cassidy's; currently seeing neuro at [facility]; doing trials various meds; I started imitrex and gets it from me irritable bowel (IBS) bentyl abates sx more sinus congestion: start trial flonse inh O - coop A&Ox3 NAD W-N/H/D A/P - 1) Mech LBP 2) Bilat Shldr Pain 3) Chronic Rhinitis 4) IBS 5) Migraine CASSIDY's 6) Low Energy and ED - LABS: Low Test w/u and Labs - CON: Sleep Study RTC MAR 04 - Medication Reconciliation: Outpatient: Has the patient been taking medications as documented in the EMLR? YES: The patient has been taking medications as documented in the EMLR. Essential Medication List for Review used to complete this medication reconciliation. INCLUDED IN THIS LIST: Alphabetical list of active outpatient prescriptions dispensed from this [place] (local) and dispensed from another [place] or [facility] facility (remote) as well as inpatient orders [...] whether with a VA or non-VA provider. /orquidea/ ALBIN AFRRELL PA-C STAFF PHYSICIAN SURFACE LAY OUT TECHNICIAN Signed: 05/08/2024 11:20 ALBIN FARRELL
--- OUTSIDE RECORDS SUMMARY | 2024-06-21 00:05 | XMS_ITS ---
Author Name [facility] [place] [facility] [place] Organization [facility] ([place]) Address [address] [place] [address] Care Team Providers Care Oven Stripper Name Role Phone ALBIN FARRELL Primary Care Provider Unavailabl e Selected Encounter This section includes the information on record at [place] for the Encounter. Date/Time Encounter Type Encounter Description Reason Pro vider Source Jun 14, 2024 09:51 AM Outpatient Encounter MENTAL [facility] IHE Encounter Template Text not used by [...] 2024 02:30 PM AMBULATORY - REHAB MEDICIN [facility] Jun 20, 2024 10:00 AM AMBULATORY - NONE [facility] Jul 18, 2024 07:30 AM AMBULATORY - REHAB MEDICIN E [facility] Jul 26, 2024 10:30 AM AMBULATORY - [...] Order HOME SLEEP STUDY NOX/SPOPC OUTPT [facility] May 16, 2024 12:00 AM Laboratory - Chemi stry Order TESTOSTERONE-FREE (qu) BLOOD (RED-PLAIN) SERUM [facility] May 16, 2024 12:00 AM Laboratory - Chemi stry Order TESTOSTERONE, TOTAL (WHV) BLOOD (SST-GOLD) SERUM [facility] May 23, 2024 12:00 AM Laboratory - Chemi stry Order TSH BLOOD (SST-SERUM) [facility] May 23, 2024 12:00 AM Laboratory - Chemi stry Order TESTOSTERONE, TOTAL (WHV) BLOOD (SST-GOLD) SERUM [facility] May 23, 2024 12:00 AM Laboratory - Chemi stry Order TESTOSTERONE-FREE (qu) BLOOD (RED-PLAIN) SERUM [facility] May 23, 2024 12:00 AM Laboratory - Chemi stry Order FSH BLOOD (RED-PLAIN) SERUM [facility] May 23, 2024 12:00 AM Laboratory - Chemi stry Order LH BLOOD (SST-SERUM) [facility] Jun 14, 2024 03:35 PM Consult Order [facility] Cons [facility] Lab Results: +/- 30 days of [...] Range Comment Jun 14, 2024 10:17 AM [facility] TESTOSTERONE-FREE (qu) Specimen Type: SERUM Comment: The concentration of free testosterone is derived from a mathematical model using total testosterone by LCMSMS, sex hormone binding globulin and albumin. This test was developed and its analytical performance characteristics have been determined by [employer] [place], [place]. It has not been cleared or approved by the U.S. Food and Drug Administration. This assay has been validated pursuant to the CLIA regulations and is used for clinical purposes. Test Performed by [facility], [facility], [address] [place], [place] M.D., Ph.D., Director of Laboratories , CLIA [id number] TEST PERFORMED AT: , Ordering Provider: ALBIN FARRELL Report Released Date/Time: May 08, 2024 11:11 AM Reporting Lab[facility] [address] [facility] [address] Performing Lab: [facility] [address] [address] TESTOSTER ONE-FREE (qu) 75.3 pg/mL 46.0-224.0 Jun 14, 2024 10:17 AM [facility] TESTOSTERONE, TOTAL (WHV) Specimen Type : SERUM No comment entered. Ordering Provider: ALBIN FARRELL Report Released Date/Time: May 08, 2024 11:11 AM Reporting Lab[facility] [address] [facility] [address] Performing Lab: [facility] [address] [facility] [address] TESTOSTER ONE, TOTAL (WHV) 303.02 ng/dL 220.00-892. 00 Jun 14, 2024 10:17 AM [facility] LH Specimen Type: SERUM No comment entered. Ordering Provider: ALBIN FARRELL Report Released Date/Time: May 08, 2024 11:11 AM Reporting Lab[facility] [address] [facility] [address] Performing Lab: [facility] [address] [facility] [address] LH 2.51 1-9 Jun 14, 2024 10:17 AM [facility] FSH Specimen Type: SERUM No comment entered. Ordering Provider: ALBIN FARRELL Report Released Date/Time: May 08, 2024 11:11 AM Reporting Lab: [facility] [address] [facility] [address] Performing Lab: [facility] [address] [facility] [address] FSH 2.67 1-19 Jun 14, 2024 10:17 AM [facility] PSA Specimen Type: SERUM No comment entered. Ordering Provider: ALBIN FARRELL Report Released Date/Time: May 08, 2024 11:11 AM Reporting Lab: [facility] [address] [facility] [address] Performing Lab: [facility] [address] [facility] [address] PSA 0.48 ng/mL 0.00-4.00 Jun 14, 2024 10:17 AM [facility] PTH INTACT Specimen Type: SERUM No comment entered. Ordering Provider: ALBIN FARRELL Report Released Date/Time: May 08, 2024 11:11 AM Reporting Lab: [facility] [address] [facility] [address] Performing Lab: [facility] [address] [facility] [address] PTH INTACT 57.4 pg/mL 8.7-77.1 Encounter Notes: All associated encounter notes This section contains the clinical notes associated to the Encounter. Date/Time Encounter Note(s) Provider Source Jun 14, 2024 09:51 AM ADMINISTRATIVE NOT E: LOCAL TITLE: ADMINISTRATIVE NOTE STANDARD TITLE: ADMINISTRATIVE NOTE DATE OF NOTE: JUN 14, 2024@09:51 ENTRY DATE: JUN 14, 2024@09:51:42 AUTHOR: DOMINGO MARTINS EXP COSIGNER: URGENCY: STATUS: COMPLETED called clinic to requesting appt seeking MH services. appt scd'd 07/10/2024 @ 1100 f2f. reminder letter sent at this time. /roquidea/ DOMINGO MARTINS ADVANCED TRAFFIC CONTROL FLAGGER Signed: 06/14/2024 09:58 Receipt Acknowledged By: 06/14/2024 10:23 /es/ MORA Velez CHILD CARE COUNSELOR DOMINGO MARTINS
--- OUTSIDE RECORDS SUMMARY | 2024-06-21 00:05 | XMS_ITS | Encounter Summary ---
Author Name [facility] Organization [facility] Address [address] [place] [id number] Care Team Providers Care Byproduct Engineer Name Role Phone ALBIN FARRELL Primary Care Provider Chantel reilly Selected Encounter This section includes the information on record at [place] for the Encounter. Date/Time Encounter Type Encounter Description Reason Provider Source Jun 18, 2024 02:30 PM THERAPEUTIC EXERCISES PHYSICAL THERAPY ICD-10-CM M54.51 Vertebrogenic low back pain LINO RUTH Marija Encounter Template Text not used by [place] Assessments - Encounter Diagnoses This section includes the primary and secondary diagnoses documented for the Encounter. Date/Time Primary/Secondary Diagnosis Diagnosis Name Provider Source Jun 20, 2024 09:30 AM PRIMARY Vertebrogenic low back pain CHON RUTH [...] Appointment Type Appointme nt Facility Name Jun 20, 2024 10:00 AM AMBULATORY - NONE [place] [facility] Jul 18, 2024 07:30 AM AMBULATORY - REHAB [facility] Jul 26, 2024 10:30 AM [facility] - [facility] Active, Pending, and Scheduled Orders This [...] Order HOME SLEEP STUDY NOX/SPOPC OUTPT Cons [employer] [place] May 16, 2024 12:00 AM Laboratory - Chemi stry Order TESTOSTERONE-FREE (qu) BLOOD (RED-PLAIN) SERUM [facility] May 16, 2024 12:00 AM Laboratory - Chemi stry Order TESTOSTERONE, TOTAL (WHV) BLOOD (SST-GOLD) SERUM [facility] May 23, 2024 12:00 AM Laboratory - Chemi stry Order TSH BLOOD (SST-SERUM) [facility] May 23, 2024 12:00 AM Laboratory - Chemi stry Order TESTOSTERONE, TOTAL (WHV) BLOOD (SST-GOLD) SERUM [facility] May 23, 2024 12:00 AM Laboratory - Chemi stry Order TESTOSTERONE-FREE (qu) BLOOD (RED-PLAIN) SERUM [facility] May 23, 2024 12:00 AM Laboratory - Chemi stry Order FSH BLOOD (RED-PLAIN) SERUM [facility] May 23, 2024 12:00 AM Laboratory - Chemi stry Order LH BLOOD (SST-SERUM) [facility] Jun 14, 2024 03:35 PM Consult Order [facility]plane [employer] Lab Results: +/- 30 days of the [...] Range Comment Jun 14, 2024 10:17 AM [place] TESTOSTERONE-FREE (qu) Specimen Type: SERUM Comment: The concentration of free testosterone is derived from a mathematical model using total testosterone by LCMSMS, sex hormone binding globulin and albumin. This test was developed and its analytical performance characteristics have been determined [place] It has not been cleared or approved by the U.S. Food and Drug Administration. This assay has been validated pursuant to the CLIA regulations and is used for clinical purposes. Test Performed by [facility], [facility], [address] [place] [address] [place] M.D., Ph.D., Director of Laboratories , CLIA [id number] TEST PERFORMED AT: , Ordering Provider: ALBIN FARRELL Report Released Date/Time: May 08, 2024 11:11 AM Reporting Lab: [facility] [address] [facility] [address] Performing Lab: [facility] [address] [facility], [address] [place] [address] TESTOSTER ONE-FREE (qu) 75.3 pg/mL 46.0-224.0 Jun 14, 2024 10:17 AM [place] TESTOSTERONE, TOTAL (WHV) Specimen Type : SERUM No comment entered. Ordering Provider: ALBIN FARRELL Report Released Date/Time: May 08, 2024 11:11 AM Reporting Lab: [facility] [address] [facility] [address] Performing Lab: [facility] [address] [facility] [address] TESTOSTER ONE, TOTAL (WHV) 303.02 ng/dL 220.00-892. 00 Jun 14, 2024 10:17 AM [place] LH Specimen Type: SERUM No comment entered. Ordering Provider: ALBIN FARRELL Report Released Date/Time: May 08, 2024 11:11 AM Reporting Lab: [facility] [address] [facility] [address] Performing Lab: [facility] [address] [facility] [address] LH 2.51 1-9 Jun 14, 2024 10:17 AM [place] FSH Specimen Type: SERUM No comment entered. Ordering Provider: ALBIN FARRELL Report Released Date/Time: May 08, 2024 11:11 AM Reporting Lab: [facility] [address] [facility] [address] Performing Lab: [facility] [address] [facility] [address] FSH 2.67 1-19 Jun 14, 2024 10:17 AM [place] PSA Specimen Type: SERUM No comment entered. Ordering Provider: ALBIN FARRELL Report Released Date/Time: May 08, 2024 11:11 AM Reporting Lab: [facility] [address] [facility] [address] Performing Lab: [facility] [address] [facility] [address] PSA 0.48 ng/mL 0.00-4.00 Jun 14, 2024 10:17 AM [place] PTH INTACT Specimen Type: SERUM No comment entered. Ordering Provider: ALBIN FARRELL Report Released Date/Time: May 08, 2024 11:11 AM Reporting Lab: [facility] [address] [facility] [address] Performing Lab: [facility] [address] [facility] [address] PTH INTACT 57.4 pg/mL 8.7-77.1 Social History: Smoking Status (Most current) and Tobacco Use (All prior to encounter date) This section includes the most current, and the historical, smoking and tobacco- related health factors from the [place] facility where the Encounter took place. Current Smoking Status This section includes the most current smoking, or tobacco-related health factor, from the [place] facility where the Encounter took place. Date/Time Current Smoking Status Comment Denisa davis Feb 22, 2024 11:00 AM [place]-TOBACCO NEVER USED [place] Encounter Notes: All associated encounter notes This section contains the clinical notes associated to the Encounter. Date/Time Encounter Note(s) Provider Source Jun 18, 2024 07:39 AM PHYSICAL MEDICINE REHAB TREATMENT PLAN NOTE: LOCAL TITLE: PHYSICAL THERAPY PROGRESS NOTE STANDARD TITLE: PHYSICAL MEDICINE REHAB TREATMENT PLAN NOTE DATE OF NOTE: JUN 18, 2024@07:39 ENTRY DATE: JUN 18, 2024@07:39:44 AUTHOR: CHON RUTH COSIGNER: URGENCY: STATUS: COMPLETED Initial Evaluation date: 05/01/24 Progress Note Date: 11/22/24 Treatment #: 1 Treatment time: 30 Diagnosis: Vertebrogenic low back pain(ICD-10-CM M54.51) Provider: ALBIN FARRELL PT Treatment Precautions: Patient identified by full name and date of SUBJECTIVE: Patient reports no major changes in their symptoms since initial evaluation. Still having difficulty while sleeping but is getting a new mattress to try soon. 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 INTERVENTIONS: Theapeutic exercise: Mins: 20 Access Code: [email or web address] URL: [email or web address] Date: 06/19/2024 Prepared by: Chon Ruth Exercises - Prone Press Up - 2-3 x daily - 7 x weekly - 10 reps - 10 hold - Cat Cow - 1 x daily - 7 x weekly - 2 sets - 10 reps - Half Kneeling Hip Flexor Stretch - 1 x daily - 7 x weekly - 3 sets - 30 hold - Supine Bug with Leg Extension - 1 x daily - 7 x weekly - 2-3 sets - 10-20 reps - Supine Lower Trunk Rotation - 1 x daily - 7 x weekly - 3 sets - 10 reps - Side Plank with Clam and Resistance - 1 x daily - 7 x weekly - 3 sets - 10 reps - Bird Dog - 1 x daily - 7 x weekly - 3 sets - 10 reps - 3 hold - Sidelying Thoracic Rotation with Open Book - 1 x daily - 7 x weekly - 3 sets - 10 reps - Anti-Rotation Sidestepping with Resistance - 1 x daily - 7 x weekly - 3 sets - 10 reps Patient education: Mins: 5 Provided written HEP to patient with therex from today reviewing proper form sets reps and frequency and safety precautions with patient verbalizing and demonstrating good understanding in clinic. Education provided on moving in pain free ranges and that signs of crepitus are a normal response for stiff joints and are not a sign of structural damage. ASSESSMENT: Patient was seen for follow up and reassessment since initial evaluation. On subjective account patient has minimal improvement in their symptoms. On reassessment patient has mild improvement in lumbar ROM meeting their goal for 25% increase on lumbar extension. Patient tolerates lumbar and thoracic mobility exercises well and has observed restriction with movements to their right side. Patient tolerates core strengthening of deadbugs and paloff press well but has some difficulty with bird dog exercises. Patient benefits from verbal cue to engage core and tuck pelvis as well as a tactile cue of a foam roller to keep level on his back. POC was discussed and agreed for a follow up visit in a month to assess progress. GOALS: in 4-6weeks, patient will demonstrate: consistent carryover of HEP 5/7 days per week with patient able to independentlyteach back 75% of exercises 2pt decrease in [...] task 25% improvement in lumbar extension ROM - MET PLAN: Plan to address core stabilization exercises and progress as tolerated. Stretch out hip structures to improve restriction in mobility and strengthen the glutes to help with weight bearing activities. Progress extension-based exercises as tolerated and continue on lumbar and thoracic mobility. [x]Low impact cardio: [X]Nustep []Recumbent bike []Recumbent elliptical []TM []Manual: []STM/DTM []METs/SCS []IASTM []Joint mobilizations [x]Therex: [X]Progressive UQ [X]Progressive Core X[]Progressive LQ []UQ flex [X] Lumbar flex []LQ flex [X]Foam rolling []Proprioception []Neuro Re-education: []Static []Dynamic []Dual-Task [x]Education: [X]Posture [X]Ergonomics []Bodymechanics []Self-care strategies []PNE []Modalities(PRN): []Heat/Ice []Estim/Tens []Mechanical traction []K-tape [] Biofreeze Initial This visit was primarily performed by [place] [facility], however, I, Chon Ruth PT, DPT, was present during the course of this visit in its entirety providing direct supervision for this student. I agree with treatment and plan of care as stated. /es/ CHON RUTH PT DPT PHYSICAL THERAPIST Signed: 06/20/2024 09:31 CHON RUTH
== END 2024-06-20 12:46 | disposition home or self-care (01) ==
PROVIDERS: Visit Provider Nurse Practitioner Family
DX: Z83.79 Family history of other diseases of the digestive system (principal); K59.1 Functional diarrhea
CPT/HCPCS: 99204

== ENCOUNTER → 2024-06-20 10:05 | Outpatient (BNVA) | payer OTHER, SELFPAY | PROVIDERS: Visit Provider Nurse Practitioner Family | DX: Z01.818 Encounter for other preprocedural examination (principal); K59.1 Functional diarrhea; Z83.79 Family history of other diseases of the digestive system | CPT/HCPCS: 99202 ==